=== PATIENT | female | born 1935 | race Caucasian/White ===

== ENCOUNTER 2016-08-25 09:36 | Emergency (ER) | payer OTHER ==
[2016-08-25 09:43] VITALS: TEMP 97.4; BMI 43.1
--- NOTE | 2016-08-25 10:01 | PDOC ---
History of Present Illness - General History Source: Patient Exam Limitations: No Limitations - History of Present Illness Initial Comments: 08/25/16 11:51 The patient is a 80 year old turkish speaking female, accompanied by daughter with a significant past medical history of HTN, CVA (on plavix), seizure, panic attacks, anxiety, depression who presents to the emergency department with suprapubic pain, vomiting and nausea. The patient states she visited DR last month and was seen by her doctor there for lower abdominal pain. She was found to have a UTI and was prescribed Ciprofloxacin. The patient has not been compliant due to persistent nausea. She also reports minor dysuria however denies frequency, urgency or hematuria. She denies chest pain, headache or dizziness. She denies fever, chills, diarrhea or constipation. She denies dysuria, Allergies: Penicillins Past surgical history:Cholecystectomy, L knee replacement Social history: Denies PCP: None <Ayleen Loo - Last Filed: 08/25/16 11:50> <Elizabeth Snyder - Last Filed: 08/25/16 14:19> - General Chief Complaint: Pain Stated Complaint: ABDOMINAL PAIN/vomiting Time Seen by Provider: 08/25/16 10:01 Past History <Ayleen Loo - Last Filed: 08/25/16 11:50> - Past Medical History CVA: Yes ("MINI-STROKE" 1 YR AGO) HTN: Yes Psychiatric Problems: Yes Seizures: Yes (due to panic attack) Other medical history: anxiety - Surgical History Abdominal Surgery: Yes ("reconstruction") Cholecystectomy: Yes Orthopedic Surgery: Yes (LT KNEE REPLACEMENT) - Psycho/Social/Smoking Cessation Hx Anxiety: No Suicidal Ideation: No Smoking Status: No Smoking History: Never smoked Have you smoked in the past 12 months: No Number of Cigarettes Smoked Daily: 0 Information on smoking cessation initiated: No Hx Alcohol Use: No Drug/Substance Use Hx: No Substance Use Type: None Hx Substance Use Treatment: No <Elizabeth Snyder - Last Filed: 08/25/16 14:19> - Past Medical History Allergies/Adverse Reactions: Allergies Allergy/AdvReac Type Severity Reaction Status Date / Time Penicillins AdvReac Severe Vomiting Verified 08/25/16 09:43 Home Medications: Ambulatory Orders Nebivolol [Bystolic -] 5 mg PO DAILY 05/11/16 Pregabalin [Lyrica] 100 mg PO BID 05/11/16 Omeprazole 40 mg PO DAILY 05/13/16 Levetiracetam [Keppra -] 500 mg PO BID #60 tablet 05/14/16 Ciprofloxacin HCl [Cipro] 250 mg PO BID 08/25/16 Review of Systems - Review of Systems Able to Perform ROS?: Yes Comments:: 08/25/16 11:51 Constitutional - Pt denies Fever, Chills, weakness, HEENT: Denies vision changes, sore throat RESPIRATORY: Denies cough, sob, hemoptysis CARDIAC: Denies chest pain, palpitations, light headedness, leg swelling ABD/GI: + suprapubic abdominal pain. + nausea, vomiting. No blood per rectum, melena, diarrhea : Denies dysuria, frequency, discharge MUSCULOSKELETAL - Denies back pain, joint swelling SKIN - Denies bruising, erythema, rash NEUROLOGICAL: Denies headache, numbness, focal weakness, tingling, ataxia, weakness HEMATOLOGIC: Denies anemia, easy bruising, easy bleeding <Ayleen Loo - Last Filed: 08/25/16 11:50> *Physical Exam - Vital Signs Last Vital Signs Temp Pulse Resp BP Pulse Ox 97.4 F L 71 19 199/102 96 08/25/16 09:41 08/25/16 09:41 08/25/16 09:41 08/25/16 09:41 08/25/16 09:41 - Physical Exam Comments: 08/25/16 11:51 GENERAL: + obese. The patient is awake, alert, and fully oriented, Nontoxic - in no acute distress. HEAD: Normocephalic, atraumatic. EYES: Extraocular movements intact, sclera anicteric, conjunctiva clear. ENT: Normal voice, moist mucous membranes. NECK: Normal range of motion, supple without lymphadenopathy, JVD, or masses. LUNGS: Breath sounds equal, clear to auscultation bilaterally. No wheezes, no crackles, no rales. HEART: Regular rate and rhythm, normal S1 and S2 without murmur, rub or gallop. ABDOMEN: + suprapubic tenderness to palpation. Soft, normoactive bowel sounds. No guarding, no rebound. No masses. EXTREMITIES: Normal range of motion, no edema. No clubbing or cyanosis. No cords , erythema, or tenderness. NEUROLOGICAL: Fully Oriented, Alert, Normal Mood/Affect, Motor Strength 5/5. No facial asymmetry, Normal speech. SKIN: Warm, Dry, normal turgor, no rashes or lesions noted. <Ayleen Loo - Last Filed: 08/25/16 11:50> - Vital Signs Last Vital Signs Temp Pulse Resp BP Pulse Ox 97.4 F L 71 19 199/102 96 08/25/16 09:41 08/25/16 09:41 08/25/16 09:41 08/25/16 09:41 08/25/16 09:41 <Elizabeth Snyder - Last Filed: 08/25/16 14:19> ED Treatment Course - LABORATORY CBC & Chemistry Diagram: 08/25/16 12:01 08/25/16 12:01 <Elizabeth Snyder - Last Filed: 08/25/16 14:19> Medical Decision Making - Medical Decision Making 08/25/16 12:27 I, Dr. Elizabeth Snyder, attest that the scribes documentation that appears above has been prepared under my direction and personally reviewed by me. I confirmed that the note above accurately reflects all work, treatment, procedures, and medical decision-making performed by me. 08/25/16 14:15 Pt 's b/p decreased after labetalol in ed, pt had not taken her b/p meds today. PT's abdomominal pain improved, pt has cipro prescribed yesterday by her pcp for this pain, pt has RX from pcp to have abdominal sonogram done to evaluate this pain. Pt's headache resolved after tylenol, Pt stable for dc home with out pt f/u with pcp, pt to take cipro ordered by pcp yesterday <Elizabeth Snyder - Last Filed: 08/25/16 14:19> *DC/Admit/Observation/Transfer - Attestations Scribe Attestion: 08/25/16 11:51 Documentation prepared by Ayleen Loo, acting as medical appliance maker for Elizabeth Snyder MD <Ayleen Loo - Last Filed: 08/25/16 11:50> - Discharge Dispostion Admit: No <Elizabeth Snyder - Last Filed: 08/25/16 14:19> Diagnosis at time of Disposition: UTI (urinary tract infection), Abdominal pain - Discharge Dispostion Disposition: HOME Condition at time of disposition: Stable - Referrals Referrals: STAFF,NOT ON [Primary Care Provider] - - Patient Instructions Additional Instructions: return to ed for fever, increased pain in abdomen, nausea and vomiting or as needed. Pt agrees with this dc plan
[2016-08-25] MEDS ORDERED: LABETALOL HCL 5 MG/1 ML (100MG/20 ML VIAL) IVPUSH ONE (11:40)
[2016-08-25] MEDS ORDERED: LABETALOL HCL 5 MG/1 ML (200MG/40ML VIAL) IVPB ONE (12:14)
[2016-08-25 12:23] LABS: BASOPHIL 0.9 % (0-2.0); EOSINOPHIL 0.4 % (0-4.5); MCH 25.5 pg (25.7-33.7); MEAN CELL VOLUME 77.5 fl (80-96); MEAN PLT VOLUME 7.6 fl (7.5-11.1); NEUTROPHILS 66.3 % (42.8-82.8); PLATELET COUNT 256 K/MM3 (134-434); RDW 17.9 % (11.6-15.6); WHITE BLOOD COUNT 9.9 K/mm3 (4.0-10.0)
[2016-08-25 12:27] LABS: URINE APPEARANCE CLEAR; URINE BILIRUBIN NEGATIVE (NEGATIVE); URINE BLOOD NEGATIVE (NEGATIVE); URINE COLOR STRAW; URINE GLUCOSE (UA) NEGATIVE (NEGATIVE); URINE KETONE TRACE (NEGATIVE); URINE NITRITE NEGATIVE (NEGATIVE); URINE PROTEIN NEGATIVE (NEGATIVE); URINE UROBILINOGEN NEGATIVE E.U./dl (0.2-1.0)
[2016-08-25 12:34] LABS: URINE LEUK ESTERASE TRACE (NEGATIVE)
[2016-08-25 12:42] LABS: URINE BACTERIA MODERATE /hpf (NONE SEEN); URINE MUCUS RARE; URINE RBC <1 /hpf (0-3); URINE WBC 12 /hpf (3-5)
[2016-08-25 12:48] LABS: ALBUMIN 3.5 g/dl (3.4-5.0); ANION GAP 10 (8-16); BILIRUBIN,TOTAL 0.7 mg/dL (0.2-1.0); CALCIUM 9.3 mg/dL (8.5-10.1); CO2 26 mmol/L (21-32); CREATININE 0.9 mg/dL (0.55-1.02); GLUCOSE,RANDOM 94 mg/dL (74-106); SGOT/AST 28 U/L (15-37); SGPT/ALT 28 U/L (12-78); TOT PROT 7.6 g/dl (6.4-8.2)
[2016-08-25 12:49] LABS: ALK PHOS 106 U/L (45-117)
[2016-08-25] MEDS ORDERED: ACETAMINOPHEN 500 MG TABLET (FP) PO ONE (13:32)
[2016-08-25] MEDS ORDERED: ACETAMINOPHEN 325 MG TABLET (FP) ONE (13:40)
[2016-08-25 14:27] VITALS: BP 147/85; PULSE 90
== END 2016-08-25 14:30 | disposition home or self-care (01) ==
LOC: JER 09:36
DX: N39.0 Urinary tract infection, site not specified (principal); F41.9 Anxiety disorder, unspecified; G40.909 Epilepsy, unspecified, not intractable, without status epilepticus; I10 Essential (primary) hypertension; Z86.73 Personal history of transient ischemic attack (TIA), and cerebral infarction without residual deficits; Z79.01 Long term (current) use of anticoagulants; B96.89 Other specified bacterial agents as the cause of diseases classified elsewhere
CPT/HCPCS: 36415; 80053; 81003; 81015; 85025; 87086; 87186; 99283-25

== ENCOUNTER 2018-03-19 17:07 | Emergency (ER) | payer OTHER ==
[2018-03-19 17:43] VITALS: BP 166/53; PULSE 69; TEMP 97.4; BMI 45.7
--- NOTE | 2018-03-19 19:49 | PDOC ---
History of Present Illness - General Chief Complaint: Wound Stated Complaint: EDEMA Time Seen by Provider: 03/19/18 19:24 History Source: Patient, Care Provider - History of Present Illness Initial Comments: 03/19/18 19:45 82 year old female with b/l lower extremity swelling right > left for 1 month with worsening redness and pain to right calf and ankle. denies trauma or injury , fever/ chills. patient recent return to > [facility]. 03/19/18 23:11 Past History - Past Medical History Allergies/Adverse Reactions: Allergies Allergy/AdvReac Type Severity Reaction Status Date / Time Penicillins AdvReac Severe Vomiting Verified 08/25/16 09:43 Home Medications: Ambulatory Orders Nebivolol [Bystolic -] 5 mg PO DAILY 05/11/16 Pregabalin [Lyrica] 100 mg PO BID 05/11/16 Omeprazole 40 mg PO DAILY 05/13/16 Buspirone HCl [Buspar -] 30 mg PO BID 03/19/18 Clopidogrel Bisulfate [Plavix] 75 mg PO DAILY 03/19/18 Gabapentin 300 mg PO BID 03/19/18 Sulfamethoxazole/Trimethoprim [Bactrim Ds -] 1 tab PO BID #14 tablet 03/19/18 CVA: Yes ("MINI-STROKE" 1 YR AGO) COPD: No HTN: Yes Psychiatric Problems: Yes Seizures: Yes (due to panic attack) - Surgical History Abdominal Surgery: Yes ("reconstruction") Cholecystectomy: Yes Orthopedic Surgery: Yes (LT KNEE REPLACEMENT) - Immunization History Immunization Up to Date: Yes - Suicide/Smoking/Psychosocial Hx Smoking Status: No Smoking History: Never smoked Have you smoked in the past 12 months: No Number of Cigarettes Smoked Daily: 0 Information on smoking cessation initiated: No Hx Alcohol Use: No Drug/Substance Use Hx: No Substance Use Type: None Hx Substance Use Treatment: No Review of Systems - Review of Systems Able to Perform ROS?: Yes Is the patient limited Burkinan proficient: No Integumentary: Yes: Erythema (right leg redness) *Physical Exam - Vital Signs Last Vital Signs Temp Pulse Resp BP Pulse Ox 97.4 F L 69 18 166/53 98 03/19/18 17:32 03/19/18 17:32 03/19/18 17:32 03/19/18 17:32 03/19/18 17:32 - Physical Exam General Appearance: Yes: Appropriately Dressed, Obese Respiratory/Chest: positive: Lungs Clear, Normal Breath Sounds Cardiovascular: positive: Regular Rhythm, Regular Rate Gastrointestinal/Abdominal: positive: Normal Bowel Sounds, Soft Musculoskeletal: positive: Normal Inspection Extremity: positive: Pedal Edema, Calf Tenderness (r> L), Other (gross lower ecxtremity edema. right leg warm to touch woth erythem) Integumentary: positive: Normal Color, Dry, Warm Neurologic: positive: Fully Oriented, Alert ED Treatment Course - LABORATORY CBC & Chemistry Diagram: 03/19/18 20:11 03/19/18 20:11 Medical Decision Making - Medical Decision Making 03/19/18 20:06 A: Lower extremty edema P; labs Chest xray US 03/19/18 23:[address] hinds: Negative for DVT. 03/19/18 23:01 *DC/Admit/Observation/Transfer Diagnosis at time of Disposition: Lower extremity edema Cellulitis Qualifiers: Site of cellulitis: extremity Site of cellulitis of extremity: lower extremity Laterality: right Qualified Code(s): L03.115 - Cellulitis of right lower limb - Discharge Dispostion Disposition: HOME - Prescriptions Prescriptions: Sulfamethoxazole/Trimethoprim [Bactrim Ds -] 1 tab PO BID #14 tablet - Referrals - Patient Instructions Printed Discharge Instructions: DI for Peripheral Edema -- Bilateral Additional Instructions: elevate your extremity as much as possible. please follow up with your doctor in 1 -2 days for a wound check return immediately for any worsening symptoms, respiratory distress - Post Discharge Activity
[2018-03-19 20:20] LABS: BASO % 0.5 % (0-2.0); EOS % 2.6 % (0-4.5); HEMATOCRIT 35.6 % (32.4-45.2); HEMOGLOBIN 11.7 GM/dL (10.7-15.3); LYMPH % 25.7 % (8-40); MCH 25.8 pg (25.7-33.7); MEAN CELL VOLUME 78.2 fl (80-96); MEAN PLT VOLUME 7.8 fl (7.5-11.1); MONO % 10.8 % (3.8-10.2); NEUT % 60.4 % (42.8-82.8); PLATELET COUNT 246 K/MM3 (134-434); RBC 4.55 M/mm3 (3.60-5.2); RDW 17.1 % (11.6-15.6); WHITE BLOOD COUNT 7.5 K/mm3 (4.0-10.0)
[2018-03-19 20:39] LABS: INR 1.06 (0.83-1.09)
[2018-03-19 20:57] LABS: ALBUMIN 3.3 g/dl (3.4-5.0); ANION GAP 7 MMOL/L (8-16); BILIRUBIN,TOTAL 0.5 mg/dL (0.2-1); BLOOD UREA NITROGEN 19 mg/dL (7-18); CALCIUM 9.7 mg/dL (8.5-10.1); CHLORIDE 112 mmol/L (98-107); CO2 26 mmol/L (21-32); CREATININE 0.8 mg/dL (0.55-1.3); GLUCOSE,RANDOM 127 mg/dL (74-106); MAGNESIUM 2.3 mg/dL (1.8-2.4); POTASSIUM 4.1 mmol/L (3.5-5.1); SGOT/AST 33 U/L (15-37); SGPT/ALT 25 U/L (13-61); SODIUM 145 mmol/L (136-145); TOT PROT 7.9 g/dl (6.4-8.2)
[2018-03-19 21:00] LABS: ALK PHOS 138 U/L (45-117); N-TERMINAL BNP 209.49 pg/ml (5-450)
[2018-03-19] MEDS ORDERED: FUROSEMIDE 40 MG/4 ML INJECTABLE VIAL IVPUSH ONE ×2 (23:02→23:03)
[2018-03-19] MEDS ORDERED: SULFAMETHOXAZOLE/TRIMETHOPRIM 800MG/160MG D.S. TABLET PO ONE (23:08)
[2018-03-19] MEDS ORDERED: SULFAMETHOXAZOLE/TRIMETHOPRIM 800MG/160MG D.S. TABLET ONE (23:14)
[2018-03-19] MEDS ORDERED: FUROSEMIDE 40 MG/4 ML INJECTABLE VIAL ONE (23:15)
--- NOTE | 2018-03-20 09:57 | EKG ---
Test Reason : Blood Pressure : / mmHG Vent. Rate : 066 BPM Atrial Rate : 066 BPM P-R Int : 160 ms QRS Dur : 078 ms QT Int : 404 ms P-R-T Axes : 022 -04 030 degrees QTc Int : 423 ms NORMAL SINUS RHYTHM NORMAL ECG WHEN COMPARED WITH ECG OF 11-MAY-2016 12:40, NO SIGNIFICANT CHANGE WAS FOUND Confirmed by FRANCOIS SAGE MD ([id number]) on 03/20/2018 9:56:57 AM Referred By: Confirmed By:FRANCOIS SAGE MD
== END 2018-03-20 01:25 | disposition home or self-care (01) ==
LOC: JER 17:07
DX: H92.02 Otalgia, left ear (principal); G51.0 Bell's palsy; F41.8 Other specified anxiety disorders
CPT/HCPCS: 36415; 80053; 82550; 83735; 83880; 84484; 85025; 85610; 93005; 93010; 93970-TC; 99283-25

== ENCOUNTER 2019-02-13 10:11 | Emergency (ER) | payer OTHER ==
[2019-02-13 10:28] VITALS: BP 113/68; PULSE 65; TEMP 98.3; BMI 45.1
--- NOTE | 2019-02-13 10:43 | PDOC ---
History of Present Illness - General Chief Complaint: Headache Stated Complaint: FALL/HEADACHE Time Seen by Provider: 02/13/19 10:43 - History of Present Illness Initial Comments: 02/13/19 10:58 The patient is an 83 year old female with a history of HTN, Anxiety, CVA on plavix who presents for evaluation of headache. The patient is accompanied by family who assist in providing the history. They report that the patient experienced a mechanical fall 1 week ago and since then, has been experiencing a throbbing headache with associated nausea. She states that the headache has been persistent despite taking tylenol at home prompting her presentation to the ED for further evaluation. She otherwise denies fevers, chills, SOB, chest pain, vomiting, abdominal pain, numbness, tingling, weakness, or changes with urination or bowel movements. Past History - Past Medical History Allergies/Adverse Reactions: Allergies Allergy/AdvReac Type Severity Reaction Status Date / Time Penicillins AdvReac Severe Vomiting Verified 02/13/19 10:24 Home Medications: Ambulatory Orders Nebivolol [Bystolic -] 5 mg PO DAILY 05/11/16 Omeprazole 40 mg PO DAILY 05/13/16 Clopidogrel Bisulfate [Plavix] 75 mg PO DAILY 03/19/18 Gabapentin 300 mg PO TID 03/19/18 Sertraline HCl 100 mg PO DAILY 02/13/19 CVA: Yes ("MINI-STROKE" 1 YR AGO) COPD: No HTN: Yes Psychiatric Problems: Yes Seizures: Yes (due to panic attack) - Surgical History Abdominal Surgery: Yes ("reconstruction") Cholecystectomy: Yes Orthopedic Surgery: Yes (LT KNEE REPLACEMENT) - Immunization History Immunization Up to Date: Yes - Suicide/Smoking/Psychosocial Hx Smoking Status: No Smoking History: Never smoked Have you smoked in the past 12 months: No Number of Cigarettes Smoked Daily: 0 Information on smoking cessation initiated: No Hx Alcohol Use: No Drug/Substance Use Hx: No Substance Use Type: None Hx Substance Use Treatment: No Review of Systems - Review of Systems Comments:: 02/13/19 11:00 Constitutional: No fevers, chills, fatigue, malaise HEENT: No Rhinorrhea, nasal congestion, visual changes Cardiovascular: No chest pain, syncope, palpitations, lightheadedness Respiratory: No Cough, SOB, Hemoptysis, Gastrointestinal: No Abdominal pain, Nausea, Vomiting, Constipation, Diarrhea, Melena Genitourinary: No Dysuria, Frequency, Urgency, Hesitancy, Hematuria, Flank pain Musculoskeletal: No Myalgia, arthralgia Skin: No rashes, itching, bruising, pallor Neurologic: Headache. No Dizziness, Numbness, Weakness, or Tingling Psychiatric: No Hallucinations. No SI or HI *Physical Exam - Vital Signs Last Vital Signs Temp Pulse Resp BP Pulse Ox 98.3 F 65 16 113/68 96 02/13/19 10:24 02/13/19 10:24 02/13/19 10:24 02/13/19 10:24 02/13/19 10:24 - Physical Exam Comments: 02/13/19 11:00 General Appearance: Nourished. No Apparent Distress HEENT: EOMI, ANUP. No Pharyngeal Erythema, Tonsillar Exudate, Tonsillar Erythema Neck: No Cervical Lymphadenopathy Respiratory/Chest: Lungs Clear, Normal Breath Sounds. No Crackles, Rales, Rhonchi, Wheezing Cardiovascular: Regular Rhythm, Regular Rate. No Murmur, Gallops, Rubs Gastrointestinal/Abdominal: Normal Bowel Sounds, Soft. No Guarding, Rebound, Tenderness Musculoskeletal: No CVA Tenderness Extremity: Normal Capillary Refill Integumentary: Normal Color, Dry, Warm Neurologic: video system repairer II-XII NML intact, Fully Oriented, Alert, Normal Mood/Affect, Normal Response, Motor Strength 5/5. ED Treatment Course - LABORATORY CBC & Chemistry Diagram: 02/13/19 10:55 02/13/19 10:55 Medical Decision Making - Medical Decision Making 02/13/19 11:01 The patient is an 83 year old female with a history of HTN, Anxiety, CVA on plavix who presents for evaluation of headache. Differential includes but is not limited to: Intracranial process, headache, Infections, Metabolic derangement. Given the patient's history and physical exam, we will obtain a cbc, cmp, coags, head CT to evaluate further. We will treat with iv tylenol, benadryl, reglan and continue to monitor and reassess while here in the ED. 02/13/19 12:30 CBC, cmp, coags were unremarkable. Head CT demonstrated no acute pathology as read by our radiologist. The patient was reassessed and reports improvement in their symptoms. We are comfortable discharging the patient home in stable condition. Patient and family made aware of impression and plan, return precautions discussed including but not limited to worsening pain or symptoms, fevers, or signs of infection, chest pain, respiratory distress, inability to tolerate oral intake, dehydration, syncope, or neurologic changes. The patient is to follow up with PMD as recommended within 1 week, follow up information provided and the patient will call for an appointment. The patient is to take medications as instructed for duration of time and continue with supportive care , avoid triggers and precipitants. Patient is safe for outpatient follow-up. *DC/Admit/Observation/Transfer Diagnosis at time of Disposition: Headache Qualifiers: Headache type: unspecified Headache chronicity pattern: unspecified pattern Intractability: not intractable Qualified Code(s): R51 - Headache - Discharge Dispostion Disposition: HOME Condition at time of disposition: Stable Decision to Admit order: No - Referrals Referrals: Eze Hwang MD [Primary Care Provider] - - Patient Instructions Printed Discharge Instructions: DI for Headache Additional Instructions: 1) Please follow-up with your primary care doctor in the next 2-3 days. Please call tomorrow to schedule a follow up appointment. If you cannot follow up with your doctor within 1 week please return to the Emergency Department for any urgent issues. 2) Your laboratory and imaging results were normal here in the ER. 3) If you have any worsening of symptoms or any other concerns please return to the ER immediately. Return if worsening symptoms including fevers, headache, vomiting, visual or hearing disturbances, abdominal pain, chest pain, shortness of breath, syncope, dehydration, inability to take things by mouth/vomiting, altered mental status, or worsening concerning symptoms. 4) Please continue taking your home medications as directed. Side effects may include upset stomach, abdominal pain, vomiting, or diarrhea. Do not drink alcohol with your medications. 1) Por favor, roxann un seguimiento con tom mdico de atencin primaria en los prximos 2-3 zambrano. Por favor llame maana para programar radha nano de seguimiento. Si no puede hacer un seguimiento con tom mdico dentro de 1 semana, por favor regrese al Departamento de Emergencias para cualquier problema urgente. 2) Los resultados de tom laboratorio y de imgenes fueron normales aqu en Urgencias. 3) Si tiene algn empeoramiento de los sntomas o cualquier otra preocupacin, por favor regrese a la urgencia inmediatamente. Regrese si empeora los sntomas mali fiebre, dolor de phill, vmitos, trastornos visuales o auditivos, dolor abdominal, dolor en el pecho, dificultad para respirar, sncope, deshidratacin , incapacidad para chris cosas por va oral/vmitos, alteracin del estado mental o empeoramiento sntomas. 4) Por favor, contine tomando marshall medicamentos caseros segn las instrucciones. Los efectos secundarios pueden incluir malestar estomacal, dolor abdominal, vmitos o diarrea. No mariam alcohol con marshall medicamentos. - Post Discharge Activity
[2019-02-13] MEDS ORDERED: METOCLOPRAMIDE HCL INJECTION 10 MG/2 ML VIAL IVPUSH ONE (10:53)
[2019-02-13] MEDS ORDERED: ACETAMINOPHEN 1000 MG/100 ML VIAL (NON FORMULARY) IVPB ONE (10:53)
[2019-02-13] MEDS ORDERED: METOCLOPRAMIDE HCL INJECTION 10 MG/2 ML VIAL ONE (11:05)
[2019-02-13] MEDS ORDERED: ACETAMINOPHEN INJECTION 100 ML IVPB ONE (11:05)
--- NOTE | 2019-02-13 11:21 | PDOC ---
Attending Attestation - Resident Resident Name: Shaheen Gardunoel - ED Attending Attestation I have performed the following: I have examined & evaluated the patient, The case was reviewed & discussed with the resident, I agree w/resident's findings & plan, Exceptions are as noted - HPI HPI: 02/13/19 11:16 Ms. Maldonado is an 83 year old female h/o HTN, Anxiety, CVA on plavix who presents for evaluation of headache. Pt s/p mechanical fall 1 week ago, with head trauma No LOC at the time Since then, she has had a throbbing headache with associated nausea. H/A has persisted despite taking tylenol at She otherwise denies fevers, chills, SOB, chest pain, vomiting, abdominal pain, numbness, tingling, weakness, or changes with urination or bowel movements. - Physicial Exam PE: 02/13/19 11:18 GENERAL: The patient is in no acute distress. ENT: Ears normal, nares patent, oropharynx clear without exudates. Moist mucous membranes. NECK: Normal range of motion, supple LUNGS: Breath sounds equal, clear to auscultation bilaterally. No wheezes, and no crackles. HEART:Regular rate and rhythm, normal S1 and S2 without murmur, rub or gallop. ABDOMEN: Soft, nontender, normoactive bowel sounds. EXTREMITIES: Normal range of motion, no edema. NEUROLOGICAL: Cranial nerves II through XII grossly intact. Normal speech. No focal neurological deficits. SKIN: Warm, Dry, normal turgor, no rashes or lesions noted. - Medical Decision Making 02/13/19 11:18 83 yo F presenting with a complaint of headache s/p mechanical fall with head trauma DD: ICH, concussion, tension headache Will do: CT, basic labs, Re assess 02/13/19 12:36 Laboratory Tests 02/13/19 02/13/19 02/13/19 10:55 10:55 10:55 WBC 6.7 Hgb 11.5 Hct 34.3 Plt Count 185 D INR 1.01 BUN [address] head: No acute intracranial hemorrhage, mass, mass effect Pt states she feels better, H/A completely resolved Will plan to discharge to home Return to the ER with any other concerns or complaints 02/13/19 12:38
[2019-02-13 11:36] LABS: BASO % 0.7 % (0-2.0); EOS % 1.6 % (0-4.5); HEMATOCRIT 34.3 % (32.4-45.2); HEMOGLOBIN 11.5 GM/dL (10.7-15.3); LYMPH % 24.7 % (8-40); MCH 24.9 pg (25.7-33.7); MCHC 33.6 g/dl (32.0-36.0); MEAN PLT VOLUME 8.2 fl (7.5-11.1); MONO % 10.4 % (3.8-10.2); NEUT % 62.6 % (42.8-82.8); PLATELET COUNT 185 K/MM3 (134-434); RBC 4.64 M/mm3 (3.60-5.2); RDW 18.9 % (11.6-15.6); WHITE BLOOD COUNT 6.7 K/mm3 (4.0-10.0)
[2019-02-13 11:51] LABS: INR 1.01 (0.83-1.09); PROTHROMBIN TIME (PATIENT) 11.9 SEC (9.7-13.0)
[2019-02-13 11:54] LABS: ACTIVATED PTT 27.4 SECONDS (25.2-36.5)
[2019-02-13 12:02] LABS: ALBUMIN 3.3 g/dl (3.4-5.0); BILIRUBIN,TOTAL 0.6 mg/dL (0.2-1); BLOOD UREA NITROGEN 13.7 mg/dL (7-18); CALCIUM 8.9 mg/dL (8.5-10.1); CREATININE 0.8 mg/dL (0.55-1.3); POTASSIUM 4.4 mmol/L (3.5-5.1); TOT PROT 7.2 g/dl (6.4-8.2)
== END 2019-02-13 12:39 | disposition home or self-care (01) ==
LOC: JER 10:11
PROC: 3E033NZ Introduction of Analgesics, Hypnotics, Sedatives into Peripheral Vein, Percutaneous Approach (ICD-10-PCS; principal; 2019-02-13)
PROC: 3E033GC Introduction of Other Therapeutic Substance into Peripheral Vein, Percutaneous Approach (ICD-10-PCS; 2019-02-13)
DX: R51 Headache (principal); W18.39XA Other fall on same level, initial encounter; Y93.89 Activity, other specified; Y92.89 Other specified places as the place of occurrence of the external cause; I10 Essential (primary) hypertension; F41.9 Anxiety disorder, unspecified; Z86.73 Personal history of transient ischemic attack (TIA), and cerebral infarction without residual deficits; Z79.01 Long term (current) use of anticoagulants
CPT/HCPCS: 36415; 70450-TC; 80053; 85025; 85610; 85730; 96374; 96375; 99282-25; J0131

== ENCOUNTER 2019-06-01 15:02 | Inpatient (IN) | payer OTHER ==
--- NOTE | 2019-06-01 16:10 | PDOC ---
History of Present Illness - General Chief Complaint: Pain Stated Complaint: ABD PAIN Time Seen by Provider: 06/01/19 15:57 History Source: Patient Exam Limitations: No Limitations - History of Present Illness Initial Comments: 06/01/19 21:03 83 yo F with a hx of CVA, HTN, cholecystectomy, obesity, and gastric sleeve surgery (20 years ago per the patient) presents to the emergency department with epigastric pain that has been ongoing for 5 days. Per the patient, the pain has been constant, 8/10, cramping like sensation, without radiation, worsens with food and drink intake, with the following concurrent symptoms: vomiting (5x+ without hematemesis and bile) and diarrhea (without hematochezia) . The patient also has had suprapubic pain for the past 3 days. Denies flank pain. Denies the following: fevers, chills, chest pain, SOB, leg pain/swelling. Endorses dysuria. Denies recent travels. Allergies: PCN Social: Denies tobacco, alcohol, and substance abuse. Past History - Past Medical History Allergies/Adverse Reactions: Allergies Allergy/AdvReac Type Severity Reaction Status Date / Time Penicillins AdvReac Severe Vomiting Verified 06/01/19 21:19 Home Medications: Ambulatory Orders Nebivolol [Bystolic -] 5 mg PO DAILY 05/11/16 Omeprazole 40 mg PO DAILY 05/13/16 Clopidogrel Bisulfate [Plavix] 75 mg PO DAILY 03/19/18 Gabapentin 300 mg PO TID 03/19/18 Sertraline HCl 100 mg PO DAILY 02/13/19 Acetaminophen [Mapap] 1,000 mg PO QID PRN 06/01/19 Buspirone HCl [Buspar -] 30 mg PO BID 06/01/19 Cyclosporine [Restasis] 1 each OP BID 06/01/19 Meclizine HCl [Antivert -] 25 mg PO BID PRN 06/01/19 Pregabalin [Lyrica] 100 mg PO TID 06/01/19 Cefuroxime Axetil [Ceftin -] 500 mg PO Q12H #14 tablet 06/03/19 CVA: Yes ("MINI-STROKE" 1 YR AGO) COPD: No HTN: Yes Psychiatric Problems: Yes Seizures: Yes (due to panic attack) - Surgical History Abdominal Surgery: Yes ("reconstruction") Cholecystectomy: Yes Orthopedic Surgery: Yes (LT KNEE REPLACEMENT) - Immunization History Immunization Up to Date: Yes - Psycho Social/Smoking Cessation Hx Smoking Status: No Smoking History: Never smoked Have you smoked in the past 12 months: No Number of Cigarettes Smoked Daily: 0 Information on smoking cessation initiated: No Hx Alcohol Use: No Drug/Substance Use Hx: No Substance Use Type: None Hx Substance Use Treatment: No Review of Systems - Review of Systems Able to Perform ROS?: Yes Is the patient limited Sammarinese proficient: No Constitutional: No: Chills, Diaphoresis, Fever HEENTM: No: Eye Pain, Ear Pain, Nose Pain, Throat Pain, Mouth Pain Respiratory: No: Cough, Shortness of Breath, Hemoptysis Cardiac (ROS): No: Chest Pain, Lightheadedness, Palpitations ABD/GI: Yes: Diarrhea, Nausea, Vomiting, Abdominal cramping. No: Constipated, Rectal Bleeding, Tarry Stools : Yes: Dysuria. No: Hematuria, Incontinence Musculoskeletal: No: Back Pain, Joint Pain, Neck Pain Integumentary: No: Bruising, Erythema, Rash Neurological: No: Headache, Numbness, Tingling, Tremors Psychiatric: No: Change in Appetite Endocrine: No: Unexplained Weight Gain Hematologic/Lymphatic: No: Anemia *Physical Exam - Vital Signs Last Vital Signs Temp Pulse Resp BP Pulse Ox 97.7 F 76 17 173/67 H 98 06/01/19 15:34 06/01/19 15:34 06/01/19 15:34 06/01/19 15:34 06/01/19 15:34 - Physical Exam General Appearance: Yes: Nourished, Appropriately Dressed, Obese. No: Apparent Distress, Intoxicated HEENT: positive: EOMI, ANUP, Normal ENT Inspection, Normal Voice, Symmetrical, TMs Normal, Pharynx Normal, Hearing Grossly Normal. negative: Pale Conjunctivae , Scleral Icterus (R), Scleral Icterus (L), Muffled/Hoarse voice, Pharyngeal Erythema, Tonsillar Exudate, Tonsillar Erythema, Nasal Congestion, Rhinorrhea, Excessive drooling Neck: positive: Trachea midline, Supple. negative: Tender, Lymphadenopathy (R) , Lymphadenopathy (L), Tender lateral, Tender midline Respiratory/Chest: positive: Lungs Clear, Normal Breath Sounds. negative: Chest Tender, Respiratory Distress, Accessory Muscle Use, Crackles, Rales, Rhonchi, Stridor, Wheezing Cardiovascular: positive: Regular Rhythm, Regular Rate, S1, S2. negative: Systolic Murmur Gastrointestinal/Abdominal: positive: Normal Bowel Sounds, Tender (epigastric region. No RUQ tenderness. no rebound tenderness. ). negative: Distended, Guarding Lymphatic: negative: Adenopathy Musculoskeletal: positive: Normal Inspection. negative: CVA Tenderness, Vertebral Tenderness Extremity: positive: Normal Capillary Refill, Normal Range of Motion, Swelling ( 1+ edema bilateral LE). negative: Normal Inspection, Tender Integumentary: positive: Normal Color, Dry, Warm. negative: Ecchymosis Neurologic: positive: emts II-XII NML intact, Fully Oriented, Alert, Normal Mood/ Affect, Normal Response ED Treatment Course - LABORATORY CBC & Chemistry Diagram: 06/02/19 05:50 06/02/19 05:50 Medical Decision Making - Medical Decision Making 83 yo F with a hx of CVA, HTN, cholecystectomy, obesity, and gastric sleeve surgery (20 years ago per the patient) presents to the emergency department with epigastric pain that has been ongoing for 5 days. Initial vitals: Initial Vital Signs Temp Pulse Resp BP Pulse Ox 97.7 F 76 17 173/67 H 98 06/01/19 15:34 06/01/19 15:34 06/01/19 15:34 06/01/19 15:34 06/01/19 15:34 Work up: Patient presents to the emergency department with epigastric and suprapubic pain that was evident on exam. Currently afebrile. Concerns for pancreatitis induced by cholelithiasis vs gastritis vs obstruction secondary to sleeve malfunction. In addition, she has suprapubic tenderness. concerns for UTI. Will obtain cbc, cmp, UA, urine culture, lipase, ekg, trop, and abdomen and pelvis CT with oral and IV contrast . Laboratory Tests 06/01/19 06/01/19 06/01/19 16:57 16:57 16:57 WBC 9.1 RBC 5.29 H Hgb 12.5 Hct 37.8 MCV 71.5 L MCH 23.7 L MCHC 33.2 RDW 18.3 H Plt Count 365 D MPV 7.6 Absolute Neuts (auto) 6.0 Neutrophils % 65.2 Lymphocytes % 24.5 Monocytes % 8.3 Eosinophils % 0.8 Basophils % 1.2 Nucleated RBC % 0 Sodium 140 Potassium 4.4 Chloride 107 Carbon Dioxide 22 Anion Gap 10 BUN 10.8 Creatinine 0.9 Est GFR (CKD-EPI)AfAm 69.01 Est GFR (CKD-EPI)NonAf 59.55 Random Glucose 79 Calcium 9.8 Total Bilirubin 0.4 AST 47 H ALT 37 Alkaline Phosphatase 120 H Creatine Kinase 152 Creatine Kinase Index No Result Required. CK-MB (CK-2) < 1.0 Troponin I < 0.02 Total Protein 8.1 Albumin 3.2 L Lipase 54 L Urine Color Urine Appearance Urine pH Ur Specific [place] Urine Protein Urine Glucose (UA) Urine Ketones Urine Blood Urine Nitrite Urine Bilirubin Urine Urobilinogen Ur Leukocyte Esterase Urine WBC (Auto) Urine RBC (Auto) Urine Casts (Auto) U Epithel Cells (Auto) Urine Bacteria (Auto) 06/01/19 20:10 WBC RBC Hgb Hct MCV MCH MCHC RDW Plt Count MPV Absolute Neuts (auto) Neutrophils % Lymphocytes % Monocytes % Eosinophils % Basophils % Nucleated RBC % Sodium Potassium Chloride Carbon Dioxide Anion Gap BUN Creatinine Est GFR (CKD-EPI)AfAm Est GFR (CKD-EPI)NonAf Random Glucose Calcium Total Bilirubin AST ALT Alkaline Phosphatase Creatine Kinase Creatine Kinase Index CK-MB (CK-2) Troponin I Total Protein Albumin Lipase Urine Color Yellow Urine Appearance Cloudy Urine pH 8.0 Ur Specific [place] 1.014 Urine Protein Negative Urine Glucose (UA) Negative Urine Ketones Negative Urine Blood Negative Urine Nitrite Positive H Urine Bilirubin Negative Urine Urobilinogen 0.2 Ur Leukocyte Esterase 1+ H Urine WBC (Auto) 60 Urine RBC (Auto) 5 Urine Casts (Auto) 16 U Epithel Cells (Auto) 3.0 Urine Bacteria (Auto) >9000 labs within normal limits except for urine which shows UTI. Patient's abdomen and pelvis CT is pending final read. EKG: NSR without ST elevations or depressions. Q wave noted in lead II and aVF. No active chest pain. trop negative. Patient was signed out to Dr. Pizarro Discharge - Discharge Information Problems reviewed: Yes Clinical Impression/Diagnosis: Nausea & vomiting, Abdominal pain - Follow up/Referral - Patient Discharge Instructions - Post Discharge Activity
[2019-06-01] MEDS ORDERED: FAMOTIDINE 20 MG/50 ML IVPB 20 MG/50 ML MG IVPB ONE ×2 (16:12→16:42)
[2019-06-01] MEDS ORDERED: SODIUM CHLORIDE 500 ML IV STA (16:12)
[2019-06-01] MEDS ORDERED: ACETAMINOPHEN 1000 MG/100 ML VIAL (NON FORMULARY) IVPB ONE (16:12)
[2019-06-01] MEDS ORDERED: ONDANSETRON 4 MG/2 ML VIAL IVPUSH ONE (16:12)
--- NOTE | 2019-06-01 16:31 | PDOC ---
Attending Attestation - Resident Resident Name: AbidaKelvin - ED Attending Attestation I have performed the following: I have examined & evaluated the patient, The case was reviewed & discussed with the resident, I agree w/resident's findings & plan, Exceptions are as noted - HPI HPI: 06/01/19 16:17 83y hx of htn, cva, obesity sp gastric sleeve presents with burning nonradiating epigastric pain and vomiting for the past 5 days that wosrens with PO intake. Also endorses loose watery, non bloody stool. Pt also endorses dysuria for the past few days assoicated with mild superpubic pain. No alleviating factors. Denies any cp, sob, f/c, back pain, melena, bpr. No known sick contacts exam: no acute distress card: rrr, no mrg pulm: cta bl abd soft, mild epigastric and suparpubic tenderness ddx - gastirits, uti, pancreatitis consider acs, will obtain trop and ekg will give pepcid/maalox, fluids, - Physicial Exam PE: 06/01/19 16:32 Heart Score/ECG Review - ECG Impressions Comment:: 06/01/19 17:33 Twelve-lead EKG was performed and reviewed by me. There is normal sinus rhythm with a normal rate. Rate of 60 The intervals are normal. There is normal R wave progression There are no ST or T wave abnormalities.
[2019-06-01] MEDS ORDERED: ONDANSETRON 4 MG/2 ML VIAL ONE (16:42)
[2019-06-01] MEDS ORDERED: ACETAMINOPHEN INJECTION 100 ML IVPB ONE (16:42)
[2019-06-01 17:04] LABS: BASO % 1.2 % (0-2.0); EOS % 0.8 % (0-4.5); HEMATOCRIT 37.8 % (32.4-45.2); HEMOGLOBIN 12.5 GM/dL (10.7-15.3); LYMPH % 24.5 % (8-40); MCH 23.7 pg (25.7-33.7); MCHC 33.2 g/dl (32.0-36.0); MEAN CELL VOLUME 71.5 fl (80-96); MEAN PLT VOLUME 7.6 fl (7.5-11.1); MONO % 8.3 % (3.8-10.2); NEUT % 65.2 % (42.8-82.8); PLATELET COUNT 365 K/MM3 (134-434); RBC 5.29 M/mm3 (3.60-5.2); RDW 18.3 % (11.6-15.6); WHITE BLOOD COUNT 9.1 K/mm3 (4.0-10.0)
[2019-06-01 17:40] LABS: ALBUMIN 3.2 g/dl (3.4-5.0); BILIRUBIN,TOTAL 0.4 mg/dL (0.2-1); BLOOD UREA NITROGEN 10.8 mg/dL (7-18); CALCIUM 9.8 mg/dL (8.5-10.1); CREATININE 0.9 mg/dL (0.55-1.3); POTASSIUM 4.4 mmol/L (3.5-5.1); TOT PROT 8.1 g/dl (6.4-8.2)
--- NOTE | 2019-06-01 19:17 | PDOC ---
ED Treatment Course - LABORATORY CBC & Chemistry Diagram: 06/02/19 05:50 06/02/19 05:50 Medical Decision Making - Medical Decision Making Pt signed out to me by Dr. Tai, see prior note. 83 year old female with PMH HTN, CVA, obesity s/p gastric sleeve surgery presented to ED for epigastric burning pain associated with vomiting/diarrhea x5 days. She also admitted to dysuria and suprapubic pressure. Initial Vital Signs Temp Pulse Resp BP Pulse Ox 97.7 F 76 17 173/67 H 98 06/01/19 15:34 06/01/19 15:34 06/01/19 15:34 06/01/19 15:34 06/01/19 15:34 Afebrile. No tachycardia. No tachypnea. Hypertensive. No hypoxia on room air. EKG performed at 1723: rate 60, regular rhythm, normal axis, normal intervals, no acute ST changes. ED Medications Discontinued Medications Generic Name Dose Route Start Last Admin Trade Name Freq PRN Reason Stop Dose Admin Acetaminophen 1,000 mg 06/01/19 16:12 06/01/19 17:05 Ofirmev Injection - IVPB 06/01/19 16:13 1,000 mg ONCE ONE Administration Famotidine/Sodium Chloride 20 mg in 50 mls @ 100 mls/hr 06/01/19 16:12 17:05 Pepcid 20 Mg Premixed Ivpb - IVPB 06/01/19 16:41 100 mls/hr ONCE ONE Administration Sodium Chloride 500 mls @ 500 mls/hr 06/01/19 16:12 06/01/19 17:05 Normal Saline - IV 06/01/19 17:11 500 mls/hr ASDIR STA Administration Ondansetron HCl 4 mg 06/01/19 16:12 06/01/19 17:05 Zofran Injection IVPUSH 06/01/19 16:13 4 mg ONCE ONE Administration Laboratory Last Values WBC 9.1 K/mm3 (4.0-10.0) 06/01/19 16:57 RBC 5.29 M/mm3 (3.60-5.2) H 06/01/19 16:57 Hgb 12.5 GM/dL (10.7-15.3) 06/01/19 16:57 Hct 37.8 % (32.4-45.2) 06/01/19 16:57 MCV 71.5 fl (80-96) L 06/01/19 16:57 MCH 23.7 pg (25.7-33.7) L 06/01/19 16:57 MCHC 33.2 g/dl (32.0-36.0) 06/01/19 16:57 RDW 18.3 % (11.6-15.6) H 06/01/19 16:57 Plt Count 365 K/MM3 (134-434) D 06/01/19 16:57 MPV 7.6 fl (7.5-11.1) 06/01/19 16:57 Absolute Neuts (auto) 6.0 K/mm3 (1.5-8.0) 06/01/19 16:57 Neutrophils % 65.2 % (42.8-82.8) 06/01/19 16:57 Lymphocytes % 24.5 % (8-40) 06/01/19 16:57 Monocytes % 8.3 % (3.8-10.2) 06/01/19 16:57 Eosinophils % 0.8 % (0-4.5) 06/01/19 16:57 Basophils % 1.2 % (0-2.0) 06/01/19 16:57 Nucleated RBC % 0 % (0-0) 06/01/19 16:57 Sodium 140 mmol/L (136-145) 06/01/19 16:57 Potassium 4.4 mmol/L (3.5-5.1) 06/01/19 16:57 Chloride 107 mmol/L (98-107) 06/01/19 16:57 Carbon Dioxide 22 mmol/L (21-32) 06/01/19 16:57 Anion Gap 10 MMOL/L (8-16) 06/01/19 16:57 BUN 10.8 mg/dL (7-18) 06/01/19 16:57 Creatinine 0.9 mg/dL (0.55-1.3) 06/01/19 16:57 Est GFR (CKD-EPI)AfAm 69.01 06/01/19 16:57 Est GFR (CKD-EPI)NonAf 59.55 06/01/19 16:57 Random Glucose 79 mg/dL (74-106) 06/01/19 16:57 Calcium 9.8 mg/dL (8.5-10.1) 06/01/19 16:57 Total Bilirubin 0.4 mg/dL (0.2-1) 06/01/19 16:57 AST 47 U/L (15-37) H 06/01/19 16:57 ALT 37 U/L (13-61) 06/01/19 16:57 Alkaline Phosphatase 120 U/L (45-117) H 06/01/19 16:57 Creatine Kinase 152 U/L (26-192) 06/01/19 16:57 Creatine Kinase Index No Result Required. 06/01/19 16:57 CK-MB (CK-2) < 1.0 ng/mL (0.5-3.6) 06/01/19 16:57 Troponin I < 0.02 ng/ml (0.00-0.05) 06/01/19 16:57 Total Protein 8.1 g/dl (6.4-8.2) 06/01/19 16:57 Albumin 3.2 g/dl (3.4-5.0) L 06/01/19 16:57 Lipase 54 U/L (73-393) L 06/01/19 16:57 No leukocytosis. No anemia. No electrolyte abnormalities. No MICHAEL. Mild elevated AST. Troponin undetectable. Lipase wnl. Pt is pending CT abdomen/pelvis with PO and IV contrast and UA. 06/01/19 20:55 Urine Test Results Urine Color Yellow 06/01/19 20:10 Urine Appearance Cloudy 06/01/19 20:10 Urine pH 8.0 (5.0-8.0) 06/01/19 20:10 Ur Specific [place] 1.014 (1.010-1.035) 06/01/19 20:10 Urine Protein Negative (NEGATIVE) 06/01/19 20:10 Urine Glucose (UA) Negative (NEGATIVE) 06/01/19 20:10 Urine Ketones Negative (NEGATIVE) 06/01/19 20:10 Urine Blood Negative (NEGATIVE) 06/01/19 20:10 Urine Nitrite Positive (NEGATIVE) H 06/01/19 20:10 Urine Bilirubin Negative (NEGATIVE) 06/01/19 20:10 Ur Leukocyte Esterase 1+ (NEGATIVE) H 06/01/19 20:10 Positive for UTI. 06/01/19 22:04 CT report: TYPE/EXAM: RESULT: [id number] CT/ABDOMEN PELVIS CT WITH CONTR Abdomen and pelvis CT with contrast : Clinical information epigastric pain, nausea, diarrhea; history of gastric sleeve Multiplanar imaging was performed following the intravenous administration of nonionic contrast. Enteric contrast was also administered. There is dilatation of the partially imaged left atrium. No evidence of pneumoperitoneum, abscess, free intraperitoneal fluid or bowel obstruction. Large hiatal hernia. Perigastric surgical sutures are noted at the level of the herniated portion of the stomach as well as the upper gastric body. As on prior studies. The gallbladder is not visualized probably on the basis of cholecystectomy. Note is again made of mild extrahepatic and intrahepatic biliary tract dilatation without obvious interval change. No gross intraductal calculus is identified within the limitations of CT. Stable 1.3 cm left adrenal nodule very likely representing an adenoma on a statistical basis. 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 The liver, spleen, pancreas, right adrenal gland and kidneys demonstrate no discrete pathology. There is no aortic aneurysm. No definite lymphadenopathy is identified. A 2 mm nonobstructing left renal lower pole calculus noted on a renal stone CT study of 01/08/2018 cannot be appreciated on the current exam. As on prior studies the appendix is not definitely visualized however no indirect CT signs of acute appendicitis are seen. Colonic diverticulosis is noted without evidence of acute diverticulitis. There is no obvious acute colitis. Mild to moderate colitis may not be demonstrable on CT. No gross small bowel abnormality is identified. Multilevel lumbar degenerative disc and facet joint changes. Impression: No definite CT findings of acute pathology are noted. In comparison to a prior CT exam of 01/08/2018 there is no longer definite visualization of a 2 mm nonobstructing left renal calculus which may be due to obscuring contrast on the current exam versus interval passage. Correlate clinically. There is no CT evidence of current obstructive uropathy. The remainder of the exam appears unchanged. Cardiomegaly. Large hiatal hernia. Status post gastric surgery. Mild biliary tract dilatation is again noted. Clinical/laboratory correlation is suggested. Follow- up imaging as clinically indicated. The gallbladder is not visualized probably on a postsurgical basis. Correlate with medical/surgical history. Stable 1.3 cm left adrenal nodule very likely representing an adenoma. Reported By: Abimael Booker MD 06/01/19 2139 06/01/19 22:12 Pt informed of results and need for antibiotic treatment. She reported allergy to Penicillin, nausea. She was given the option to go home with Keflex and Zofran, she ultimately reported she does not feel comfortable taking Penicillin like medication at home, and would prefer to stay in the hospital. Pt has grown E. Coli and Klebsiella resistant to Bactrim. Medications ordered: Ceftriaxone 1g IV once PCP: Alcides Morris 06/01/19 22:42 Signout given to ZANA Wiseman, pt to be admitted under Dr. Polanco care. Discharge - Discharge Information Problems reviewed: Yes Clinical Impression/Diagnosis: Nausea & vomiting, Abdominal pain Condition: Stable Disposition: HOME - Admission Yes - Follow up/Referral - Patient Discharge Instructions - Post Discharge Activity
[2019-06-01 20:23] LABS: HYALINE CASTS 16 /lpf (0-8); URINE APPEARANCE CLOUDY; URINE BACTERIA >9000 /hpf (NEGATIVE); URINE BILIRUBIN NEGATIVE (NEGATIVE); URINE COLOR YELLOW; URINE GLUCOSE (UA) NEGATIVE (NEGATIVE); URINE KETONE NEGATIVE (NEGATIVE); URINE LEUK ESTERASE 1+ (NEGATIVE); URINE NITRITE POSITIVE (NEGATIVE); URINE PROTEIN NEGATIVE (NEGATIVE); URINE RBC 5 /hpf (0-4); URINE UROBILINOGEN 0.2 mg/dL (0.2-1.0); URINE WBC 60 /hpf (0-5)
[2019-06-01] MEDS ORDERED: CEFTRIAXONE 1 GM in DEXTROSE 5%-WATER - 100 ML IVPB ONE (22:11)
[2019-06-01] MEDS ORDERED: CEFTRIAXONE 1 GM/50 ML BAG ONE (22:24)
--- NOTE | 2019-06-01 22:59 | HP ---
Admitting History and Physical - Primary Care Physician PCP: Dr. Polanco - Admission Chief Complaint: Abd pain, vomiting and diarrhea History of Present Illness: 83 old female with PMhx of CVA, HTN, obesity, and gastric sleeve surgery (20 years ago) arrived to ED for epigastric pain that started 5 days ago. As per patient,pain is constant, 8/10, cramping like sensation, without radiation, worsens with food and drink intake, with the following concurrent symptoms: vomiting x5 and diarrhea. The patient also has suprapubic pain for the past 3 days. Patient denies fevers, chills, chest pain, SOB, leg pain/swelling. Endorses dysuria. History Source: Patient, Family Member Limitations to Obtaining History: No Limitations - Past Medical History [employer]: Yes: CVA, TIA Cardiovascular: Yes: HTN Gastrointestinal: Yes: GERD Psych: Yes: Depression Endocrine: Yes: Other (obesity) - Past Surgical History Past Surgical History: Yes: Appendectomy (, ventral hernia repair), Bariatric Surgery (gastric sleeve surgery (20 years ago per the patient)), Cholecystectomy , Hernia Repair (ventral) - Smoking History Smoking history: Never smoked Have you smoked in the past 12 months: No Aproximately how many cigarettes per day: 0 - Alcohol/Substance Use Hx Alcohol Use: No History of Substance Use: reports: None - Social History Usual Living Arrangement: Yes: With Child ADL: Family Assistance History of Recent Travel: No Home Medications - Allergies Allergies/Adverse Reactions: Allergies Allergy/AdvReac Type Severity Reaction Status Date / Time Penicillins AdvReac Severe Vomiting Verified 06/01/19 21:19 - Home Medications Home Medications: Ambulatory Orders Nebivolol [Bystolic -] 5 mg PO DAILY 05/11/16 Omeprazole 40 mg PO DAILY 05/13/16 Clopidogrel Bisulfate [Plavix] 75 mg PO DAILY 03/19/18 Gabapentin 300 mg PO TID 03/19/18 Sertraline HCl 100 mg PO DAILY 02/13/19 Acetaminophen [Mapap] 1,000 mg PO QID PRN 06/01/19 Buspirone HCl [Buspar -] 30 mg PO BID 06/01/19 Cyclosporine [Restasis] 1 each OP BID 06/01/19 Meclizine HCl [Antivert -] 25 mg PO BID PRN 06/01/19 Pregabalin [Lyrica] 100 mg PO TID 06/01/19 Family Medical History Family History: Denies Review of Systems - Review of Systems Constitutional: reports: Loss of Appetite Eyes: reports: No Symptoms HENT: reports: No Symptoms Neck: reports: No Symptoms Cardiovascular: reports: No Symptoms Respiratory: reports: No Symptoms Gastrointestinal: reports: Abdominal Pain, Nausea, Vomiting Genitourinary: reports: Burning, Dysuria Musculoskeletal: reports: Back Pain Integumentary: reports: No Symptoms Neurological: reports: No Symptoms Endocrine: reports: No Symptoms Hematology/Lymphatic: reports: No Symptoms Psychiatric: reports: No Symptoms Physical Examination Vital Signs: Vital Signs Temperature 98.3 F 06/01/19 21:20 Pulse Rate 70 06/01/19 21:20 Respiratory Rate 18 06/01/19 21:20 Blood Pressure 177/93 H 06/01/19 21:20 O2 Sat by Pulse Oximetry (%) 96 06/01/19 21:20 Constitutional: Yes: No Distress, Calm, Obese Eyes: Yes: Conjunctiva Clear, EOM Intact HENT: Yes: Atraumatic, Normocephalic Neck: Yes: Supple, Trachea Midline Cardiovascular: Yes: Regular Rate and Rhythm Respiratory: Yes: Regular, CTA Bilaterally Gastrointestinal: Yes: Normal Bowel Sounds, Soft Renal/: Yes: CVA Tenderness - Left, CVA Tenderness - Right Musculoskeletal: Yes: WNL Extremities: Yes: WNL Edema: No Peripheral Pulses WNL: Yes Neurological: Yes: Alert, Oriented Labs: CBC, BMP 06/01/19 16:57 06/01/19 16:57 Imaging - Results Chest X-ray: Report Reviewed (no acute infiltrate) Cat Scan: Report Reviewed (CT ABD Impression: No definite CT findings of acute pathology are noted. In comparison to a prior CT exam of 01/08/2018 there is no longer definite visualization of a 2 mm nonobstructing left renal calculus which may be due to obscuring contrast on the current exam versus interval passage. Correlate clinically. There is no CT evidence of current obstructive uropathy. The remainder of the exam appears unchanged. Cardiomegaly. Large hiatal hernia. Status post gastric surgery. Mild biliary tract dilatation is again noted. Clinical/laboratory correlation is suggested. Follow- up imaging as clinically indicated. The gallbladder is not visualized probably on a postsurgical basis. Correlate with medical/surgical history. Stable 1.3 cm left adrenal nodule very likely representing an adenoma.) EKG: Report Reviewed (NSR, no s/t changes) Problem List - Problems (1) UTI (urinary tract infection) Code(s): N39.0 - URINARY TRACT INFECTION, SITE NOT SPECIFIED (2) Nausea & vomiting Code(s): R11.2 - NAUSEA WITH VOMITING, UNSPECIFIED (3) GERD (gastroesophageal reflux disease) Code(s): K21.9 - GASTRO-ESOPHAGEAL REFLUX DISEASE WITHOUT ESOPHAGITIS (4) History of CVA (cerebrovascular accident) Code(s): Z86.73 - PRSNL HX OF TIA (TIA), AND CEREB INFRC W/O RESID DEFICITS (5) Depression Code(s): F32.9 - MAJOR DEPRESSIVE DISORDER, SINGLE EPISODE, UNSPECIFIED (6) CAD (coronary artery disease) Code(s): I25.10 - ATHSCL HEART DISEASE OF [place] CORONARY ARTERY W/O ANG PCTRS (7) Hypertension Code(s): I10 - ESSENTIAL (PRIMARY) HYPERTENSION (8) Abdominal pain Code(s): R10.9 - UNSPECIFIED ABDOMINAL PAIN (9) Neuropathic pain Code(s): M79.2 - NEURALGIA AND NEURITIS, UNSPECIFIED (10) Obesity Code(s): E66.9 - OBESITY, UNSPECIFIED (11) DVT prophylaxis Code(s): [id number] - Assessment/Plan 83 year old female with PMH HTN, CVA, obesity s/p gastric sleeve surgery presented to ED for epigastric burning pain associated with vomiting/diarrhea x5 days, also complains of dysuria and suprapubic discomfort. # UTI - UA + -No leukocytosis. -No electrolyte abnormalities. -Troponin undetectable. -CT ABD: no CT evidence of current obstructive uropathy. - given IV tylenol and Ceftriaxone 1g x1 - continue with IV ceftriaxone 1 g daily - follow up ID in AM - follow up urine culture, adjust abx based on sensitivity - follow up cbc, bmp # Nausea/ Voimting # GERD - given ondansetron 4mg + Famotidine 20 mg IV with relief - S/P 1 L NS - continue with Pepcid 20 mg daily - zofran 8 mg q 8 hours PRN #HTN/CAD #H/o of CVA -Nebivolol 5 mg PO DAILY -Clopidogrel Bisulfate 75 mg PO DAILY # Neuropathy pain - continue with lyrica - continue with gabapentin # Depression - Sertraline HCl 100 mg PO DAILY - continue with Buspar # Obesity s/p gastric sleeve - healthy eating habits - exercise VTE: Heparin SQ Cardiac diet, regular consistency Inpatient Med-surg Visit type - Emergency Visit Emergency Visit: Yes ED Registration Date: 06/01/19 Care time: The patient presented to the Emergency Department on the above date and was hospitalized for further evaluation of their emergent condition. - New Patient This patient is new to me today: Yes Date on this admission: 06/02/19 - Critical Care Critical Care patient: No
[2019-06-01] MEDS ORDERED: ACETAMINOPHEN 500 MG TABLET (FP) PO PRN (23:24)
[2019-06-01] MEDS ORDERED: ONDANSETRON 8 MG TABLET (FP) PO PRN (23:27)
[2019-06-02] MEDS ORDERED: PREGABALIN 100 MG CAPSULE ONE (06:03)
[2019-06-02] MEDS ORDERED: GABAPENTIN 100 MG CAPSULE (FP) ONE (06:04)
[2019-06-02] MEDS: PREGABALIN 100 MG CAPSULE PO SCH ×2 (06:06→14:34)
[2019-06-02] MEDS: GABAPENTIN 300 MG CAPSULE (FP) PO SCH ×3 (06:06→21:33)
[2019-06-02 07:07] LABS: HEMATOCRIT 35.3 % (32.4-45.2); HEMOGLOBIN 11.6 GM/dL (10.7-15.3); MCH 23.8 pg (25.7-33.7); MCHC 32.9 g/dl (32.0-36.0); MEAN CELL VOLUME 72.3 fl (80-96); MEAN PLT VOLUME 7.6 fl (7.5-11.1); PLATELET COUNT 306 K/MM3 (134-434); RBC 4.89 M/mm3 (3.60-5.2); WHITE BLOOD COUNT 9.6 K/mm3 (4.0-10.0)
[2019-06-02 07:31] LABS: BLOOD UREA NITROGEN 11.7 mg/dL (7-18); CALCIUM 9.1 mg/dL (8.5-10.1); POTASSIUM 4.1 mmol/L (3.5-5.1)
--- NOTE | 2019-06-02 09:25 | EKG ---
Test Reason : Blood Pressure : / mmHG Vent. Rate : 060 BPM Atrial Rate : 060 BPM P-R Int : 146 ms QRS Dur : 072 ms QT Int : 454 ms P-R-T Axes : -05 -07 007 degrees QTc Int : 454 ms NORMAL SINUS RHYTHM NORMAL ECG WHEN COMPARED WITH ECG OF 19-MAR-2018 20:48, NO SIGNIFICANT CHANGE WAS FOUND Confirmed by MD Diaz Edward ([id number]) on 06/02/2019 9:25:33 AM Referred By: Confirmed By:Pedro Diaz MD
[2019-06-02] MEDS ORDERED: FAMOTIDINE 20 MG TABLET PO SCH (10:00)
[2019-06-02] MEDS ORDERED: CEFTRIAXONE 1 GM/50 ML BAG ONE (10:26)
[2019-06-02] MEDS: CLOPIDOGREL BISULFATE 75 MG TABLET (FP) PO SCH (10:30)
[2019-06-02] MEDS: busPIRone HCL 10 MG TABLET (FP) PO SCH ×2 (10:30→22:46)
[2019-06-02] MEDS: CEFTRIAXONE 1 GM in DEXTROSE 5%-WATER - 50 ML IVPB SCH (10:30)
[2019-06-02] MEDS: SERTRALINE HCL 50 MG TABLET (FP) PO SCH (10:30)
[2019-06-02] MEDS: HEPARIN NA (PORCINE) 5,000 UNITS/ML 1ML VIAL SQ SCH ×2 (10:30→21:33)
[2019-06-02] MEDS: NEBIVOLOL 5 MG TABLET (FP) PO SCH (10:30)
[2019-06-02 13:32] VITALS: BMI 41.1
--- NOTE | 2019-06-02 13:48 | PN ---
Progress Note, Physician Chief Complaint: Abdominal Pain UTI History of Present Illness: Previous notes and events reviewed awake and alert NAD complain of dysuria, denies hematuria complain of epigastric pain - Current Medication List Current Medications: Active Medications Acetaminophen (Tylenol -) 1,000 mg PO Q6H PRN PRN Reason: PAIN LEVEL 1-5 Buspirone HCl (Buspar -) 30 mg PO BID [facility] Last Admin: 06/02/19 10:30 Dose: 30 mg Clopidogrel Bisulfate (Plavix -) 75 mg PO DAILY [facility] Last Admin: 06/02/19 10:30 Dose: 75 mg Famotidine (Pepcid -) 20 mg PO DAILY [facility] Last Admin: 06/02/19 10:30 Dose: 20 mg Gabapentin (Neurontin -) 300 mg PO TID [facility] Last Admin: 06/02/19 06:06 Dose: 300 mg Heparin Sodium (Porcine) (Heparin -) 5,000 unit SQ BID [facility] Last Admin: 06/02/19 10:30 Dose: 5,000 unit Ceftriaxone Sodium 1 gm/ (Dextrose) 50 mls @ 100 mls/hr IVPB DAILY [facility]; Protocol Last Admin: 06/02/19 10:30 Dose: 100 mls/hr Nebivolol (Bystolic -) 5 mg PO DAILY [facility] Last Admin: 06/02/19 10:30 Dose: 5 mg Ondansetron HCl (Zofran -) 8 mg PO Q8H PRN PRN Reason: NAUSEA AND/OR VOMITING Pregabalin (Lyrica -) 100 mg PO TID [facility] Last Admin: 06/02/19 06:06 Dose: 100 mg Sertraline HCl (Zoloft -) 100 mg PO DAILY [facility] Last Admin: 06/02/19 10:30 Dose: 100 mg - Objective Vital Signs: Vital Signs Temperature 97.7 F 06/02/19 13:15 Pulse Rate 74 06/02/19 13:15 Respiratory Rate 20 06/02/19 13:15 Blood Pressure 115/94 06/02/19 13:15 O2 Sat by Pulse Oximetry (%) 94 L 06/02/19 12:41 Constitutional: Yes: No Distress, Calm, Obese Eyes: Yes: Conjunctiva Clear HENT: Yes: Atraumatic Cardiovascular: Yes: Regular Rate and Rhythm Respiratory: Yes: Regular, CTA Bilaterally Gastrointestinal: Yes: Normal Bowel Sounds, Soft, Abdomen, Obese, Hernia, Tenderness, Epigastrium Musculoskeletal: Yes: Muscle Weakness Extremities: Yes: WNL Edema: No Neurological: Yes: Alert, Oriented Psychiatric: Yes: Alert, Oriented Labs: CBC, BMP 06/02/19 05:50 06/02/19 05:50 - ....Imaging Cat Scan: Report Reviewed Problem List - Problems (1) Abdominal pain Assessment/Plan: -GI consult -Pantoprazole -Zofran prn for vomiting/nausea -CTAP shows no definite CT findings of acute pathology identified, large hiatal hernia, mild biliary tract dilatation, stable 1.3cm left adrenal nodule Code(s): R10.9 - UNSPECIFIED ABDOMINAL PAIN (2) CAD (coronary artery disease) Assessment/Plan: -Plavix Code(s): I25.10 - ATHSCL HEART DISEASE OF [place] CORONARY ARTERY W/O ANG PCTRS (3) GERD (gastroesophageal reflux disease) Assessment/Plan: -Pantoprazole Code(s): K21.9 - GASTRO-ESOPHAGEAL REFLUX DISEASE WITHOUT ESOPHAGITIS (4) History of CVA (cerebrovascular accident) Assessment/Plan: -Plavix -PT -Fall Risk Precaution Code(s): Z86.73 - PRSNL HX OF TIA (TIA), AND CEREB INFRC W/O RESID DEFICITS (5) UTI (urinary tract infection) Assessment/Plan: -ID on board -no leukocytosis -afebrile -Ceftriaxone -UA shows positive nitrite, 1+ Leuks Code(s): N39.0 - URINARY TRACT INFECTION, SITE NOT SPECIFIED (6) Hypertension Assessment/Plan: -low Na diet -Bystolic Code(s): I10 - ESSENTIAL (PRIMARY) HYPERTENSION (7) Depression Assessment/Plan: -Buspar, Zoloft Code(s): F32.9 - MAJOR DEPRESSIVE DISORDER, SINGLE EPISODE, UNSPECIFIED (8) Neuropathic pain Assessment/Plan: -Gabapentin Code(s): M79.2 - NEURALGIA AND NEURITIS, UNSPECIFIED Assessment/Plan see problem list dvt ppx
[2019-06-02] MEDS: PREGABALIN 50 MG CAPSULE PO SCH ×2 (14:31→21:32)
--- NOTE | 2019-06-02 16:36 | CON.ID ---
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 Cardio/Vascular: Yes: HTN Gastrointestinal: Yes: GERD Psych: Yes: Depression Endocrine: Yes: Other (obesity) - Past Surgical History Past Surgical History: Yes: Appendectomy (, ventral hernia repair), Bariatric Surgery (gastric sleeve surgery (20 years ago per the patient)), Cholecystectomy , Hernia Repair (ventral) - Alcohol/Substance Use Hx Alcohol Use: No History of Substance Use: reports: None - Smoking History Smoking history: Never smoked Have you smoked in the past 12 months: No Aproximately how many cigarettes per day: 0 - Social History ADL: Family Assistance History of Recent Travel: No Home Medications - Allergies Allergies/Adverse Reactions: Allergies Allergy/AdvReac Type Severity Reaction Status Date / Time Penicillins AdvReac Severe Vomiting Verified 06/01/19 21:19 - Home Medications Home Medications: Ambulatory Orders Nebivolol [Bystolic -] 5 mg PO DAILY 05/11/16 Omeprazole 40 mg PO DAILY 05/13/16 Clopidogrel Bisulfate [Plavix] 75 mg PO DAILY 03/19/18 Gabapentin 300 mg PO TID 03/19/18 Sertraline HCl 100 mg PO DAILY 02/13/19 Acetaminophen [Mapap] 1,000 mg PO QID PRN 06/01/19 Buspirone HCl [Buspar -] 30 mg PO BID 06/01/19 Cyclosporine [Restasis] 1 each OP BID 06/01/19 Meclizine HCl [Antivert -] 25 mg PO BID PRN 06/01/19 Pregabalin [Lyrica] 100 mg PO TID 06/01/19 Physical Exam Vital Signs: Vital Signs Temperature 97.7 F 06/02/19 13:15 Pulse Rate 74 06/02/19 13:15 Respiratory Rate 20 06/02/19 13:15 Blood Pressure 115/94 06/02/19 13:15 O2 Sat by Pulse Oximetry (%) 94 L 06/02/19 12:41 Labs: CBC, BMP 06/02/19 05:50 06/02/19 05:50
--- NOTE | 2019-06-02 16:40 | PN ---
Progress Note (short form) - Note Progress Note: Called to evaluate patient. 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 I spoke with Dr. Gutierrez. he will be seeing the patient.
[2019-06-03 05:42] VITALS: PULSE 58; TEMP 97.8
[2019-06-03] MEDS: PREGABALIN 50 MG CAPSULE PO SCH ×2 (05:57→13:14)
[2019-06-03] MEDS: GABAPENTIN 300 MG CAPSULE (FP) PO SCH ×2 (05:57→13:14)
--- NOTE | 2019-06-03 08:48 | CON.GI ---
Consult Consult Specialty:: GI Referred by:: Socorro Giraldo NP Reason for Consultation:: Epigastric Pain - History of Present Illness History of Present Illness: Patient is an 83 y/o female with past medical history of CVA, HTN, and gastric sleeve surgery 20 yrs ago. Consult was placed for epiagstric pain. Patient states having epigastric pain that radiates to RLQ which developed 8 days ago. Epigastric pain was not accompanied with nausea, vomiting, diarrhea, or constipation. She states having abnormal weight loss of 4lb in 15days. Abdominal CT scan shows no definite CT findings of acute pathology identified, large hiatal hernia, mild biliary tract dilatation, stable 1.3cm left adrenal nodule. Currently on exam patient denies having abdominal pain. 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 Cardio/Vascular: Yes: HTN Gastrointestinal: Yes: GERD Psych: Yes: Depression Endocrine: Yes: Other (obesity) - Past Surgical History Past Surgical History: Yes: Appendectomy (, ventral hernia repair), Bariatric Surgery (gastric sleeve surgery (20 years ago per the patient)), Cholecystectomy , Hernia Repair (ventral) - Alcohol/Substance Use Hx Alcohol Use: No History of Substance Use: reports: None - Smoking History Smoking history: Never smoked Have you smoked in the past 12 months: No Aproximately how many cigarettes per day: 0 - Social History ADL: Family Assistance History of Recent Travel: No Home Medications - Allergies Allergies/Adverse Reactions: Allergies Allergy/AdvReac Type Severity Reaction Status Date / Time Penicillins AdvReac Severe Vomiting Verified 06/01/19 21:19 - Home Medications Home Medications: Ambulatory Orders Nebivolol [Bystolic -] 5 mg PO DAILY 05/11/16 Omeprazole 40 mg PO DAILY 05/13/16 Clopidogrel Bisulfate [Plavix] 75 mg PO DAILY 03/19/18 Gabapentin 300 mg PO TID 03/19/18 Sertraline HCl 100 mg PO DAILY 02/13/19 Acetaminophen [Mapap] 1,000 mg PO QID PRN 06/01/19 Buspirone HCl [Buspar -] 30 mg PO BID 06/01/19 Cyclosporine [Restasis] 1 each OP BID 06/01/19 Meclizine HCl [Antivert -] 25 mg PO BID PRN 06/01/19 Pregabalin [Lyrica] 100 mg PO TID 06/01/19 Review of Systems - Review of Systems Constitutional: reports: No Symptoms Eyes: reports: No Symptoms HENT: reports: No Symptoms Neck: reports: No Symptoms Cardiovascular: reports: No Symptoms Respiratory: reports: No Symptoms Gastrointestinal: reports: Abdominal Pain Genitourinary: reports: No Symptoms Breasts: reports: No Symptoms Reported Musculoskeletal: reports: No Symptoms Integumentary: reports: No Symptoms Neurological: reports: No Symptoms Endocrine: reports: No Symptoms Hematology/Lymphatic: reports: No Symptoms Psychiatric: reports: No Symptoms Physical Exam-GI Vital Signs: Vital Signs Temperature 97.8 F 06/03/19 05:40 Pulse Rate 58 L 06/03/19 05:40 Respiratory Rate 20 06/03/19 05:40 Blood Pressure 151/75 06/03/19 05:40 O2 Sat by Pulse Oximetry (%) 95 06/02/19 21:00 Constitutional: Yes: No Distress Eyes: Yes: Conjunctiva Clear HENT: Yes: Atraumatic Cardiovascular: Yes: Regular Rate and Rhythm Respiratory: Yes: Regular, CTA Bilaterally Gastrointestinal Inspection: Yes: Scars. No: WNL, Ascites, Distention, Hernia, Other ...Auscultate: Yes: Normoactive Bowel Sounds. No: Hyperactive Bowel Sounds, Hypoactive Bowel Sounds, No Bowel Sounds, Other ...Palpate: Yes: Soft. No: Firm/Rigid, Guarding, Hepatomegaly, Mass, Pulsatile Mass, Splenomegaly, Tenderness, Tenderness, Epigastium, Tenderness, Rebound, Other ...Percussion: Yes: Tympanitic. No: Dullness, Fluid Wave, Other Neurological: Yes: Alert Psychiatric: Yes: Alert Labs: CBC, BMP 06/02/19 05:50 06/02/19 05:50 Active Medications Acetaminophen (Tylenol -) 1,000 mg PO Q6H PRN PRN Reason: PAIN LEVEL 1-5 Buspirone HCl (Buspar -) 30 mg PO BID [facility] Last Admin: 06/02/19 22:46 Dose: 30 mg Clopidogrel Bisulfate (Plavix -) 75 mg PO DAILY [facility] Last Admin: 06/02/19 10:30 Dose: 75 mg Gabapentin (Neurontin -) 300 mg PO TID [facility] Last Admin: 06/03/19 05:57 Dose: 300 mg Heparin Sodium (Porcine) (Heparin -) 5,000 unit SQ BID [facility] Last Admin: 06/02/19 21:33 Dose: 5,000 unit Ceftriaxone Sodium 1 gm/ (Dextrose) 50 mls @ 100 mls/hr IVPB DAILY [facility]; Protocol Last Admin: 06/02/19 10:30 Dose: 100 mls/hr Nebivolol (Bystolic -) 5 mg PO DAILY [facility] Last Admin: 06/02/19 10:30 Dose: 5 mg Ondansetron HCl (Zofran -) 8 mg PO Q8H PRN PRN Reason: NAUSEA AND/OR VOMITING Pantoprazole Sodium (Protonix -) 40 mg PO DAILY [facility] Pregabalin (Lyrica -) 100 mg PO TID [facility] Last Admin: 06/03/19 05:57 Dose: 100 mg Sertraline HCl (Zoloft -) 100 mg PO DAILY [facility] Last Admin: 06/02/19 10:30 Dose: 100 mg Problem List - Problems (1) Abdominal pain Assessment/Plan: >Pantoprazole daily >Upper GI series >CEA, CA 19-9, CA 125 Code(s): R10.9 - UNSPECIFIED ABDOMINAL PAIN
[2019-06-03] MEDS ORDERED: PANTOPRAZOLE 40 MG TABLET (FP) PO SCH (10:00)
[2019-06-03] MEDS ORDERED: DEXTROSE 5%-WATER - 50 ML IVPB ONE (10:05)
[2019-06-03] MEDS ORDERED: cefTRIAXone SODIUM 1 GM VIAL ONE (10:05)
[2019-06-03] MEDS ORDERED: PT OWN MED DRAWER 7, Y5N ONE (10:05)
[2019-06-03] MEDS: CEFTRIAXONE 1 GM in DEXTROSE 5%-WATER - 50 ML IVPB SCH (10:10)
[2019-06-03] MEDS: CLOPIDOGREL BISULFATE 75 MG TABLET (FP) PO SCH (10:17)
[2019-06-03] MEDS: HEPARIN NA (PORCINE) 5,000 UNITS/ML 1ML VIAL SQ SCH (10:17)
[2019-06-03] MEDS: NEBIVOLOL 5 MG TABLET (FP) PO SCH (10:17)
[2019-06-03] MEDS: SERTRALINE HCL 50 MG TABLET (FP) PO SCH (10:17)
[2019-06-03] MEDS: busPIRone HCL 10 MG TABLET (FP) PO SCH (10:17)
[2019-06-03 11:32] VITALS: BP 139/61
--- NOTE | 2019-06-03 11:34 | PN ---
Progress Note, Physician Chief Complaint: Abdominal pain UTI History of Present Illness: MENDY SCHERER Wants to go home, has a flight to catch in AM to go see her sister who is sick. Denies any abd pain or dysuria at this time. - Current Medication List Current Medications: Active Medications Acetaminophen (Tylenol -) 1,000 mg PO Q6H PRN PRN Reason: PAIN LEVEL 1-5 Buspirone HCl (Buspar -) 30 mg PO BID [facility] Last Admin: 06/03/19 10:17 Dose: 30 mg Clopidogrel Bisulfate (Plavix -) 75 mg PO DAILY [facility] Last Admin: 06/03/19 10:17 Dose: 75 mg Gabapentin (Neurontin -) 300 mg PO TID [facility] Last Admin: 06/03/19 05:57 Dose: 300 mg Heparin Sodium (Porcine) (Heparin -) 5,000 unit SQ BID [facility] Last Admin: 06/03/19 10:17 Dose: 5,000 unit Ceftriaxone Sodium 1 gm/ (Dextrose) 50 mls @ 100 mls/hr IVPB DAILY [facility]; Protocol Last Admin: 06/03/19 10:10 Dose: 100 mls/hr Nebivolol (Bystolic -) 5 mg PO DAILY [facility] Last Admin: 06/03/19 10:17 Dose: 5 mg Ondansetron HCl (Zofran -) 8 mg PO Q8H PRN PRN Reason: NAUSEA AND/OR VOMITING Pantoprazole Sodium (Protonix -) 40 mg PO DAILY [facility] Last Admin: 06/03/19 10:17 Dose: 40 mg Pregabalin (Lyrica -) 100 mg PO TID [facility] Last Admin: 06/03/19 05:57 Dose: 100 mg Sertraline HCl (Zoloft -) 100 mg PO DAILY [facility] Last Admin: 06/03/19 10:17 Dose: 100 mg - Objective Vital Signs: Vital Signs Temperature 97.8 F 06/03/19 05:40 Pulse Rate 58 L 06/03/19 05:40 Respiratory Rate 18 06/03/19 09:00 Blood Pressure 139/61 06/03/19 09:00 O2 Sat by Pulse Oximetry (%) 96 06/03/19 09:00 Constitutional: Yes: Well Nourished, No Distress, Calm, Obese Cardiovascular: Yes: Regular Rate and Rhythm Respiratory: Yes: Regular Gastrointestinal: Yes: WNL, Normal Bowel Sounds, Soft, Abdomen, Obese Genitourinary: Yes: WNL Musculoskeletal: Yes: WNL Extremities: Yes: WNL Edema: No Peripheral Pulses WNL: Yes Neurological: Yes: Alert, Oriented Psychiatric: Yes: Alert, Oriented Labs: CBC, BMP 06/02/19 05:50 06/02/19 05:50 Assessment/Plan (1) Abdominal pain Assessment/Plan: -GI consult -Pantoprazole -Zofran prn for vomiting/nausea -CTAP shows no definite CT findings of acute pathology identified, large hiatal hernia, mild biliary tract dilatation, stable 1.3cm left adrenal nodule -MRI abdomen pending-f/u o/p with GI Code(s): R10.9 - UNSPECIFIED ABDOMINAL PAIN (2) CAD (coronary artery disease) Assessment/Plan: -Plavix Code(s): I25.10 - ATHSCL HEART DISEASE OF [place] CORONARY ARTERY W/O ANG PCTRS (3) GERD (gastroesophageal reflux disease) Assessment/Plan: -Pantoprazole Code(s): K21.9 - GASTRO-ESOPHAGEAL REFLUX DISEASE WITHOUT ESOPHAGITIS (4) History of CVA (cerebrovascular accident) Assessment/Plan: -Plavix -PT -Fall Risk Precaution Code(s): Z86.73 - PRSNL HX OF TIA (TIA), AND CEREB INFRC W/O RESID DEFICITS (5) UTI (urinary tract infection) Assessment/Plan: -ID on board -no leukocytosis -afebrile -Ceftriaxone---change to ceftin 500 mg po x 7 days -UA shows positive nitrite, 1+ Leuks Code(s): N39.0 - URINARY TRACT INFECTION, SITE NOT SPECIFIED (6) Hypertension Assessment/Plan: -low Na diet -Bystolic Code(s): I10 - ESSENTIAL (PRIMARY) HYPERTENSION (7) Depression Assessment/Plan: -Buspar, Zoloft Code(s): F32.9 - MAJOR DEPRESSIVE DISORDER, SINGLE EPISODE, UNSPECIFIED (8) Neuropathic pain Assessment/Plan: -Gabapentin Code(s): M79.2 - NEURALGIA AND NEURITIS, UNSPECIFIED
[2019-06-04 08:11] LABS: CARCINOEMBRYONIC ANTIGEN 1.3 ng/mL (0.0-4.7)
== END 2019-06-03 15:43 | disposition home or self-care (01) | DRG 690 ==
LOC: JER 15:02 → JERBED 22:43 → J6S 06-02 12:58
PROVIDERS: ADMIT Internal Medicine; ATTEND Family Medicine
DX: N39.0 Urinary tract infection, site not specified (principal); Z68.41 Body mass index [BMI] 40.0-44.9, adult; E66.9 Obesity, unspecified; D35.00 Benign neoplasm of unspecified adrenal gland; I51.7 Cardiomegaly; I10 Essential (primary) hypertension; I25.10 Atherosclerotic heart disease of native coronary artery without angina pectoris; K21.9 Gastro-esophageal reflux disease without esophagitis; F32.9 Major depressive disorder, single episode, unspecified; M79.2 Neuralgia and neuritis, unspecified
CPT/HCPCS: 36415; 71045-TC-FY; 74177-TC; 80048; 80053; 81003; 82378; 82550; 82553; 83690; 84484; 85025; 85027; 86301; 86304; 87086; 87186; 93005; 93010; 99285-25; J0131; J1644; Q9967

== ENCOUNTER 2019-08-15 10:19 | Inpatient (IN) | payer OTHER ==
--- NOTE | 2019-08-15 11:12 | PDOC ---
History of Present Illness - General Chief Complaint: Pain Stated Complaint: ABDOMINAL PAIN History Source: Patient Exam Limitations: No Limitations - History of Present Illness Initial Comments: 08/15/19 11:07 83 yo F here with htn, cva, obesity h/o mult abd surgeries ( appy, amy, gastric sleeve 20 yrs ago, abdominoplasty), c/o n/v since yesterday, dysuria, urgency and frequency. all nonbloody nonbilious. stool lasat 2 days ago.normal. pt denies fever. does have dysuria, urgency and flank pain. pain in abd is described as epigastric and suprapubic, constant, but much worse this am. no mod factors. no radiation. no cp no sob. no leg swelling. no rash. was on cefuroxime for uti 2 mo ago, no allergic reaction. no current antiobiotics. recent travel to [place]. no rash. no fever Past History - Past Medical History Allergies/Adverse Reactions: Allergies Allergy/AdvReac Type Severity Reaction Status Date / Time Penicillins AdvReac Severe Vomiting Verified 06/01/19 21:19 Home Medications: Ambulatory Orders Nebivolol [Bystolic -] 5 mg PO DAILY 05/11/16 Omeprazole 40 mg PO DAILY 05/13/16 Clopidogrel Bisulfate [Plavix] 75 mg PO DAILY 03/19/18 Gabapentin 300 mg PO TID 03/19/18 Sertraline HCl 100 mg PO DAILY 02/13/19 Acetaminophen [Mapap] 1,000 mg PO QID PRN 06/01/19 Buspirone HCl [Buspar -] 30 mg PO BID 06/01/19 Cyclosporine [Restasis] 1 each OP BID 06/01/19 Meclizine HCl [Antivert -] 25 mg PO BID PRN 06/01/19 Pregabalin [Lyrica] 100 mg PO TID 06/01/19 Cefuroxime Axetil [Ceftin -] 500 mg PO Q12H #14 tablet 06/03/19 Anemia: No Asthma: No Cancer: No Cardiac Disorders: No CVA: Yes ("MINI-STROKE" 1 YR AGO) COPD: No CHF: No Dementia: No Diabetes: No GI Disorders: No Disorders: No HTN: Yes Hypercholesterolemia: No Liver Disease: No Psychiatric Problems: Yes Seizures: Yes (due to panic attack) Thyroid Disease: No - Surgical History Abdominal Surgery: Yes ("reconstruction") Appendectomy: No Cardiac Surgery: No Cholecystectomy: Yes Lung Surgery: No Neurologic Surgery: No Orthopedic Surgery: Yes (LT KNEE REPLACEMENT) - Immunization History Immunization Up to Date: Yes - Psycho Social/Smoking Cessation Hx Smoking Status: No Smoking History: Unknown if ever smoked Have you smoked in the past 12 months: No Number of Cigarettes Smoked Daily: 0 Hx Alcohol Use: No Drug/Substance Use Hx: No Substance Use Type: None Hx Substance Use Treatment: No Review of Systems - Review of Systems Constitutional: Yes: Fever. No: Chills, Diaphoresis HEENTM: No: Eye Pain, Blurred Vision Respiratory: No: Cough, Orthopnea, Shortness of Breath ABD/GI: Yes: Nausea, Vomiting. No: Constipated, Diarrhea : Yes: Burning, Dysuria, Flank Pain. No: Discharge Musculoskeletal: No: Back Pain All Other Systems: Reviewed and Negative *Physical Exam - Vital Signs Last Vital Signs Temp Pulse Resp BP Pulse Ox 97.7 F 70 18 181/80 H 95 08/15/19 10:30 08/15/19 10:30 08/15/19 10:30 08/15/19 10:30 08/15/19 10:30 - Physical Exam 08/15/19 11:10 awake alert lungs clear bilat heart rrr no mrg . abb soft obese. epigastric ttp. suprapubic ttp. no rebound no guarding. bilat cva tenderness. skin warm and dry. no rash moves all four ext. speech. clear. ED Treatment Course - LABORATORY CBC & Chemistry Diagram: 08/15/19 11:26 08/15/19 11:23 Medical Decision Making - Medical Decision Making 08/15/19 11:11 83 yo F here wtih n/v mult abd surgeries ( appendectomy, cholecystomy, abdominoplasty) and urinary sxs. differential uti dka dehydration,bowel obstruction, pyelo, hypokalemia, plan ct a/p labs ivf, antiemetics. pain control. 08/15/19 11:12 08/15/19 14:[address] a/p with punctate lung nodules. otherwise unremarkable. possible bronchilitis clinically correlate. uti on labs notd. due to inractable vomiting , will admit pt. Discharge - Discharge Information Problems reviewed: Yes Clinical Impression/Diagnosis: UTI (urinary tract infection), Vomiting Condition: Improved - Admission Yes - Follow up/Referral Referrals: Yosvany Morris MD [Primary Care Provider] - - Patient Discharge Instructions - Post Discharge Activity
[2019-08-15 11:44] LABS: BASO % 0.8 % (0-2.0); EOS % 1.7 % (0-4.5); EPI CELLS 2.8 /HPF (0-5/HPF); HEMATOCRIT 36.8 % (32.4-45.2); HEMOGLOBIN 12.5 GM/dL (10.7-15.3); HYALINE CASTS 36 /lpf (0-8); LYMPH % 21.1 % (8-40); MCH 24.1 pg (25.7-33.7); MCHC 33.9 g/dl (32.0-36.0); MONO % 8.8 % (3.8-10.2); NEUT % 67.6 % (42.8-82.8); PH,URINE >= 9.0 (5.0-8.0); PLATELET COUNT 298 K/MM3 (134-434); RBC 5.19 M/mm3 (3.60-5.2); RDW 18.6 % (11.6-15.6); URINE APPEARANCE CLOUDY; URINE BACTERIA 8040.9 /hpf (NEGATIVE); URINE BILIRUBIN NEGATIVE (NEGATIVE); URINE COLOR YELLOW; URINE GLUCOSE (UA) NEGATIVE (NEGATIVE); URINE KETONE NEGATIVE (NEGATIVE); URINE LEUK ESTERASE 1+ (NEGATIVE); URINE NITRITE NEGATIVE (NEGATIVE); URINE PROTEIN NEGATIVE (NEGATIVE); URINE RBC 2 /hpf (0-4); URINE WBC 59 /hpf (0-5); WHITE BLOOD COUNT 8.9 K/mm3 (4.0-10.0)
[2019-08-15 12:23] LABS: ALBUMIN 3.3 g/dl (3.4-5.0); BILIRUBIN,TOTAL 0.5 mg/dL (0.2-1); BLOOD UREA NITROGEN 11.8 mg/dL (7-18); CALCIUM 9.6 mg/dL (8.5-10.1); CREATININE 0.8 mg/dL (0.55-1.3); POTASSIUM 4.4 mmol/L (3.5-5.1); TOT PROT 8.6 g/dl (6.4-8.2)
[2019-08-15] MEDS ORDERED: CEFTRIAXONE 1,000 MG in DEXTROSE 5%-WATER - 50 ML IVPB ONE (12:24)
[2019-08-15] MEDS ORDERED: ONDANSETRON 4 MG/2 ML VIAL IVPUSH ONE (12:26)
[2019-08-15] MEDS ORDERED: SODIUM CHLORIDE 0.9% 1000 ML INFUS.BAG IV ONE (12:26)
[2019-08-15] MEDS ORDERED: ACETAMINOPHEN 1000 MG/100 ML VIAL (NON FORMULARY) IVPB ONE (12:26)
[2019-08-15] MEDS ORDERED: ACETAMINOPHEN INJECTION 100 ML IVPB ONE (12:34)
[2019-08-15] MEDS ORDERED: CEFTRIAXONE 1 GM/50 ML BAG ONE ×2 (12:34→12:43)
[2019-08-15] MEDS ORDERED: ONDANSETRON 4 MG/2 ML VIAL ONE (12:34)
[2019-08-15] MEDS ORDERED: MECLIZINE HCL 25 MG TABLET (FP) PO PRN (17:19)
[2019-08-15 21:37] VITALS: BMI 40.6
[2019-08-15] MEDS: HEPARIN NA (PORCINE) 5,000 UNITS/ML 1ML VIAL SQ SCH (22:54)
[2019-08-15] MEDS: D5-1/2NS+20 MEQ KCL - 20 MEQ/1,000 ML INFUS.BAG IV SCH (22:54)
[2019-08-15] MEDS: NEBIVOLOL 5 MG TABLET (FP) PO SCH (23:19)
[2019-08-15] MEDS: busPIRone HCL 10 MG TABLET (FP) PO SCH (23:19)
[2019-08-16] MEDS ORDERED: PT OWN MED DRAWER 7, Y5N ONE ×2 (04:12→09:36)
[2019-08-16] MEDS ORDERED: DEXTROSE 5%-WATER - 50 ML IVPB ONE (09:36)
[2019-08-16] MEDS ORDERED: cefTRIAXone SODIUM 1 GM VIAL ONE (09:36)
[2019-08-16] MEDS: NEBIVOLOL 5 MG TABLET (FP) PO SCH (09:46)
[2019-08-16] MEDS: SERTRALINE HCL 50 MG TABLET (FP) PO SCH (09:46)
[2019-08-16] MEDS: busPIRone HCL 10 MG TABLET (FP) PO SCH ×2 (09:46→21:21)
[2019-08-16] MEDS: PANTOPRAZOLE 40 MG TABLET PO SCH (09:46)
[2019-08-16] MEDS: CLOPIDOGREL BISULFATE 75 MG TABLET (FP) PO SCH (09:46)
[2019-08-16] MEDS: HEPARIN NA (PORCINE) 5,000 UNITS/ML 1ML VIAL SQ SCH ×2 (09:46→21:21)
[2019-08-16] MEDS: CEFTRIAXONE 1 GM in DEXTROSE 5%-WATER - 50 ML IVPB SCH (09:47)
[2019-08-16 10:09] LABS: BASO % 0.7 % (0-2.0); EOS % 3.6 % (0-4.5); HEMATOCRIT 33.7 % (32.4-45.2); HEMOGLOBIN 11.3 GM/dL (10.7-15.3); MCHC 33.5 g/dl (32.0-36.0); MEAN CELL VOLUME 71.7 fl (80-96); MEAN PLT VOLUME 8.1 fl (7.5-11.1); MONO % 8.9 % (3.8-10.2); NEUT % 67.8 % (42.8-82.8); PLATELET COUNT 246 K/MM3 (134-434); RBC 4.71 M/mm3 (3.60-5.2); RDW 18.8 % (11.6-15.6); WHITE BLOOD COUNT 7.4 K/mm3 (4.0-10.0)
--- NOTE | 2019-08-16 10:39 | HP ---
Admitting History and Physical - Admission History of Present Illness: 83 yo F here with htn, cva, obesity h/o mult abd surgeries ( appy, amy, gastric sleeve 20 yrs ago, abdominoplasty), c/o n/v since yesterday, dysuria, urgency and frequency. all nonbloody nonbilious. stool lasat 2 days ago.normal. pt denies fever. does have dysuria, urgency and flank pain. pain in abd is described as epigastric and suprapubic, constant, but much worse this am. no mod factors. no radiation. no cp no sob. no leg swelling. no rash. was on cefuroxime for uti 2 mo ago, no allergic reaction. no current antiobiotics. recent travel to [place] [employer]. no rash. 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 Cardiovascular: Yes: HTN Gastrointestinal: Yes: GERD Psych: Yes: Depression Endocrine: Yes: Other (obesity) - Past Surgical History Past Surgical History: Yes: Appendectomy (, ventral hernia repair), Bariatric Surgery (gastric sleeve surgery (20 years ago per the patient)), Cholecystectomy , Hernia Repair (ventral) - Smoking History Smoking history: Never smoked Have you smoked in the past 12 months: No Aproximately how many cigarettes per day: 0 - Alcohol/Substance Use Hx Alcohol Use: No History of Substance Use: reports: None - Social History ADL: Family Assistance History of Recent Travel: No Home Medications - Allergies Allergies/Adverse Reactions: Allergies Allergy/AdvReac Type Severity Reaction Status Date / Time aspirin Allergy Intermediate Rash Verified 08/15/19 15:55 Penicillins AdvReac Severe Vomiting Verified 08/15/19 15:56 - Home Medications Home Medications: Ambulatory Orders Nebivolol [Bystolic -] 5 mg PO DAILY 05/11/16 Omeprazole 40 mg PO DAILY 05/13/16 Clopidogrel Bisulfate [Plavix] 75 mg PO DAILY 03/19/18 Gabapentin 300 mg PO TID 03/19/18 Sertraline HCl 100 mg PO DAILY 02/13/19 Acetaminophen [Mapap] 1,000 mg PO QID PRN 06/01/19 Buspirone HCl [Buspar -] 30 mg PO BID 06/01/19 Cyclosporine [Restasis] 1 each OP BID 06/01/19 Meclizine HCl [Antivert -] 25 mg PO BID PRN 06/01/19 Pregabalin [Lyrica] 100 mg PO TID 06/01/19 Cefuroxime Axetil [Ceftin -] 500 mg PO Q12H #14 tablet 06/03/19 Review of Systems - Review of Systems Respiratory: reports: No Symptoms Gastrointestinal: reports: Abdominal Pain Genitourinary: reports: No Symptoms Physical Examination Vital Signs: Vital Signs Temperature 98.1 F 08/16/19 05:00 Pulse Rate 65 08/16/19 05:00 Respiratory Rate 19 08/16/19 05:00 Blood Pressure 147/72 08/16/19 05:00 O2 Sat by Pulse Oximetry (%) 95 08/15/19 21:00 Cardiovascular: Yes: Regular Rate and Rhythm Respiratory: Yes: Regular, CTA Bilaterally Gastrointestinal: Yes: Normal Bowel Sounds, Soft. No: Tenderness Labs: CBC, BMP 08/16/19 08:58 Imaging - Results Cat Scan: Report Reviewed Problem List - Problems (1) Pulmonary nodule Assessment/Plan: pulm consult will need outpatient follow up Code(s): R91.1 - SOLITARY PULMONARY NODULE (2) UTI (urinary tract infection) Assessment/Plan: abx await cultures id consult Code(s): N39.0 - URINARY TRACT INFECTION, SITE NOT SPECIFIED (3) Abdominal pain Assessment/Plan: ct noted await id consult Code(s): R10.9 - UNSPECIFIED ABDOMINAL PAIN
[2019-08-16 10:53] LABS: ALBUMIN 2.8 g/dl (3.4-5.0); BILIRUBIN,TOTAL 0.7 mg/dL (0.2-1); BLOOD UREA NITROGEN 11.3 mg/dL (7-18); CREATININE 0.8 mg/dL (0.55-1.3); POTASSIUM 4.1 mmol/L (3.5-5.1); TOT PROT 7.2 g/dl (6.4-8.2)
--- NOTE | 2019-08-16 13:45 | CON.PULM ---
Consult Consult Specialty:: PULM/CCM Referred by:: LAUREN Reason for Consultation:: Abnormal CT - History of Present Illness Chief Complaint: Urinary symptoms History of Present Illness: 83 F, HTN, CVA, CVA, obesity, and previous multiple abdominal surgeries ( appendectomy, cholecystectomy, gastric sleeve 20 yrs ago, abdominoplasty). Admitted via the ER due to nausea and vomiting, dysuria, urgency, flank pain, and frequency. She does report mild intermittent lower abdominal pain. She does report some minimal dry cough. No CP or SOB. No hemoptysis of night sweats. Patient denies symptoms consistent with OSAS. CT Abdomen and Pelvis: slight increase in non-specific nodular infiltrates at the bases with 2 areas small bullae. Some of these changes were noted on the CT 06/18. The patient has never had a dedicated Chest CT. 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 No: Asthma, Cancer, COPD, O2 Dependent, Pneumonia, Previously Intubated, Pulmonary Embolus, Pulmonary Fibrosis, Sleep Apnea Gastrointestinal: Yes: GERD Psych: Yes: Depression Endocrine: Yes: Other (obesity) - Past Surgical History Past Surgical History: Yes: Appendectomy (, ventral hernia repair), Bariatric Surgery (gastric sleeve surgery (20 years ago per the patient)), Cholecystectomy , Hernia Repair (ventral) - Alcohol/Substance Use Hx Alcohol Use: No History of Substance Use: reports: None - Smoking History Smoking history: Never smoked Have you smoked in the past 12 months: No Aproximately how many cigarettes per day: 0 - Social History Usual Living Arrangement: Alone ADL: Family Assistance History of Recent Travel: No Home Medications - Allergies Allergies/Adverse Reactions: Allergies Allergy/AdvReac Type Severity Reaction Status Date / Time aspirin Allergy Intermediate Rash Verified 08/15/19 15:55 Penicillins AdvReac Severe Vomiting Verified 08/15/19 15:56 - Home Medications Home Medications: Ambulatory Orders Nebivolol [Bystolic -] 5 mg PO DAILY 05/11/16 Omeprazole 40 mg PO DAILY 05/13/16 Clopidogrel Bisulfate [Plavix] 75 mg PO DAILY 03/19/18 Gabapentin 300 mg PO TID 03/19/18 Sertraline HCl 100 mg PO DAILY 02/13/19 Acetaminophen [Mapap] 1,000 mg PO QID PRN 06/01/19 Buspirone HCl [Buspar -] 30 mg PO BID 06/01/19 Cyclosporine [Restasis] 1 each OP BID 06/01/19 Meclizine HCl [Antivert -] 25 mg PO BID PRN 06/01/19 Pregabalin [Lyrica] 100 mg PO TID 06/01/19 Cefuroxime Axetil [Ceftin -] 500 mg PO Q12H #14 tablet 06/03/19 Review of Systems - Review of Systems Constitutional: reports: Malaise. denies: Chills, Fever, Night Sweats Eyes: reports: No Symptoms HENT: reports: No Symptoms Neck: reports: No Symptoms Cardiovascular: denies: Chest Pain, Edema, Palpitations, Shortness of Breath Respiratory: reports: Cough. denies: Hemoptysis, Orthopnea, PND, Snoring, SOB, SOB on Exertion, Wheezing Gastrointestinal: reports: Abdominal Pain Genitourinary: reports: Burning, Dysuria, Flank Pain, Frequency Breasts: reports: No Symptoms Reported Musculoskeletal: reports: No Symptoms Integumentary: reports: No Symptoms Neurological: reports: No Symptoms Endocrine: reports: No Symptoms Hematology/Lymphatic: reports: No Symptoms Psychiatric: reports: No Symptoms Physical Exam Vital Sings: Vital Signs Temperature 98.1 F 08/16/19 05:00 Pulse Rate 65 08/16/19 05:00 Respiratory Rate 19 08/16/19 05:00 Blood Pressure 147/72 08/16/19 05:00 O2 Sat by Pulse Oximetry (%) 95 08/15/19 21:00 Constitutional: Yes: No Distress, Calm, Obese Eyes: Yes: Conjunctiva Clear, EOM Intact HENT: Yes: Atraumatic, Normocephalic Neck: Yes: Supple, Trachea Midline Cardiovascular: Yes: Regular Rate and Rhythm Respiratory: Yes: Diminished, Rhonchi. No: Accessory Muscle Use, Rales, SOB, SOB on Exertion, Stridor, Tachypnea, Wheezes ...Inspection: Yes: WNL ...Clubbing: No Gastrointestinal: Yes: Normal Bowel Sounds, Soft, Abdomen, Obese Renal/: Yes: WNL Musculoskeletal: Yes: WNL Extremities: Yes: WNL Edema: No Peripheral Pulses WNL: Yes Integumentary: Yes: WNL Neurological: Yes: WNL, Alert, Oriented ...Motor Strength: WNL Psychiatric: Yes: WNL, Alert, Oriented Labs: CBC, BMP 08/16/19 08:58 08/16/19 08:58 Imaging - Results Chest X-ray: Report Reviewed, Image Reviewed Cat Scan: Report Reviewed, Image Reviewed Problem List - Problems (1) Pulmonary nodule Code(s): R91.1 - SOLITARY PULMONARY NODULE (2) Abdominal pain Code(s): R10.9 - UNSPECIFIED ABDOMINAL PAIN (3) CAD (coronary artery disease) Code(s): I25.10 - ATHSCL HEART DISEASE OF [place] CORONARY ARTERY W/O ANG PCTRS (4) Flank pain Code(s): R10.9 - UNSPECIFIED ABDOMINAL PAIN (5) GERD (gastroesophageal reflux disease) Code(s): K21.9 - GASTRO-ESOPHAGEAL REFLUX DISEASE WITHOUT ESOPHAGITIS (6) History of CVA (cerebrovascular accident) Code(s): Z86.73 - PRSNL HX OF TIA (TIA), AND CEREB INFRC W/O RESID DEFICITS (7) Hypertension Code(s): I10 - ESSENTIAL (PRIMARY) HYPERTENSION (8) Obesity Code(s): E66.9 - OBESITY, UNSPECIFIED Assessment/Plan IMP: CT findings more consistent with atelectatic changes likely due to gravity and splinting Do not suspect true Pulmonary nodule. Patient reports being a life long non- smoker. There is no clear indication for full Chest CT imaging PLAN: GI workup per Primary Incentive Spirometry Pain control Supplemental O2 as needed Do not feel additional Chest imaging is needed No smoking was counseled Will follow Thank you. Dr Desai ARIANNE Screen - ARIANNE History Previously diagnosed with Sleep Apnea: No If Yes, currently using CPAP to treat your ARIANNE: No - SNORING Do you snore loudly (enough to be heard thru closed doors)?: No - TIRED Do you often feel tired, fatigued, or sleepy during daytime?: No - OBSERVED Has anyone observed you stop breathing during your sleep?: No - BLOOD PRESSURE Do you have or are being treated for high blood pressure?: No - BMI Answer Y if weight exceeds amount listed for your height: Yes .: HEIGHT & WEIGHT (lbs): 4'10" 167lbs; 4'11" 175 lbs; 5'0" 179lbs;. 5 '1" 185lbs; 5'2" 191lbs; 5'3" 197lbs;. 5'4" 204lbs; 5'5" 210lbs; 5'6" 216lbs;. 5'7" 223lbs; 5'8" 230lbs; 5'9" 237lbs;. 5'10" 243lbs ; 5'11" 250lbs; 6' 258lbs;. 6'1" 265lbs; 6'2" 272lbs; 6'3" 279lbs ;. 6'4" 287lbs; 6'5" 295lbs - AGE Is your age over 50 yrs old?: Yes - NECK CIRCUMFERENCE Neck Circumference 40cm: No - GENDER Male: No - SCORE Total Score: 2 Score Interpretation: Low Risk of ARIANNE .: Interpretation: Score 0-2: Low Risk ARIANNE. Score 3-4: Intermediate Risk ARIANNE. Score 5-8: High Risk ARIANNE
[2019-08-16] MEDS: D5-1/2NS+20 MEQ KCL - 20 MEQ/1,000 ML INFUS.BAG IV SCH (21:21)
[2019-08-16] MEDS: PREGABALIN 50 MG CAPSULE PO SCH (21:22)
[2019-08-16] MEDS: GABAPENTIN 300 MG CAPSULE PO SCH (21:22)
--- NOTE | 2019-08-16 22:12 | PN ---
Progress Note (short form) - Note Progress Note: ID CONSULT DICTATED UTI R/O SEPSIS SECONDARY TO UTI PCN ALLERGY AWAIT C/S EMPIRIC CEFTRIAXONE
[2019-08-17] MEDS: GABAPENTIN 300 MG CAPSULE PO SCH ×3 (06:18→21:41)
[2019-08-17] MEDS: PREGABALIN 50 MG CAPSULE PO SCH ×3 (06:18→21:41)
--- NOTE | 2019-08-17 09:24 | PN ---
Progress Note (short form) - Note Progress Note: Resting in NAD. No CP or SOB. No acute events overnight. Intake & Output 08/14/19 08/15/19 08/16/19 08/17/19 23:59 23:59 23:59 23:59 Intake Total 200 1450 Balance 200 1450 Weight 222 lb 8 oz Last Vital Signs Temp Pulse Resp BP Pulse Ox 97.7 F 66 18 158/82 95 08/17/19 05:28 08/17/19 05:28 08/17/19 05:28 08/17/19 05:28 08/16/19 21:00 Active Medications Acetaminophen (Tylenol -) 1,000 mg PO QID PRN PRN Reason: PAIN Buspirone HCl (Buspar -) 30 mg PO BID [facility] Last Admin: 08/16/19 21:21 Dose: 30 mg Clopidogrel Bisulfate (Plavix -) 75 mg PO DAILY [facility] Last Admin: 08/16/19 09:46 Dose: 75 mg Gabapentin (Neurontin -) 300 mg PO TID [facility] Last Admin: 08/17/19 06:18 Dose: 300 mg Heparin Sodium (Porcine) (Heparin -) 5,000 unit SQ BID [facility] Last Admin: 08/16/19 21:21 Dose: 5,000 unit Ceftriaxone Sodium 1 gm/ (Dextrose) 50 mls @ 100 mls/hr IVPB DAILY [facility]; Protocol Last Admin: 08/16/19 09:47 Dose: 100 mls/hr Potassium Chloride/Dextrose/Sod Cl (D5-1/2ns+20 Meq Kcl -) 20 meq in 1,000 mls @ 42 mls/hr IV ASDIR [facility] Last Admin: 08/16/19 21:21 Dose: 42 mls/hr Meclizine HCl (Antivert -) 25 mg PO BID PRN PRN Reason: NAUSEA Nebivolol (Bystolic -) 5 mg PO DAILY [facility] Last Admin: 08/16/19 09:46 Dose: 5 mg Pantoprazole Sodium (Protonix -) 40 mg PO DAILY [facility] Last Admin: 08/16/19 09:46 Dose: 40 mg Pregabalin (Lyrica -) 100 mg PO TID [facility] Last Admin: 08/17/19 06:18 Dose: 100 mg Sertraline HCl (Zoloft -) 100 mg PO DAILY [facility] Last Admin: 08/16/19 09:46 Dose: 100 mg Constitutional: Yes: No Distress, Calm, Obese Eyes: Yes: Conjunctiva Clear, EOM Intact HENT: Yes: Atraumatic, Normocephalic Neck: Yes: Supple, Trachea Midline Cardiovascular: Yes: Regular Rate and Rhythm Respiratory: Yes: Diminished, few rhonchi. No: Accessory Muscle Use, Rales, SOB , SOB on Exertion, Stridor, Tachypnea, Wheezes ...Inspection: Yes: WNL ...Clubbing: No Gastrointestinal: Yes: Normal Bowel Sounds, Soft, Abdomen, Obese Renal/: Yes: WNL Musculoskeletal: Yes: WNL Extremities: Yes: WNL Edema: No Peripheral Pulses WNL: Yes Integumentary: Yes: WNL Neurological: Yes: WNL, Alert, Oriented ...Motor Strength: WNL Psychiatric: Yes: WNL, Alert, Oriented Labs: Laboratory Results - last 24 hr 08/16/19 08/16/19 08/16/19 08:58 08:58 12:30 WBC 7.4 RBC 4.71 Hgb 11.3 Hct 33.7 MCV 71.7 L MCH 24.0 L MCHC 33.5 RDW 18.8 H Plt Count 246 MPV 8.1 Absolute Neuts (auto) 5.0 Neutrophils % 67.8 Lymphocytes % 19.0 Monocytes % 8.9 Eosinophils % 3.6 D Basophils % 0.7 Nucleated RBC % 0 Sodium 141 Potassium 4.1 Chloride 108 H Carbon Dioxide 25 Anion Gap 8 BUN 11.3 Creatinine 0.8 Est GFR (CKD-EPI)AfAm 79.57 Est GFR (CKD-EPI)NonAf 68.66 Random Glucose 122 H Calcium 9.0 Total Bilirubin 0.7 AST 32 ALT 22 Alkaline Phosphatase 107 Creatine Kinase 44 Troponin I < 0.02 Total Protein 7.2 Albumin 2.8 L TSH 2.74 Imaging - Results Chest X-ray: Report Reviewed, Image Reviewed Cat Scan: Report Reviewed, Image Reviewed Problem List - Problems (1) Pulmonary nodule Code(s): R91.1 - SOLITARY PULMONARY NODULE (2) Abdominal pain Code(s): R10.9 - UNSPECIFIED ABDOMINAL PAIN (3) CAD (coronary artery disease) Code(s): I25.10 - ATHSCL HEART DISEASE OF [place] CORONARY ARTERY W/O ANG PCTRS (4) Flank pain Code(s): R10.9 - UNSPECIFIED ABDOMINAL PAIN (5) GERD (gastroesophageal reflux disease) Code(s): K21.9 - GASTRO-ESOPHAGEAL REFLUX DISEASE WITHOUT ESOPHAGITIS (6) History of CVA (cerebrovascular accident) Code(s): Z86.73 - PRSNL HX OF TIA (TIA), AND CEREB INFRC W/O RESID DEFICITS (7) Hypertension Code(s): I10 - ESSENTIAL (PRIMARY) HYPERTENSION (8) Obesity Code(s): E66.9 - OBESITY, UNSPECIFIED ARIANNE Screen - ARIANNE History Previously diagnosed with Sleep Apnea: No If Yes, currently using CPAP to treat your ARIANNE: No - SNORING Do you snore loudly (enough to be heard thru closed doors)?: No - TIRED Do you often feel tired, fatigued, or sleepy during daytime?: No - OBSERVED Has anyone observed you stop breathing during your sleep?: No - BLOOD PRESSURE Do you have or are being treated for high blood pressure?: No - BMI Answer Y if weight exceeds amount listed for your height: Yes .: HEIGHT & WEIGHT (lbs): 4'10" 167lbs; 4'11" 175 lbs; 5'0" 179lbs;. 5 '1" 185lbs; 5'2" 191lbs; 5'3" 197lbs;. 5'4" 204lbs; 5'5" 210lbs; 5'6" 216lbs;. 5'7" 223lbs; 5'8" 230lbs; 5'9" 237lbs;. 5'10" 243lbs ; 5'11" 250lbs; 6' 258lbs;. 6'1" 265lbs; 6'2" 272lbs; 6'3" 279lbs ;. 6'4" 287lbs; 6'5" 295lbs - AGE Is your age over 50 yrs old?: Yes - NECK CIRCUMFERENCE Neck Circumference 40cm: No - GENDER Male: No - SCORE Total Score: 2 Score Interpretation: Low Risk of ARIANNE .: Interpretation: Score 0-2: Low Risk ARIANNE. Score 3-4: Intermediate Risk ARIANNE. Score 5-8: High Risk ARIANNE Assessment/Plan IMP: CT findings more consistent with atelectatic changes likely due to gravity and splinting Do not suspect true Pulmonary nodule. Patient reports being a life long non- smoker. There is no clear indication for full Chest CT imaging PLAN: GI workup per Primary Incentive Spirometry Pain control Supplemental O2 as needed Do not feel additional Chest imaging is needed No smoking was counseled Dr Desai Problem List - Problems (1) Pulmonary nodule Code(s): R91.1 - SOLITARY PULMONARY NODULE (2) Abdominal pain Code(s): R10.9 - UNSPECIFIED ABDOMINAL PAIN (3) CAD (coronary artery disease) Code(s): I25.10 - ATHSCL HEART DISEASE OF [place] CORONARY ARTERY W/O ANG PCTRS (4) Flank pain Code(s): R10.9 - UNSPECIFIED ABDOMINAL PAIN (5) GERD (gastroesophageal reflux disease) Code(s): K21.9 - GASTRO-ESOPHAGEAL REFLUX DISEASE WITHOUT ESOPHAGITIS (6) History of CVA (cerebrovascular accident) Code(s): Z86.73 - PRSNL HX OF TIA (TIA), AND CEREB INFRC W/O RESID DEFICITS (7) Hypertension Code(s): I10 - ESSENTIAL (PRIMARY) HYPERTENSION (8) Obesity Code(s): E66.9 - OBESITY, UNSPECIFIED
[2019-08-17] MEDS ORDERED: PT OWN MED DRAWER 7, Y5N ONE ×3 (09:31→21:39)
[2019-08-17] MEDS: HEPARIN NA (PORCINE) 5,000 UNITS/ML 1ML VIAL SQ SCH ×2 (09:32→21:41)
[2019-08-17] MEDS: SERTRALINE HCL 50 MG TABLET (FP) PO SCH (09:32)
[2019-08-17] MEDS: CLOPIDOGREL BISULFATE 75 MG TABLET (FP) PO SCH (09:33)
[2019-08-17] MEDS: busPIRone HCL 10 MG TABLET (FP) PO SCH ×2 (09:33→21:41)
[2019-08-17] MEDS: NEBIVOLOL 5 MG TABLET (FP) PO SCH (09:33)
[2019-08-17] MEDS: PANTOPRAZOLE 40 MG TABLET PO SCH (09:33)
[2019-08-17] MEDS ORDERED: ACETAMINOPHEN 500 MG TABLET (FP) PO PRN (09:40)
[2019-08-17] MEDS ORDERED: cefTRIAXone SODIUM 1 GM VIAL ONE (09:51)
[2019-08-17] MEDS ORDERED: DEXTROSE 5%-WATER - 50 ML IVPB ONE (09:51)
[2019-08-17] MEDS: CEFTRIAXONE 1 GM in DEXTROSE 5%-WATER - 50 ML IVPB SCH (09:58)
--- NOTE | 2019-08-17 10:08 | EKG ---
Test Reason : Blood Pressure : / mmHG Vent. Rate : 067 BPM Atrial Rate : 067 BPM P-R Int : 148 ms QRS Dur : 078 ms QT Int : 412 ms P-R-T Axes : 009 002 045 degrees QTc Int : 435 ms NORMAL SINUS RHYTHM NORMAL ECG WHEN COMPARED WITH ECG OF 15-AUG-2019 11:53, NO SIGNIFICANT CHANGE WAS FOUND Confirmed by Hakeem Laureano ([id number]) on 08/17/2019 10:08:20 AM Referred By: Saravanan MORALES Confirmed By:Hakeem Laureano
--- NOTE | 2019-08-17 10:25 | EKG ---
Test Reason : Blood Pressure : / mmHG Vent. Rate : 072 BPM Atrial Rate : 072 BPM P-R Int : 146 ms QRS Dur : 072 ms QT Int : 404 ms P-R-T Axes : 025 -12 026 degrees QTc Int : 442 ms NORMAL SINUS RHYTHM MINIMAL VOLTAGE CRITERIA FOR LVH, MAY BE NORMAL VARIANT BORDERLINE ECG WHEN COMPARED WITH ECG OF 01-JUN-2019 17:23, NO SIGNIFICANT CHANGE WAS FOUND Confirmed by Hakeem Laureano ([id number]) on 08/17/2019 10:25:11 AM Referred By: Confirmed By:Hakeem Laureano
--- NOTE | 2019-08-17 10:51 | CONS ---
INFECTIOUS DISEASE CONSULTATION DATE OF CONSULTATION: DATE OF DICTATION: 08/16/2019 HISTORY: An 83-year-old female evaluated for urinary tract infection. She was admitted to the hospital on August 15, 2019, with complaints of nausea, vomiting, dysuria, urinary frequency and urgency. She was admitted to the hospital where urinalysis showed white cells. Urine culture now growing a lactose oriental rug stretcher. She was empirically treated with ceftriaxone. At the present time, she is out of bed to chair. She complains of urinary frequency and urgency. She denies any suprapubic or flank pain. No complaints of fevers or chills. Her last hospitalization was in May 2019, for a urinary tract infection. At that time, she was found to have a positive urine culture for E. coli, which was sensitive to ceftriaxone. She has a history of PENICILLIN allergy, however, has tolerated cephalosporins in the past. PAST MEDICAL HISTORY: Positive for stroke, hypertension, morbid obesity. PAST SURGICAL HISTORY: Status post appendectomy, cholecystectomy, gastric sleeve. ALLERGIES: PENICILLIN. Allergy described as vomiting. She has tolerated cephalosporins in the past. MEDICATIONS: Include ceftriaxone, Tylenol, BuSpar, Plavix, Neurontin, Bystolic, Lyrica, Zoloft. SOCIAL HISTORY: She resides in the community. She is a nonsmoker, nondrinker. SYSTEMS REVIEW: Neurologic: Positive for stroke. Cardiac: Negative chest pain or palpitations. Respiratory: Negative cough or sputum production. Gastrointestinal: Positive for nausea and vomiting. Genitourinary: As per HPI. LABORATORY DATA: White count 7.4, hematocrit 33.7, platelet count 246, creatinine 0.8. Urinalysis 59 white cells. Urine culture growing a lactose oriental rug stretcher. PHYSICAL EXAMINATION: General: On exam, she is awake and alert. Out of bed to chair. Morbidly obese. She is not acutely toxic appearing. Vital Signs: Temperature 98.1, blood pressure 150/87, pulse 63 regular, respirations 19 per minute. Heart: Sounds S1, S2. Lungs: Clear. Abdomen: Soft. There is mild suprapubic tenderness to palpation. No flank tenderness. Extremities: Have 1+ edema. IMPRESSION: 1. Urinary tract infection, rule out sepsis secondary to urinary tract infection. 2. PENICILLIN allergy. PLAN: Await culture results. Empiric antibiotic coverage with ceftriaxone pending culture results. Patient has tolerated cephalosporins in the past. Further recommendations pending cultures. We will follow. Thank you for the kind referral. ROBERT DELUCA M.D. ASHLEY/[id number]
--- NOTE | 2019-08-17 14:56 | PN ---
Progress Note, Physician Chief Complaint: Medicine coverage for Dr. Scott/Dr. Barnes admitted with ecoli uti and question lung nodule. seen by Pulmonary and ID. on IV antbx. History of Present Illness: 83 year old female with PMH HTN, Obesity, CVA presented to the ED with n/v, found to have ecoli UTI, pulmonary feels atelectasis on imaging not single pulm nodule. blood cultures from today pending. Continues on IV ceftriaxone, PCN allergic. - Current Medication List Current Medications: Active Medications Acetaminophen (Tylenol -) 1,000 mg PO Q6H PRN PRN Reason: PAIN Buspirone HCl (Buspar -) 30 mg PO BID [facility] Last Admin: 08/17/19 09:33 Dose: 30 mg Clopidogrel Bisulfate (Plavix -) 75 mg PO DAILY [facility] Last Admin: 08/17/19 09:33 Dose: 75 mg Gabapentin (Neurontin -) 300 mg PO TID [facility] Last Admin: 08/17/19 13:31 Dose: 300 mg Heparin Sodium (Porcine) (Heparin -) 5,000 unit SQ BID [facility] Last Admin: 08/17/19 09:32 Dose: 5,000 unit Ceftriaxone Sodium 1 gm/ (Dextrose) 50 mls @ 100 mls/hr IVPB DAILY [facility]; Protocol Last Admin: 08/17/19 09:58 Dose: 100 mls/hr Potassium Chloride/Dextrose/Sod Cl (D5-1/2ns+20 Meq Kcl -) 20 meq in 1,000 mls @ 42 mls/hr IV ASDIR [facility] Last Admin: 08/16/19 21:21 Dose: 42 mls/hr Meclizine HCl (Antivert -) 25 mg PO BID PRN PRN Reason: NAUSEA Nebivolol (Bystolic -) 5 mg PO DAILY [facility] Last Admin: 08/17/19 09:33 Dose: 5 mg Pantoprazole Sodium (Protonix -) 40 mg PO DAILY [facility] Last Admin: 08/17/19 09:33 Dose: 40 mg Pregabalin (Lyrica -) 100 mg PO TID [facility] Last Admin: 08/17/19 13:31 Dose: 100 mg Sertraline HCl (Zoloft -) 100 mg PO DAILY [facility] Last Admin: 08/17/19 09:32 Dose: 100 mg - Objective Vital Signs: Vital Signs Temperature 97.6 F 08/17/19 14:34 Pulse Rate 66 08/17/19 14:34 Respiratory Rate 18 08/17/19 14:34 Blood Pressure 146/80 08/17/19 14:34 O2 Sat by Pulse Oximetry (%) 95 08/17/19 09:00 Constitutional: Yes: Well Nourished HENT: Yes: WNL, Atraumatic, Normocephalic Neck: Yes: Supple Cardiovascular: Yes: Regular Rate and Rhythm Respiratory: Yes: WNL Gastrointestinal: Yes: Normal Bowel Sounds, Soft Genitourinary: Yes: WNL Integumentary: Yes: WNL Neurological: Yes: WNL, Alert, Oriented Labs: CBC, BMP 08/16/19 08:58 08/16/19 08:58 Problem List - Problems (1) UTI (urinary tract infection) Assessment/Plan: ID following urine culture showed ecoli blood cultures taken today pending IV ceftriaxone- sensitive PCN allergic afebrile voiding Problems reviewed: Yes Code(s): N39.0 - URINARY TRACT INFECTION, SITE NOT SPECIFIED Qualifiers: Urinary tract infection type: acute cystitis Hematuria presence: without hematuria Qualified Code(s): N30.00 - Acute cystitis without hematuria (2) Abdominal pain Assessment/Plan: r/t UTI continue to treat UTI can consider GI/ imaging if no relief w/ antbx Problems reviewed: Yes Code(s): R10.9 - UNSPECIFIED ABDOMINAL PAIN Qualifiers: Abdominal location: lower abdomen, unspecified Qualified Code(s): R10.30 - Lower abdominal pain, unspecified (3) CAD (coronary artery disease) Assessment/Plan: continue plavix check lipid profile in AM Problems reviewed: Yes Code(s): I25.10 - ATHSCL HEART DISEASE OF [place] CORONARY ARTERY W/O ANG PCTRS (4) History of CVA (cerebrovascular accident) Assessment/Plan: continue plavix asa allergy check lipid profile in am Problems reviewed: Yes Code(s): Z86.73 - PRSNL HX OF TIA (TIA), AND CEREB INFRC W/O RESID DEFICITS (5) Hypertension Assessment/Plan: BP running high dc fluids continue bystolic consider second agent if bp continues to stay high Problems reviewed: Yes Code(s): I10 - ESSENTIAL (PRIMARY) HYPERTENSION (6) Obesity Assessment/Plan: 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
[2019-08-18] MEDS: PREGABALIN 50 MG CAPSULE PO SCH ×3 (05:38→21:16)
[2019-08-18] MEDS: GABAPENTIN 300 MG CAPSULE PO SCH ×3 (05:38→21:16)
[2019-08-18] MEDS ORDERED: cefTRIAXone SODIUM 1 GM VIAL ONE (09:08)
[2019-08-18] MEDS ORDERED: PT OWN MED DRAWER 7, Y5N ONE ×2 (09:08→09:41)
[2019-08-18] MEDS ORDERED: DEXTROSE 5%-WATER - 50 ML IVPB ONE (09:08)
[2019-08-18] MEDS: CEFTRIAXONE 1 GM in DEXTROSE 5%-WATER - 50 ML IVPB SCH (09:09)
[2019-08-18] MEDS: SERTRALINE HCL 50 MG TABLET (FP) PO SCH (09:10)
[2019-08-18] MEDS: PANTOPRAZOLE 40 MG TABLET PO SCH (09:10)
[2019-08-18] MEDS: HEPARIN NA (PORCINE) 5,000 UNITS/ML 1ML VIAL SQ SCH ×2 (09:10→21:16)
[2019-08-18] MEDS: CLOPIDOGREL BISULFATE 75 MG TABLET (FP) PO SCH (09:10)
[2019-08-18] MEDS: NEBIVOLOL 5 MG TABLET (FP) PO SCH (09:21)
[2019-08-18] MEDS: busPIRone HCL 10 MG TABLET (FP) PO SCH ×2 (09:21→21:17)
[2019-08-18 09:29] LABS: BASO % 0.3 % (0-2.0); EOS % 3.4 % (0-4.5); HEMATOCRIT 36.7 % (32.4-45.2); HEMOGLOBIN 12.2 GM/dL (10.7-15.3); LYMPH % 21.3 % (8-40); MCH 23.9 pg (25.7-33.7); MCHC 33.2 g/dl (32.0-36.0); MEAN PLT VOLUME 7.9 fl (7.5-11.1); MONO % 8.7 % (3.8-10.2); NEUT % 66.3 % (42.8-82.8); PLATELET COUNT 270 K/MM3 (134-434); RDW 19.1 % (11.6-15.6); WHITE BLOOD COUNT 7.3 K/mm3 (4.0-10.0)
[2019-08-18 09:36] LABS: BLOOD UREA NITROGEN 10.7 mg/dL (7-18); CALCIUM 9.4 mg/dL (8.5-10.1); CREATININE 0.9 mg/dL (0.55-1.3); POTASSIUM 4.3 mmol/L (3.5-5.1)
--- NOTE | 2019-08-18 09:36 | PN ---
Progress Note (short form) - Note Progress Note: Resting in NAD. No CP or SOB. No acute events overnight. Intake & Output 08/15/19 08/16/19 08/17/19 08/18/19 23:59 23:59 23:59 23:59 Intake Total 200 1450 850 500 Balance 200 1450 850 500 Weight 222 lb 8 oz Last Vital Signs Temp Pulse Resp BP Pulse Ox 97.4 F L 75 17 136/72 90 L 08/18/19 08:48 08/18/19 08:48 08/18/19 09:00 08/18/19 08:48 08/18/19 09:00 Active Medications Acetaminophen (Tylenol -) 1,000 mg PO Q6H PRN PRN Reason: PAIN Last Admin: 08/17/19 21:45 Dose: 1,000 mg Buspirone HCl (Buspar -) 30 mg PO BID [facility] Last Admin: 08/18/19 09:21 Dose: 30 mg Clopidogrel Bisulfate (Plavix -) 75 mg PO DAILY [facility] Last Admin: 08/18/19 09:10 Dose: 75 mg Gabapentin (Neurontin -) 300 mg PO TID [facility] Last Admin: 08/18/19 05:38 Dose: 300 mg Heparin Sodium (Porcine) (Heparin -) 5,000 unit SQ BID [facility] Last Admin: 08/18/19 09:10 Dose: 5,000 unit Ceftriaxone Sodium 1 gm/ (Dextrose) 50 mls @ 100 mls/hr IVPB DAILY [facility]; Protocol Last Admin: 08/18/19 09:09 Dose: 100 mls/hr Meclizine HCl (Antivert -) 25 mg PO BID PRN PRN Reason: NAUSEA Nebivolol (Bystolic -) 5 mg PO DAILY [facility] Last Admin: 08/18/19 09:21 Dose: 5 mg Pantoprazole Sodium (Protonix -) 40 mg PO DAILY [facility] Last Admin: 08/18/19 09:10 Dose: 40 mg Pregabalin (Lyrica -) 100 mg PO TID [facility] Last Admin: 08/18/19 05:38 Dose: 100 mg Sertraline HCl (Zoloft -) 100 mg PO DAILY [facility] Last Admin: 08/18/19 09:10 Dose: 100 mg Constitutional: Yes: No Distress, Calm, Obese Eyes: Yes: Conjunctiva Clear, EOM Intact HENT: Yes: Atraumatic, Normocephalic Neck: Yes: Supple, Trachea Midline Cardiovascular: Yes: Regular Rate and Rhythm Respiratory: Yes: Diminished, few rhonchi. No: Accessory Muscle Use, Rales, SOB , SOB on Exertion, Stridor, Tachypnea, Wheezes ...Inspection: Yes: WNL ...Clubbing: No Gastrointestinal: Yes: Normal Bowel Sounds, Soft, Abdomen, Obese Renal/: Yes: WNL Musculoskeletal: Yes: WNL Extremities: Yes: WNL Edema: No Peripheral Pulses WNL: Yes Integumentary: Yes: WNL Neurological: Yes: WNL, Alert, Oriented ...Motor Strength: WNL Psychiatric: Yes: WNL, Alert, Oriented Labs: Imaging - Results Chest X-ray: Report Reviewed, Image Reviewed Cat Scan: Report Reviewed, Image Reviewed Problem List - Problems (1) Pulmonary nodule Code(s): R91.1 - SOLITARY PULMONARY NODULE (2) Abdominal pain Code(s): R10.9 - UNSPECIFIED ABDOMINAL PAIN (3) CAD (coronary artery disease) Code(s): I25.10 - ATHSCL HEART DISEASE OF [place] CORONARY ARTERY W/O ANG PCTRS (4) Flank pain Code(s): R10.9 - UNSPECIFIED ABDOMINAL PAIN (5) GERD (gastroesophageal reflux disease) Code(s): K21.9 - GASTRO-ESOPHAGEAL REFLUX DISEASE WITHOUT ESOPHAGITIS (6) History of CVA (cerebrovascular accident) Code(s): Z86.73 - PRSNL HX OF TIA (TIA), AND CEREB INFRC W/O RESID DEFICITS (7) Hypertension Code(s): I10 - ESSENTIAL (PRIMARY) HYPERTENSION (8) Obesity Code(s): E66.9 - OBESITY, UNSPECIFIED ARIANNE Screen - ARIANNE History Previously diagnosed with Sleep Apnea: No If Yes, currently using CPAP to treat your ARIANNE: No - SNORING Do you snore loudly (enough to be heard thru closed doors)?: No - TIRED Do you often feel tired, fatigued, or sleepy during daytime?: No - OBSERVED Has anyone observed you stop breathing during your sleep?: No - BLOOD PRESSURE Do you have or are being treated for high blood pressure?: No - BMI Answer Y if weight exceeds amount listed for your height: Yes .: HEIGHT & WEIGHT (lbs): 4'10" 167lbs; 4'11" 175 lbs; 5'0" 179lbs;. 5 '1" 185lbs; 5'2" 191lbs; 5'3" 197lbs;. 5'4" 204lbs; 5'5" 210lbs; 5'6" 216lbs;. 5'7" 223lbs; 5'8" 230lbs; 5'9" 237lbs;. 5'10" 243lbs ; 5'11" 250lbs; 6' 258lbs;. 6'1" 265lbs; 6'2" 272lbs; 6'3" 279lbs ;. 6'4" 287lbs; 6'5" 295lbs - AGE Is your age over 50 yrs old?: Yes - NECK CIRCUMFERENCE Neck Circumference 40cm: No - GENDER Male: No - SCORE Total Score: 2 Score Interpretation: Low Risk of ARIANNE .: Interpretation: Score 0-2: Low Risk ARIANNE. Score 3-4: Intermediate Risk ARIANNE. Score 5-8: High Risk ARIANNE Assessment/Plan IMP: CT findings more consistent with atelectatic changes likely due to gravity and splinting Do not suspect true Pulmonary nodule. Patient reports being a life long non- smoker. There is no clear indication for full Chest CT imaging PLAN: GI workup per Primary Incentive Spirometry Pain control Supplemental O2 as needed Do not feel additional Chest imaging is needed No smoking was counseled Dr Desai Problem List - Problems (1) Pulmonary nodule Code(s): R91.1 - SOLITARY PULMONARY NODULE (2) Abdominal pain Code(s): R10.9 - UNSPECIFIED ABDOMINAL PAIN Qualifiers: Abdominal location: lower abdomen, unspecified Qualified Code(s): R10.30 - Lower abdominal pain, unspecified (3) CAD (coronary artery disease) Code(s): I25.10 - ATHSCL HEART DISEASE OF [place] CORONARY ARTERY W/O ANG PCTRS (4) Flank pain Code(s): R10.9 - UNSPECIFIED ABDOMINAL PAIN (5) GERD (gastroesophageal reflux disease) Code(s): K21.9 - GASTRO-ESOPHAGEAL REFLUX DISEASE WITHOUT ESOPHAGITIS (6) History of CVA (cerebrovascular accident) Code(s): Z86.73 - PRSNL HX OF TIA (TIA), AND CEREB INFRC W/O RESID DEFICITS (7) Hypertension Code(s): I10 - ESSENTIAL (PRIMARY) HYPERTENSION (8) Obesity Code(s): E66.9 - OBESITY, UNSPECIFIED Qualifiers: Obesity classification: adult class 3 (BMI >= 40)
--- NOTE | 2019-08-18 15:37 | PN ---
Progress Note, Physician Chief Complaint: Medicine coverage for Dr. Scott/Dr. Barnes admitted with ecoli uti and question lung nodule. seen by Pulmonary and ID. on IV antbx. episode of vertigo this am History of Present Illness: 83 year old female with PMH HTN, Obesity, CVA presented to the ED with n/v, found to have ecoli UTI, pulmonary feels atelectasis on imaging not single pulm nodule. blood cultures from today pending. Continues on IV ceftriaxone, PCN allergic. - Current Medication List Current Medications: Active Medications Acetaminophen (Tylenol -) 1,000 mg PO Q6H PRN PRN Reason: PAIN Last Admin: 08/17/19 21:45 Dose: 1,000 mg Buspirone HCl (Buspar -) 30 mg PO BID [facility] Last Admin: 08/18/19 09:21 Dose: 30 mg Clopidogrel Bisulfate (Plavix -) 75 mg PO DAILY [facility] Last Admin: 08/18/19 09:10 Dose: 75 mg Gabapentin (Neurontin -) 300 mg PO TID [facility] Last Admin: 08/18/19 14:41 Dose: 300 mg Heparin Sodium (Porcine) (Heparin -) 5,000 unit SQ BID [facility] Last Admin: 08/18/19 09:10 Dose: 5,000 unit Ceftriaxone Sodium 1 gm/ (Dextrose) 50 mls @ 100 mls/hr IVPB DAILY [facility]; Protocol Last Admin: 08/18/19 09:09 Dose: 100 mls/hr Meclizine HCl (Antivert -) 25 mg PO BID PRN PRN Reason: NAUSEA Nebivolol (Bystolic -) 5 mg PO DAILY [facility] Last Admin: 08/18/19 09:21 Dose: 5 mg Pantoprazole Sodium (Protonix -) 40 mg PO DAILY [facility] Last Admin: 08/18/19 09:10 Dose: 40 mg Pregabalin (Lyrica -) 100 mg PO TID [facility] Last Admin: 08/18/19 14:41 Dose: 100 mg Sertraline HCl (Zoloft -) 100 mg PO DAILY [facility] Last Admin: 08/18/19 09:10 Dose: 100 mg - Objective Vital Signs: Vital Signs Temperature 97.3 F L 08/18/19 14:40 Pulse Rate 76 08/18/19 14:40 Respiratory Rate 18 08/18/19 14:40 Blood Pressure 130/96 08/18/19 14:40 O2 Sat by Pulse Oximetry (%) 90 L 08/18/19 09:00 Constitutional: Yes: Well Nourished, No Distress HENT: Yes: Atraumatic, Normocephalic Neck: Yes: Supple Cardiovascular: Yes: Regular Rate and Rhythm Respiratory: Yes: Regular, CTA Bilaterally Gastrointestinal: Yes: WNL, Normal Bowel Sounds, Soft Genitourinary: Yes: WNL Neurological: Yes: Alert, Oriented Labs: CBC, BMP 08/18/19 08:21 08/18/19 08:21 Problem List - Problems (1) UTI (urinary tract infection) Assessment/Plan: ID following urine culture showed ecoli blood cultures 08/17 pending IV ceftriaxone- sensitive PCN allergic afebrile voiding Code(s): N39.0 - URINARY TRACT INFECTION, SITE NOT SPECIFIED Qualifiers: Urinary tract infection type: acute cystitis Hematuria presence: without hematuria Qualified Code(s): N30.00 - Acute cystitis without hematuria (2) Abdominal pain Assessment/Plan: r/t UTI continue to treat UTI can consider GI/ imaging if no relief w/ antbx Code(s): R10.9 - UNSPECIFIED ABDOMINAL PAIN Qualifiers: Abdominal location: lower abdomen, unspecified Qualified Code(s): R10.30 - Lower abdominal pain, unspecified (3) CAD (coronary artery disease) Assessment/Plan: continue plavix check lipid profile in AM Code(s): I25.10 - ATHSCL HEART DISEASE OF [place] CORONARY ARTERY W/O ANG PCTRS (4) History of CVA (cerebrovascular accident) Assessment/Plan: continue plavix asa allergy check lipid profile in am Code(s): Z86.73 - PRSNL HX OF TIA (TIA), AND CEREB INFRC W/O RESID DEFICITS (5) Hypertension Code(s): I10 - ESSENTIAL (PRIMARY) HYPERTENSION (6) Obesity Assessment/Plan: referral to outpatient bariatrics beamer helper referral Code(s): E66.9 - OBESITY, UNSPECIFIED Qualifiers: Obesity classification: adult class 3 (BMI >= 40) (7) Vertigo Assessment/Plan: PRN meclizine physical therapy Problems reviewed: Yes Code(s): R42 - DIZZINESS AND GIDDINESS
[2019-08-19] MEDS: GABAPENTIN 300 MG CAPSULE PO SCH ×2 (05:24→14:15)
[2019-08-19] MEDS: PREGABALIN 50 MG CAPSULE PO SCH ×2 (05:24→14:07)
[2019-08-19 06:36] VITALS: BP 134/68; PULSE 69; TEMP 98.1
[2019-08-19] MEDS ORDERED: cefTRIAXone SODIUM 1 GM VIAL ONE (09:52)
[2019-08-19] MEDS ORDERED: PT OWN MED DRAWER 7, Y5N ONE ×2 (09:52→10:05)
[2019-08-19] MEDS ORDERED: DEXTROSE 5%-WATER - 50 ML IVPB ONE (09:52)
[2019-08-19] MEDS: CEFTRIAXONE 1 GM in DEXTROSE 5%-WATER - 50 ML IVPB SCH (09:53)
[2019-08-19] MEDS: CLOPIDOGREL BISULFATE 75 MG TABLET (FP) PO SCH (09:55)
[2019-08-19] MEDS: PANTOPRAZOLE 40 MG TABLET PO SCH (09:55)
[2019-08-19] MEDS: busPIRone HCL 10 MG TABLET (FP) PO SCH (09:56)
[2019-08-19] MEDS: HEPARIN NA (PORCINE) 5,000 UNITS/ML 1ML VIAL SQ SCH (09:57)
[2019-08-19] MEDS: SERTRALINE HCL 50 MG TABLET (FP) PO SCH (09:57)
[2019-08-19] MEDS: NEBIVOLOL 5 MG TABLET (FP) PO SCH (10:08)
--- NOTE | 2019-08-19 13:34 | PN ---
Progress Note, Physician History of Present Illness: pulmonary alert,oob-chair,comfortable,-sob - Current Medication List Current Medications: Active Medications Acetaminophen (Tylenol -) 1,000 mg PO Q6H PRN PRN Reason: PAIN Last Admin: 08/17/19 21:45 Dose: 1,000 mg Buspirone HCl (Buspar -) 30 mg PO BID [facility] Last Admin: 08/19/19 09:56 Dose: 30 mg Clopidogrel Bisulfate (Plavix -) 75 mg PO DAILY [facility] Last Admin: 08/19/19 09:55 Dose: 75 mg Gabapentin (Neurontin -) 300 mg PO TID [facility] Last Admin: 08/19/19 05:24 Dose: 300 mg Heparin Sodium (Porcine) (Heparin -) 5,000 unit SQ BID [facility] Last Admin: 08/19/19 09:57 Dose: 5,000 unit Ceftriaxone Sodium 1 gm/ (Dextrose) 50 mls @ 100 mls/hr IVPB DAILY [facility]; Protocol Last Admin: 08/19/19 09:53 Dose: 100 mls/hr Meclizine HCl (Antivert -) 25 mg PO BID PRN PRN Reason: NAUSEA Last Admin: 08/19/19 09:57 Dose: 25 mg Nebivolol (Bystolic -) 5 mg PO DAILY [facility] Last Admin: 08/19/19 10:08 Dose: 5 mg Pantoprazole Sodium (Protonix -) 40 mg PO DAILY [facility] Last Admin: 08/19/19 09:55 Dose: 40 mg Pregabalin (Lyrica -) 100 mg PO TID [facility] Last Admin: 08/19/19 05:24 Dose: 100 mg Sertraline HCl (Zoloft -) 100 mg PO DAILY [facility] Last Admin: 08/19/19 09:57 Dose: 100 mg - Objective Vital Signs: Vital Signs Temperature 98.1 F 08/19/19 06:00 Pulse Rate 69 08/19/19 06:00 Respiratory Rate 18 08/19/19 09:00 Blood Pressure 134/68 08/19/19 06:00 O2 Sat by Pulse Oximetry (%) 92 L 08/19/19 09:00 Constitutional: Yes: Well Nourished, Calm Eyes: Yes: WNL HENT: Yes: WNL Neck: Yes: WNL Cardiovascular: Yes: Regular Rate and Rhythm, S1, S2 Respiratory: Yes: CTA Bilaterally Gastrointestinal: Yes: Normal Bowel Sounds, Soft Extremities: Yes: WNL Edema: No Labs: CBC, BMP Assessment/Plan Problem List - Problems (1) Pulmonary nodule Code(s): R91.1 - SOLITARY PULMONARY NODULE (2) Abdominal pain Code(s): R10.9 - UNSPECIFIED ABDOMINAL PAIN (3) CAD (coronary artery disease) Code(s): I25.10 - ATHSCL HEART DISEASE OF [place] CORONARY ARTERY W/O ANG PCTRS (4) Flank pain Code(s): R10.9 - UNSPECIFIED ABDOMINAL PAIN (5) GERD (gastroesophageal reflux disease) Code(s): K21.9 - GASTRO-ESOPHAGEAL REFLUX DISEASE WITHOUT ESOPHAGITIS (6) History of CVA (cerebrovascular accident) Code(s): Z86.73 - PRSNL HX OF TIA (TIA), AND CEREB INFRC W/O RESID DEFICITS (7) Hypertension Code(s): I10 - ESSENTIAL (PRIMARY) HYPERTENSION (8) Obesity Code(s): E66.9 - OBESITY, UNSPECIFIED ARIANNE Screen - ARIANNE History Previously diagnosed with Sleep Apnea: No If Yes, currently using CPAP to treat your ARIANNE: No - SNORING Do you snore loudly (enough to be heard thru closed doors)?: No - TIRED Do you often feel tired, fatigued, or sleepy during daytime?: No - OBSERVED Has anyone observed you stop breathing during your sleep?: No - BLOOD PRESSURE Do you have or are being treated for high blood pressure?: No - BMI Answer Y if weight exceeds amount listed for your height: Yes .: HEIGHT & WEIGHT (lbs): 410" 167lbs; " 175 lbs; 5'0" 179lbs;. 5 '1" 185lbs; 5'2" 191lbs; 53" 197lbs;. 54" 204lbs; 55" 210lbs; 56" 216lbs;. 57" 223lbs; 58" 230lbs; 59" 237lbs;. 5'10" 243lbs ; 511" 250lbs; 6' 258lbs;. 6'1" 265lbs; 6'2" 272lbs; 6'3" 279lbs ;. 6'4" 287lbs; 6'5" 295lbs - AGE Is your age over 50 yrs old?: Yes - NECK CIRCUMFERENCE Neck Circumference 40cm: No - GENDER Male: No - SCORE Total Score: 2 Score Interpretation: Low Risk of ARIANNE .: Interpretation: Score 0-2: Low Risk ARIANNE. Score 3-4: Intermediate Risk ARIANNE. Score 5-8: High Risk ARIANNE Assessment/Plan IMP: CT findings more consistent with atelectatic changes likely due to gravity and splinting Do not suspect true Pulmonary nodule. Patient reports being a life long non- smoker. There is no clear indication for full Chest CT imaging PLAN: GI workup per Primary Incentive Spirometry Pain control Supplemental O2 as needed Do not feel additional Chest imaging is needed No smoking was counseled Dr Albert Problem List - Problems (1) Pulmonary nodule Code(s): R91.1 - SOLITARY PULMONARY NODULE (2) Abdominal pain Code(s): R10.9 - UNSPECIFIED ABDOMINAL PAIN Qualifiers: Abdominal location: lower abdomen, unspecified Qualified Code(s): R10.30 - Lower abdominal pain, unspecified (3) CAD (coronary artery disease) Code(s): I25.10 - ATHSCL HEART DISEASE OF [place] CORONARY ARTERY W/O ANG PCTRS (4) Flank pain Code(s): R10.9 - UNSPECIFIED ABDOMINAL PAIN (5) GERD (gastroesophageal reflux disease) Code(s): K21.9 - GASTRO-ESOPHAGEAL REFLUX DISEASE WITHOUT ESOPHAGITIS (6) History of CVA (cerebrovascular accident) Code(s): Z86.73 - PRSNL HX OF TIA (TIA), AND CEREB INFRC W/O RESID DEFICITS (7) Hypertension Code(s): I10 - ESSENTIAL (PRIMARY) HYPERTENSION (8) Obesity Code(s): E66.9 - OBESITY, UNSPECIFIED Qualifiers: Obesity classification: adult class 3 (BMI >= 40)
[2019-08-19] MEDS ORDERED: BISACODYL 10 MG SUPP.RECT PR ONE (13:50)
--- NOTE | 2019-08-19 14:17 | DS ---
Physical Examination Vital Signs: Vital Signs Temperature 98.1 F 08/19/19 06:00 Pulse Rate 69 08/19/19 06:00 Respiratory Rate 18 08/19/19 09:00 Blood Pressure 134/68 08/19/19 06:00 O2 Sat by Pulse Oximetry (%) 92 L 08/19/19 09:00 Constitutional: Yes: Well Nourished, No Distress, Calm HENT: Yes: Atraumatic, Normocephalic Neck: Yes: Supple Cardiovascular: Yes: Regular Rate and Rhythm Respiratory: Yes: CTA Bilaterally Gastrointestinal: Yes: Normal Bowel Sounds, Other Neurological: Yes: Alert, Oriented Labs: CBC, BMP 08/18/19 08:21 08/18/19 08:21 Discharge Summary Problems reviewed: Yes Reason For Visit: URINARY TRACT INFECTION;NAUSEA AND VOMITING Current Active Problems Pulmonary nodule (Acute) UTI (urinary tract infection) (Acute) Vertigo (Acute) Vomiting (Acute) Hospital Course: patient was seen and evaluated by pulmonology and ID. was given IV antbx for ecoli uti. blood cultures remain negative. she reports constipation. she was evaluated by pulm for ? lung nodule, felt to be atelectasis. she can f/u outpatient for PFTs. Condition: Improved - Instructions Referrals: Yosvany Morris MD [Primary Care Provider] - Disposition: HOME - Home Medications Comprehensive Discharge Medication List: Ambulatory Orders Nebivolol [Bystolic -] 5 mg PO DAILY 05/11/16 Omeprazole 40 mg PO DAILY 05/13/16 Clopidogrel Bisulfate [Plavix] 75 mg PO DAILY 03/19/18 Gabapentin 300 mg PO TID 03/19/18 Sertraline HCl 100 mg PO DAILY 02/13/19 Acetaminophen [Mapap] 1,000 mg PO QID PRN 06/01/19 Buspirone HCl [Buspar -] 30 mg PO BID 06/01/19 Cyclosporine [Restasis] 1 each OP BID 06/01/19 Meclizine HCl [Antivert -] 25 mg PO BID PRN 06/01/19 Pregabalin [Lyrica] 100 mg PO TID 06/01/19 Cefuroxime Axetil [Ceftin -] 500 mg PO Q12H #14 tablet 06/03/19 Cefuroxime Axetil [Ceftin -] 500 mg PO Q12H #10 tablet 08/19/19 Prescription Drug Monitoring Program (I-STOP) results: I-STOP not reviewed
== END 2019-08-19 14:51 | disposition home or self-care (01) | DRG 690 ==
LOC: JER 10:19 → JERBED 15:04 → J6S 18:39
PROVIDERS: ADMIT Family Medicine; ATTEND Family Medicine
DX: N39.0 Urinary tract infection, site not specified (principal); J98.11 Atelectasis; E66.9 Obesity, unspecified; Z68.41 Body mass index [BMI] 40.0-44.9, adult; B96.20 Unspecified Escherichia coli [E. coli] as the cause of diseases classified elsewhere; R91.1 Solitary pulmonary nodule; R10.9 Unspecified abdominal pain; R42 Dizziness and giddiness
CPT/HCPCS: 36415; 74177-TC; 80048; 80053; 80061; 81003; 82550; 82962; 83605; 83690; 83721; 84443; 84484; 85025; 87040; 87086; 87186; 93005; 93010; 94010; 97116-GP; 99285-25; J0131; J1644; J7030; Q9967

== ENCOUNTER 2019-09-02 10:35 | Inpatient (IN) | payer OTHER ==
[2019-09-02] MEDS ORDERED: LACTATED RINGERS SOLUTION 1,000 ML/1,000 ML INFUS.BAG IV STA (11:06)
[2019-09-02] MEDS ORDERED: ONDANSETRON 4 MG/2 ML VIAL IVPUSH ONE ×3 (11:17→16:02)
[2019-09-02] MEDS ORDERED: ONDANSETRON 4 MG/2 ML VIAL ONE ×2 (11:21→16:14)
[2019-09-02 11:25] LABS: BASO % 0.8 % (0-2.0); EOS % 1.1 % (0-4.5); HEMOGLOBIN 12.1 GM/dL (10.7-15.3); LYMPH % 27.5 % (8-40); MCH 23.6 pg (25.7-33.7); MCHC 33.5 g/dl (32.0-36.0); MEAN CELL VOLUME 70.4 fl (80-96); MEAN PLT VOLUME 7.7 fl (7.5-11.1); MONO % 9.4 % (3.8-10.2); NEUT % 61.2 % (42.8-82.8); PLATELET COUNT 249 K/MM3 (134-434)
[2019-09-02 11:38] LABS: INR 1.03 (0.83-1.09); PROTHROMBIN TIME (PATIENT) 12.2 SEC (9.7-13.0)
[2019-09-02 11:46] LABS: EPI CELLS 3.2 /HPF (0-5/HPF); HYALINE CASTS 9 /lpf (0-8); PH,URINE >= 9.0 (5.0-8.0); URINE APPEARANCE CLOUDY; URINE BACTERIA 2995.3 /hpf (NEGATIVE); URINE BILIRUBIN NEGATIVE (NEGATIVE); URINE COLOR YELLOW; URINE GLUCOSE (UA) NEGATIVE (NEGATIVE); URINE KETONE NEGATIVE (NEGATIVE); URINE LEUK ESTERASE TRACE (NEGATIVE); URINE NITRITE NEGATIVE (NEGATIVE); URINE PROTEIN TRACE (NEGATIVE); URINE RBC 9 /hpf (0-4); URINE UROBILINOGEN 0.2 mg/dL (0.2-1.0); URINE WBC 12 /hpf (0-5)
[2019-09-02] MEDS ORDERED: ACETAMINOPHEN 1000 MG/100 ML VIAL (NON FORMULARY) IVPB ONE (12:51)
[2019-09-02 14:48] LABS: ALBUMIN 3.1 g/dl (3.4-5.0); BILIRUBIN,TOTAL 0.6 mg/dL (0.2-1); BLOOD UREA NITROGEN 15.2 mg/dL (7-18); CALCIUM 8.9 mg/dL (8.5-10.1); POTASSIUM 5.8 mmol/L (3.5-5.1); TOT PROT 7.9 g/dl (6.4-8.2)
[2019-09-02] MEDS ORDERED: FAMOTIDINE 20 MG/50 ML IVPB 20 MG/50 ML MG IVPB ONE ×2 (16:12→16:22)
[2019-09-02] MEDS ORDERED: DEXTROSE 5%-LACTATED RINGERS 1,000 ML IV SCH (16:15)
--- NOTE | 2019-09-02 16:31 | PDOC ---
Documentation entered by Sada Lopez SCRIBE, acting as scribe for Moose Contreras MD. Moose Contreras MD: This documentation has been prepared by the Jessica zhang Adrianna, SCRIBE, under my direction and personally reviewed by me in its entirety. I confirm that the documentation accurately reflects all work, treatment, procedures, and medical decision making performed by me. History of Present Illness - General Chief Complaint: Pain Stated Complaint: ABD PAIN Time Seen by Provider: 09/02/19 10:49 - History of Present Illness Initial Comments: The patient is an 83 year old female, with a significant PMH of HTN, CVA, Obesity (with history of multiple abdominal surgeries including appendectomy, cholecystectomy, gastric sleeve, and abdominoplasty), who presents to the ED for evaluation of abdominal pain for one day. Patient complains of diffuse abdominal pain that began last night, worst at the RLQ. She endorses associated nausea, vomit, and diarrhea. HPI is limited secondary to poor mental status, as she appears confused and is unsure of where she is. Allergies: Aspirin, penicillins Surgical History: appendectomy, cholecystectomy, gastric sleeve, abdominoplasty , left knee replacement Social History: No toxic habits PCP: Dr. Morris Past History - Past Medical History Allergies/Adverse Reactions: Allergies Allergy/AdvReac Type Severity Reaction Status Date / Time aspirin Allergy Intermediate Rash Verified 08/15/19 15:55 Penicillins AdvReac Severe Vomiting Verified 08/15/19 15:56 Home Medications: Ambulatory Orders Nebivolol [Bystolic -] 5 mg PO DAILY 05/11/16 Omeprazole 40 mg PO DAILY 05/13/16 Clopidogrel Bisulfate [Plavix] 75 mg PO DAILY 03/19/18 Gabapentin 300 mg PO TID 03/19/18 Sertraline HCl 100 mg PO DAILY 02/13/19 Acetaminophen [Mapap] 1,000 mg PO QID PRN 06/01/19 Buspirone HCl [Buspar -] 30 mg PO BID 06/01/19 Cyclosporine [Restasis] 1 each OP BID 06/01/19 Meclizine HCl [Antivert -] 25 mg PO BID PRN 06/01/19 Pregabalin [Lyrica] 100 mg PO TID 06/01/19 Cefuroxime Axetil [Ceftin -] 500 mg PO Q12H #14 tablet 06/03/19 Cefuroxime Axetil [Ceftin -] 500 mg PO Q12H #10 tablet 08/19/19 Anemia: No Asthma: No Cancer: No Cardiac Disorders: No CVA: Yes ("MINI-STROKE" 1 YR AGO) COPD: No CHF: No Dementia: No Diabetes: No GI Disorders: No Disorders: No HTN: Yes Hypercholesterolemia: No Liver Disease: No Psychiatric Problems: Yes Seizures: Yes (due to panic attack) Thyroid Disease: No - Surgical History Abdominal Surgery: Yes ("reconstruction") Appendectomy: No Cardiac Surgery: No Cholecystectomy: Yes Lung Surgery: No Neurologic Surgery: No Orthopedic Surgery: Yes (LT KNEE REPLACEMENT) - Immunization History Immunization Up to Date: Yes - Psycho Social/Smoking Cessation Hx Smoking Status: No Smoking History: Never smoked Have you smoked in the past 12 months: No Number of Cigarettes Smoked Daily: 0 Information on smoking cessation initiated: No Hx Alcohol Use: No Drug/Substance Use Hx: No Substance Use Type: None Hx Substance Use Treatment: No Review of Systems - Review of Systems Comments:: CONSTITUTIONAL: No fever, no chills, no fatigue EYES: No visual changes ENT: No ear pain, no sore throat CARDIOVASCULAR: No chest pain, no palpitations RESPIRATORY: No cough, no SOB GI: +Diffuse abdominal pain, worst at RLQ. +Nausea. +Vomit. +Diarrhea. No constipation, no diarrhea GENITOURINARY: No dysuria, no frequency, no hematuria MUSKULOSKELETAL: No back pain, no joint pain, no myalgias SKIN: No rash NEURO: No headache *Physical Exam - Vital Signs Last Vital Signs Temp Pulse Resp BP Pulse Ox 97.2 F L 65 18 163/81 99 09/02/19 10:42 09/02/19 10:42 09/02/19 10:42 09/02/19 10:42 09/02/19 10:42 - Physical Exam 09/02/19 16:26 EXAMINATION: Patient seen and evaluated immediately upon arrival. This physical exam is being recorded prior to admission. CONSTITUTIONAL: On arrival, patient noted to be awake and alert, obese, Confused , writhing in pain HEAD: Normocephalic; atraumatic EYES: PERRL; EOM intact; No scleral icterus ENMT: External appears normal; Mucous membranes are dry NECK: Supple; non-tender; no cervical lymphadenopathy CARD: Normal S1, S2; no murmurs, rubs, or gallops RESP: Normal chest excursion with respiration; breath sounds clear and equal bilaterally; no wheezes, rhonchi, or rales ABD: Soft, non-distended; Right lower quadrant and periumbilical tenderness to palpation with voluntary guarding; no palpable organomegaly, no palpable hernias EXT: Normal ROM in all four extremities; non-tender to palpation; distal pulses intact SKIN: Warm, dry, no rash NEURO: Moving all extremities symmetrically; no pronation drift ED Treatment Course - LABORATORY CBC & Chemistry Diagram: 09/02/19 11:03 09/02/19 11:03 - ADDITIONAL ORDERS Additional order review: Laboratory Results 09/02/19 09/02/19 09/02/19 11:30 11:04 11:03 PT with INR INR Sodium 139 Potassium 5.8 H Chloride 110 H Carbon Dioxide 23 Anion Gap 6 L BUN 15.2 Creatinine 1.0 Est GFR (CKD-EPI)AfAm 60.76 Est GFR (CKD-EPI)NonAf 52.42 POC Glucometer 96 Random Glucose 88 Calcium 8.9 Total Bilirubin 0.6 AST 68 H ALT 20 Alkaline Phosphatase 117 Total Protein 7.9 Albumin 3.1 L Urine Color Yellow Urine Appearance Cloudy Urine pH >= 9.0 H Ur Specific [place] 1.011 Urine Protein Trace Urine Glucose (UA) Negative Urine Ketones Negative Urine Blood Negative Urine Nitrite Negative Urine Bilirubin Negative Urine Urobilinogen 0.2 Ur Leukocyte Esterase Trace Urine WBC (Auto) 12 Urine RBC (Auto) 9 Urine Casts (Auto) 9 U Epithel Cells (Auto) 3.2 Urine Bacteria (Auto) 2995.3 Blood Type Antibody Screen 09/02/19 09/02/19 09/02/19 11:03 11:03 11:03 PT with INR 12.20 INR 1.03 Sodium Cancelled Potassium Cancelled Chloride Cancelled Carbon Dioxide Cancelled Anion Gap Cancelled BUN Cancelled Creatinine Cancelled Est GFR (CKD-EPI)AfAm Cancelled Est GFR (CKD-EPI)NonAf Cancelled POC Glucometer Random Glucose Cancelled Calcium Cancelled Total Bilirubin Cancelled AST Cancelled ALT Cancelled Alkaline Phosphatase Cancelled Total Protein Cancelled Albumin Cancelled Urine Color Urine Appearance Urine pH Ur Specific [place] Urine Protein Urine Glucose (UA) Urine Ketones Urine Blood Urine Nitrite Urine Bilirubin Urine Urobilinogen Ur Leukocyte Esterase Urine WBC (Auto) Urine RBC (Auto) Urine Casts (Auto) U Epithel Cells (Auto) Urine Bacteria (Auto) Blood Type O POSITIVE Antibody Screen Negative 09/02/19 09/02/19 11:04 11:03 RBC 5.10 MCV 70.4 L MCHC 33.5 RDW 19.0 H MPV 7.7 Neutrophils % 61.2 Lymphocytes % 27.5 D Monocytes % 9.4 Eosinophils % 1.1 Basophils % 0.8 POC Glucometer 96 - RADIOLOGY Radiology Studies Ordered: Category Date Time Status ABDOMEN & PELVIS CT W/O CONTR [CT] Stat CT Scan 09/02/19 11:05 Completed CHEST - PA [RAD] Stat Radiology 09/02/19 11:04 Completed Radiograph Interpretation: EXAM#: TYPE/EXAM: RESULT: [id number] CT/ABDOMEN PELVIS CT W/O CONTR HISTORY PROVIDED: Right lower quadrant pain IMPRESSION: No evidence of acute pathology within the abdomen or pelvis or significant change since 08/15/2019. Please see above discussion. Reported By: Chance Hardy MD 09/02/19 14:01 EXAM#: TYPE/EXAM: RESULT: [id number] RAD/CHEST - PA Chest: Abdominal pain Impression: No acute chest pathology. Hiatal hernia. Sclerotic knob. Clear lungs. Reported By: Alcidse Leblanc MD 09/02/19 14:05 - Medications Given in the ED: ED Medications Discontinued Medications Generic Name Dose Route Start Last Admin Trade Name Freq PRN Reason Stop Dose Admin Acetaminophen 1,000 mg 09/02/19 12:51 09/02/19 13:11 Ofirmev Injection - IVPB 09/02/19 12:52 1,000 mg ONCE ONE Administration Lactated Ringer's 1,000 ml in 1,000 mls @ 1,000 mls/hr 09/02/19 11:06 11:24 Lactated Ringers Solution IV 09/02/19 12:05 1,000 mls/hr ONCE STA Administration Ondansetron HCl 4 mg 09/02/19 11:17 09/02/19 11:24 Zofran Injection IVPUSH 09/02/19 11:18 4 mg ONCE ONE Administration Ondansetron HCl 4 mg 09/02/19 16:01 09/02/19 16:11 Zofran Injection IVPUSH 09/02/19 16:02 Not Given ONCE ONE Ondansetron HCl 4 mg 09/02/19 16:02 09/02/19 16:21 Zofran Injection IVPUSH 09/02/19 16:03 4 mg ONCE ONE Administration Medical Decision Making - Medical Decision Making 09/02/19 16:29 Patient is 83-year-old [place]ander-speaking female with history of hypertension CVA , morbid obesity who presented to the ER with severe right-sided abdominal pain , nausea, nonbloody nonbilious vomiting and loose watery stools. Initial exam, patient was noted to be afebrile with focal right lower quadrant and periumbilical tenderness to palpation with voluntary guarding. CBC was noted to be within normal limit. CT of abdomen pelvis with p.o. contrast was obtained which showed no evidence of acute pathology. On reassessment, patient reports feeling mildly improved with persistent epigastric discomfort and persistent nausea. Additional doses of IV Zofran will be administered. We will continue to hydrate. Will admit for further evaluation and treatment. Discharge - Discharge Information Problems reviewed: Yes Clinical Impression/Diagnosis: Hyperkalemia Abdominal pain Qualifiers: Abdominal location: right lower quadrant Qualified Code(s): R10.31 - Right lower quadrant pain Nausea & vomiting Qualifiers: Vomiting type: unspecified Vomiting Intractability: unspecified Qualified Code( s): R11.2 - Nausea with vomiting, unspecified Condition: Fair - Admission Yes - Follow up/Referral Referrals: Yosvany Morris MD [Primary Care Provider] - - Patient Discharge Instructions - Post Discharge Activity
[2019-09-02] MEDS ORDERED: ONDANSETRON 4 MG/2 ML VIAL IVPUSH PRN (16:33)
[2019-09-02] MEDS ORDERED: MECLIZINE HCL 25 MG TABLET (FP) PO PRN (16:35)
--- NOTE | 2019-09-02 16:46 | HP ---
Admitting History and Physical - Primary Care Physician PCP: Yosvany Morris - Admission Chief Complaint: nausea, vomiting, diarrhea, abd pain History of Present Illness: 83 year old chinese speaking female with PMH htn, cva, obesity, history of multiple abd surgeries (appy, amy, gastric sleeve 20 yrs ago, abdominoplasty) , c/o n/v/d x1 day. she has RLQ and epigastric pain, +relief from zofran, pepcid , IV tylenol. she had large amount of diarrhea yesterday loose watery, and no bm yet today. she reports vomiting last night. she states she feels weak, she has not been eating/drinking like herself. she denies fevers, chills, denies chest pains pressure. reports chronic back pain. 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 No: Asthma, Cancer, COPD, O2 Dependent, Pneumonia, Previously Intubated, Pulmonary Embolus, Pulmonary Fibrosis, Sleep Apnea Gastrointestinal: Yes: GERD Psych: Yes: Depression Musculoskeletal: Yes: Chronic low back pain Endocrine: Yes: Other (obesity) - Past Surgical History Past Surgical History: Yes: Appendectomy (, ventral hernia repair), Bariatric Surgery (gastric sleeve surgery (20 years ago per the patient)), Cholecystectomy , Hernia Repair (ventral) - Smoking History Smoking history: Never smoked Have you smoked in the past 12 months: No Aproximately how many cigarettes per day: 0 - Alcohol/Substance Use Hx Alcohol Use: No History of Substance Use: reports: None - Social History Usual Living Arrangement: Yes: Alone ADL: Family Assistance History of Recent Travel: No Home Medications - Allergies Allergies/Adverse Reactions: Allergies Allergy/AdvReac Type Severity Reaction Status Date / Time aspirin Allergy Intermediate Rash Verified 08/15/19 15:55 Penicillins AdvReac Severe Vomiting Verified 08/15/19 15:56 - Home Medications Home Medications: Ambulatory Orders Nebivolol [Bystolic -] 5 mg PO DAILY 05/11/16 Omeprazole 40 mg PO DAILY 05/13/16 Clopidogrel Bisulfate [Plavix] 75 mg PO DAILY 03/19/18 Gabapentin 300 mg PO TID 03/19/18 Sertraline HCl 100 mg PO DAILY 02/13/19 Acetaminophen [Mapap] 1,000 mg PO QID PRN 06/01/19 Buspirone HCl [Buspar -] 30 mg PO BID 06/01/19 Cyclosporine [Restasis] 1 each OP BID 06/01/19 Meclizine HCl [Antivert -] 25 mg PO BID PRN 06/01/19 Pregabalin [Lyrica] 100 mg PO TID 06/01/19 Cefuroxime Axetil [Ceftin -] 500 mg PO Q12H #14 tablet 06/03/19 Cefuroxime Axetil [Ceftin -] 500 mg PO Q12H #10 tablet 08/19/19 Family Medical History Family History: Unable to Obtain Review of Systems - Review of Systems Constitutional: reports: Lethargy, Loss of Appetite, Weakness Eyes: reports: No Symptoms HENT: reports: No Symptoms Cardiovascular: reports: No Symptoms Respiratory: reports: No Symptoms Gastrointestinal: reports: Abdominal Pain, Diarrhea, Vomiting Genitourinary: reports: Frequency Musculoskeletal: reports: Back Pain, Muscle Weakness Integumentary: reports: No Symptoms Neurological: reports: No Symptoms Physical Examination Vital Signs: Vital Signs Temperature 98.0 F 09/02/19 16:31 Pulse Rate 67 09/02/19 16:31 Respiratory Rate 19 09/02/19 16:31 Blood Pressure 158/78 09/02/19 16:31 O2 Sat by Pulse Oximetry (%) 99 09/02/19 16:31 Constitutional: Yes: Mild Distress HENT: Yes: Atraumatic, Normocephalic Neck: Yes: Supple Cardiovascular: Yes: Regular Rate and Rhythm Respiratory: Yes: Regular, CTA Bilaterally Gastrointestinal: Yes: Normal Bowel Sounds, Tenderness, Tenderness, Epigastrium Musculoskeletal: Yes: Back Pain Integumentary: Yes: WNL Neurological: Yes: Alert Labs: CBC, BMP 09/02/19 11:03 09/02/19 11:03 Imaging - Results Chest X-ray: Report Reviewed Cat Scan: Report Reviewed Problem List - Problems (1) Abdominal pain Assessment/Plan: GI consult IVF IV antiemetics, pepcid ct abd neg for acute pathology hx gerd check stool Code(s): R10.9 - UNSPECIFIED ABDOMINAL PAIN Qualifiers: Abdominal location: right lower quadrant Qualified Code(s): R10.31 - Right lower quadrant pain (2) Hyperkalemia Assessment/Plan: k 5.8, IVF given, recheck Code(s): E87.5 - HYPERKALEMIA (3) Nausea & vomiting Assessment/Plan: IVF, antiemetic Code(s): R11.2 - NAUSEA WITH VOMITING, UNSPECIFIED Qualifiers: Vomiting type: unspecified Vomiting Intractability: unspecified Qualified Code(s): R11.2 - Nausea with vomiting, unspecified (4) CAD (coronary artery disease) Assessment/Plan: cont home meds Code(s): I25.10 - ATHSCL HEART DISEASE OF [place] CORONARY ARTERY W/O ANG PCTRS (5) GERD (gastroesophageal reflux disease) Assessment/Plan: po omeprazole on hold, IV pepcid Code(s): K21.9 - GASTRO-ESOPHAGEAL REFLUX DISEASE WITHOUT ESOPHAGITIS (6) History of CVA (cerebrovascular accident) Assessment/Plan: cont home meds Code(s): Z86.73 - PRSNL HX OF TIA (TIA), AND CEREB INFRC W/O RESID DEFICITS (7) Hypertension Assessment/Plan: cont home meds Code(s): I10 - ESSENTIAL (PRIMARY) HYPERTENSION (8) Neuropathic pain Assessment/Plan: cont home meds Code(s): M79.2 - NEURALGIA AND NEURITIS, UNSPECIFIED (9) Obesity Assessment/Plan: 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
[2019-09-02] MEDS ORDERED: BUSPIRONE HCL PO SCH (22:00)
[2019-09-02] MEDS ORDERED: PATIENT'S OWN MEDICATION (NON-FORMULARY) (Cyclosporine [Restasis] 1 EACH) OP SCH (22:00)
[2019-09-02] MEDS ORDERED: PREGABALIN 100 MG CAPSULE PO SCH (22:00)
[2019-09-02] MEDS: GABAPENTIN 300 MG CAPSULE PO SCH (22:04)
[2019-09-02] MEDS: PREGABALIN 50 MG CAPSULE PO SCH (22:04)
[2019-09-02] MEDS: HEPARIN NA (PORCINE) 5,000 UNITS/ML 1ML VIAL SQ SCH (22:05)
[2019-09-02] MEDS: SODIUM CHLORIDE 1,000 ML IV SCH (22:05)
[2019-09-02] MEDS: busPIRone HCL 10 MG TABLET (FP) PO SCH (23:18)
[2019-09-03] MEDS ORDERED: PT OWN MED DRAWER 7, Y5N ONE ×4 (06:38→17:27)
[2019-09-03 08:06] LABS: BASO % 0.6 % (0-2.0); EOS % 3.3 % (0-4.5); HEMATOCRIT 34.3 % (32.4-45.2); HEMOGLOBIN 11.4 GM/dL (10.7-15.3); LYMPH % 18.2 % (8-40); MCH 23.7 pg (25.7-33.7); MCHC 33.3 g/dl (32.0-36.0); MEAN CELL VOLUME 71.1 fl (80-96); MEAN PLT VOLUME 8.9 fl (7.5-11.1); NEUT % 68.9 % (42.8-82.8); PLATELET COUNT 234 K/MM3 (134-434); RBC 4.83 M/mm3 (3.60-5.2); WHITE BLOOD COUNT 8.8 K/mm3 (4.0-10.0)
[2019-09-03 08:46] LABS: BLOOD UREA NITROGEN 9.3 mg/dL (7-18); CREATININE 0.8 mg/dL (0.55-1.3)
[2019-09-03 08:47] LABS: ALBUMIN 2.9 g/dl (3.4-5.0); BILIRUBIN,TOTAL 0.6 mg/dL (0.2-1); CALCIUM 8.6 mg/dL (8.5-10.1); POTASSIUM 3.8 mmol/L (3.5-5.1); TOT PROT 7.2 g/dl (6.4-8.2)
--- NOTE | 2019-09-03 09:29 | PN ---
Progress Note, Physician Chief Complaint: Nausea/Vomiting Dizziness History of Present Illness: Previous notes and events reviewed awake and alert NAD complains of dizziness sts having intermittent episodes of nausea, denies vomiting ambulating with PT this morning UC prelim positive - Current Medication List Current Medications: Active Medications Buspirone HCl (Buspar -) 30 mg PO BID [facility] Last Admin: 09/02/19 23:18 Dose: 30 mg Documented by: Clopidogrel Bisulfate (Plavix -) 75 mg PO DAILY [facility] Gabapentin (Neurontin -) 300 mg PO TID [facility] Last Admin: 09/02/19 22:04 Dose: 300 mg Documented by: Heparin Sodium (Porcine) (Heparin -) 5,000 unit SQ BID [facility] Last Admin: 09/02/19 22:05 Dose: 5,000 unit Documented by: Famotidine/Sodium Chloride (Pepcid 20 Mg Premixed Ivpb -) 20 mg in 50 mls @ 100 mls/hr IVPB DAILY [facility] Sodium Chloride (Normal Saline -) 1,000 mls @ 75 mls/hr IV ASDIR [facility] Last Admin: 09/02/19 22:05 Dose: 75 mls/hr Documented by: Meclizine HCl (Antivert -) 25 mg PO Q12H PRN PRN Reason: NAUSEA Nebivolol (Bystolic -) 5 mg PO DAILY [facility] Non-Formulary Medication (Cyclosporine [Restasis]) 1 each OP BID [facility] Ondansetron HCl (Zofran Injection) 4 mg IVPUSH Q4H PRN PRN Reason: NAUSEA AND/OR VOMITING Pregabalin (Lyrica -) 100 mg PO TID [facility] Last Admin: 09/02/19 22:04 Dose: 100 mg Documented by: Sertraline HCl (Zoloft -) 100 mg PO DAILY [facility] - Objective Vital Signs: Vital Signs Temperature 98.0 F 09/03/19 06:00 Pulse Rate 67 09/03/19 06:00 Respiratory Rate 18 09/03/19 06:00 Blood Pressure 138/76 09/03/19 06:00 O2 Sat by Pulse Oximetry (%) 100 09/02/19 20:50 Constitutional: Yes: No Distress, Calm Eyes: Yes: Conjunctiva Clear HENT: Yes: Atraumatic Cardiovascular: Yes: Regular Rate and Rhythm Respiratory: Yes: Regular, Diminished Gastrointestinal: Yes: Normal Bowel Sounds, Soft, Abdomen, Obese, Tenderness ( ruq) Genitourinary: Yes: Incontinence Musculoskeletal: Yes: Muscle Weakness Extremities: Yes: WNL Edema: No Neurological: Yes: Alert Psychiatric: Yes: Alert Labs: CBC, BMP 09/03/19 07:27 09/03/19 07:27 INR, PTT INR 1.03 (0.83-1.09) 09/02/19 11:03 Microbiology 09/02/19 12:30 Urine - Urine Clean Catch Urine Culture - Preliminary Lactose Fermenting Neg Bacilli Pending Organism Problem List - Problems (1) Abdominal pain Assessment/Plan: CTAP shows no acute pathology within the abdomenor pelvis or significant change since 08/15/19 pain control GI consult Famotidine daily Zofran prn for nausea clear liquid diet Code(s): R10.9 - UNSPECIFIED ABDOMINAL PAIN Qualifiers: Abdominal location: right lower quadrant Qualified Code(s): R10.31 - Right lower quadrant pain (2) Hyperkalemia Assessment/Plan: resolved K 3.8 monitor electrolyte daily Code(s): E87.5 - HYPERKALEMIA (3) Nausea & vomiting Assessment/Plan: CTAP shows no acute pathology within the abdomenor pelvis or significant change since 08/15/19 pain control GI consult Famotidine daily Zofran prn for nausea clear liquid diet Code(s): R11.2 - NAUSEA WITH VOMITING, UNSPECIFIED Qualifiers: Vomiting type: unspecified Vomiting Intractability: unspecified Qualified Code(s): R11.2 - Nausea with vomiting, unspecified (4) CAD (coronary artery disease) Assessment/Plan: Plavix Code(s): I25.10 - ATHSCL HEART DISEASE OF [place] CORONARY ARTERY W/O ANG PCTRS (5) GERD (gastroesophageal reflux disease) Assessment/Plan: Famotidine daily GI consult Code(s): K21.9 - GASTRO-ESOPHAGEAL REFLUX DISEASE WITHOUT ESOPHAGITIS (6) Hypertension Assessment/Plan: Bystolic Code(s): I10 - ESSENTIAL (PRIMARY) HYPERTENSION (7) UTI (urinary tract infection) Assessment/Plan: UA shows trace leuks UC prelim positive afebrile no leukocytosis Code(s): N39.0 - URINARY TRACT INFECTION, SITE NOT SPECIFIED Qualifiers: Urinary tract infection type: acute cystitis Hematuria presence: without hematuria Qualified Code(s): N30.00 - Acute cystitis without hematuria (8) Dizziness Assessment/Plan: Meclizine Neurology consult Code(s): R42 - DIZZINESS AND GIDDINESS (9) Depression Assessment/Plan: ZoloftRhett Code(s): F32.9 - MAJOR DEPRESSIVE DISORDER, SINGLE EPISODE, UNSPECIFIED (10) History of CVA (cerebrovascular accident) Assessment/Plan: Plavix Code(s): Z86.73 - PRSNL HX OF TIA (TIA), AND CEREB INFRC W/O RESID DEFICITS (11) Neuropathic pain Assessment/Plan: Neurontin Code(s): M79.2 - NEURALGIA AND NEURITIS, UNSPECIFIED Assessment/Plan see problem list dvt ppx
[2019-09-03] MEDS ORDERED: PATIENT'S OWN MEDICATION (NON-FORMULARY) (Sertraline Hcl [Sertraline Hcl] 100 MG) PO SCH (10:00)
[2019-09-03] MEDS: SERTRALINE HCL 50 MG TABLET (FP) PO SCH (11:13)
[2019-09-03] MEDS: HEPARIN NA (PORCINE) 5,000 UNITS/ML 1ML VIAL SQ SCH ×2 (11:13→21:38)
[2019-09-03] MEDS: FAMOTIDINE 20 MG/50 ML IVPB 20 MG/50 ML MG IVPB SCH (11:14)
[2019-09-03] MEDS: busPIRone HCL 10 MG TABLET (FP) PO SCH ×2 (11:14→21:38)
[2019-09-03] MEDS: CLOPIDOGREL BISULFATE 75 MG TABLET (FP) PO SCH (11:14)
[2019-09-03] MEDS: NEBIVOLOL 5 MG TABLET (FP) PO SCH (11:15)
[2019-09-03] MEDS: GABAPENTIN 300 MG CAPSULE PO SCH ×3 (11:48→21:38)
[2019-09-03] MEDS: PREGABALIN 50 MG CAPSULE PO SCH ×2 (11:48→14:19)
[2019-09-03] MEDS: SODIUM CHLORIDE 1,000 ML IV SCH (12:53)
[2019-09-03 13:27] VITALS: BMI 48.6
--- NOTE | 2019-09-03 14:02 | EKG ---
Test Reason : Blood Pressure : / mmHG Vent. Rate : 067 BPM Atrial Rate : 067 BPM P-R Int : 162 ms QRS Dur : 080 ms QT Int : 434 ms P-R-T Axes : 044 002 043 degrees QTc Int : 458 ms NORMAL SINUS RHYTHM NORMAL ECG WHEN COMPARED WITH ECG OF 16-AUG-2019 11:13, NO SIGNIFICANT CHANGE WAS FOUND Confirmed by FRANCOIS SAGE MD ([id number]) on 09/03/2019 2:01:25 PM Referred By: Confirmed By:FRANCOIS SAGE MD
[2019-09-03] MEDS ORDERED: ACETAMINOPHEN 1000 MG/100 ML VIAL (NON FORMULARY) IVPB PRN (14:17)
--- NOTE | 2019-09-03 15:08 | PN ---
Progress Note (short form) - Note Progress Note: See note from 06/18. Patient a patient of Dr. Gutierrez. communicated to Dr. Gutierrez. he will see patient.
--- NOTE | 2019-09-03 15:10 | PN ---
Progress Note (short form) - Note Progress Note: ID consult dictated recurrent abdominal pain/nausea/diarrhea no fevers no dysuria doubt UTI-asymptomatic bacteriura suggest GI evaluation no need for antibiotics at this time Problem List - Problems (1) Abdominal pain Code(s): R10.9 - UNSPECIFIED ABDOMINAL PAIN Qualifiers: Abdominal location: right lower quadrant Qualified Code(s): R10.31 - Right lower quadrant pain (2) Asymptomatic bacteriuria Code(s): R82.71 - BACTERIURIA
--- NOTE | 2019-09-03 15:54 | CONS ---
INFECTIOUS DISEASE CONSULTATION DATE OF CONSULTATION: DATE OF DICTATION: 09/03/2019 REQUESTING PHYSICIAN: Amber Barnes MD This is an 83-year-old woman. She was just in the hospital August 15 to the . She has a history of a gastric sleeve and multiple abdominal surgeries including appendectomy and cholecystectomy in the past, who was admitted on August 15 with nausea, vomiting. Per that admission, she had some dysuria and urinary frequency. She was treated for a UTI with ceftriaxone and subsequently discharged home on Ceftin. She now returns saying that she had severe nausea, vomiting, and diarrhea for the last 2 days at her house. Per the ER note, she complained of diffuse pain. I am asked to see her for possible UTI. She denies any dysuria. She has had no fevers. Her nausea, vomiting, and diarrhea have all resolved today. She notes she still has some residual mid-epigastric discomfort. She reports that for the past month she has had similar mid-epigastric discomfort, and it has been related to eating eggs. PAST MEDICAL HISTORY: Notable for a history of gastric sleeve 20 years ago. She has a history of appendectomy, ventral hernia repair, cholecystectomy in the past. Her medical history is notable for CVA, TIA, hypertension, GERD, depression, and obesity. ALLERGIES: She is allergic to ASPIRIN and PENICILLIN. MEDICATIONS AT HOME: Include sertraline, Lyrica, omeprazole, Bystolic, Antivert, gabapentin, Restasis, Plavix, BuSpar. SOCIAL HISTORY: She lives at home with her daughter. She denies any cigarette, alcohol, or substance use. REVIEW OF SYSTEMS: She reports that she has had mid-epigastric discomfort for at least the last month, and looking through the computer, it appears that she has had several such episodes, at least dating back to May. PHYSICAL EXAMINATION: General: She is an elderly woman in no acute distress. Vital Signs: Temperature is 97.6, pulse is 74, blood pressure 115/59, respiratory rate is 18. She weighs 98 kg. HEENT: She is normocephalic. Her eyes are anicteric. Neck: Supple. Lungs: Clear to auscultation. Abdomen: Soft. She has a large incision vertically in the midline. She has some mid-epigastric discomfort. She has no right lower quadrant, suprapubic, or left lower quadrant pain. Extremities: Without edema. She has evidence of a left total knee replacement incision. LABORATORY DATA: Her labs are notable for a white count of 8.8, hemoglobin 11.4, platelets are 234. BUN is 9 and creatinine 0.8. LFTs are normal. Urinalysis has trace leukocytes. She had a CAT scan done in the emergency room. She had a prior one done in August as well, that shows no acute pathology in the abdomen or pelvis. She has evidence of some interstitial lung changes. She has a hiatal hernia. She has diverticulosis without diverticulitis. In summary, this is an elderly woman admitted with recurrent nausea, vomiting, diarrhea, mid-epigastric pain. I do not suspect she has a UTI at this time. Would not start antibiotics. She appears to have had this over the last 1-2 months. I would suggest she be followed up by her tape librarian for further evaluation. No role for antibiotics at this time. KAROLINA TINSLEY M.D. [id number]
[2019-09-03] MEDS: AMINO ACIDS/PROTEIN HYDROLYS 30 ML LIQUID.PKT PO SCH (17:51)
--- NOTE | 2019-09-03 20:27 | CONSULT ---
Consult - text type - Consultation Consultation Note: NEUROLOGY CONSULTATION is greatly appreciated: Events reviewed. Patient examined. This 83 year old woman with a history of htn, bariatric surgery, and stroke (poorly defined by patient) is admitted for constipation and GI upset. 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 However, patient complains of dizziness when walking and unsteadiness even with walker. Refractory to meclizine. Confusion noted on admission. Patient complains of diffuse pain in both legs and episodic headaches. GP: No carotid bruits, slightly reduced neck range of motion, right shoulder bursitis, obese.In pull up diaper. Frequent coughing. Neurological: awake alert and cooperative, oriented to hospital (but not [facility]). August. No year. Postive glabella. Fluent speech in Malay. CN: Full rhodes, full EOMs without nystagmus, no facial weakness, gag okay Motor: no drift or tremor, no cogwheel rigidity, normal strength throughout, areflexic in legs, toes downgoing Coordination: no FTN dystaxia Sensation: reduced vibration to ankles Gait: deferred Impression: nonfocal neurological examination, sig for mild bilateral cerebral dysfunction (OMS,chronic). Reduced sensation in legs and absent ankle jerks suggests peripheral neuropathy or lumbosacral spinal stenosis. Dizziness likely represents chronic gait dysfunction probably on a multifactorial basis due to [employer] microvascular disease, spinal arthropathy and/or peripheral neuropathy. All will worsen with toxic metabolic encephalopathy (such as infection). Suggestions: Check B12, TSH, RPR, ESR, CRP, Repeat UA C and S. R/O infection as per Dr. Levy. Mobilize patient OO Bed to chair and check orthostatic BPs. DVT prophylaxis and SCD when in bed D/C meclizine (constipating and causes confusion) PT for gait assessment and training with walker Simplify gabapentinoids (D/C lyrica) clinical services assistant. Thank you very much, Renny Farooq MD
[2019-09-04] MEDS: SODIUM CHLORIDE 1,000 ML IV SCH (02:18)
[2019-09-04] MEDS: GABAPENTIN 300 MG CAPSULE PO SCH ×3 (06:20→22:56)
[2019-09-04 08:27] LABS: HEMATOCRIT 32.2 % (32.4-45.2); HEMOGLOBIN 10.8 GM/dL (10.7-15.3); MCH 24.1 pg (25.7-33.7); MCHC 33.5 g/dl (32.0-36.0); MEAN CELL VOLUME 72.1 fl (80-96); MEAN PLT VOLUME 7.9 fl (7.5-11.1); PLATELET COUNT 221 K/MM3 (134-434); RBC 4.47 M/mm3 (3.60-5.2); RDW 18.7 % (11.6-15.6); WHITE BLOOD COUNT 7.8 K/mm3 (4.0-10.0)
[2019-09-04] MEDS: AMINO ACIDS/PROTEIN HYDROLYS 30 ML LIQUID.PKT PO SCH ×2 (08:40→18:14)
[2019-09-04 08:54] LABS: ALBUMIN 2.6 g/dl (3.4-5.0); BLOOD UREA NITROGEN 11.4 mg/dL (7-18); CALCIUM 8.5 mg/dL (8.5-10.1); CREATININE 0.9 mg/dL (0.55-1.3); POTASSIUM 3.8 mmol/L (3.5-5.1); TOT PROT 6.7 g/dl (6.4-8.2)
[2019-09-04] MEDS ORDERED: PT OWN MED DRAWER 7, Y5N ONE (09:28)
[2019-09-04] MEDS: FAMOTIDINE 20 MG/50 ML IVPB 20 MG/50 ML MG IVPB SCH (09:31)
[2019-09-04] MEDS: NEBIVOLOL 5 MG TABLET (FP) PO SCH (09:32)
[2019-09-04] MEDS: busPIRone HCL 10 MG TABLET (FP) PO SCH ×2 (09:32→22:56)
[2019-09-04] MEDS: HEPARIN NA (PORCINE) 5,000 UNITS/ML 1ML VIAL SQ SCH ×2 (09:32→22:56)
[2019-09-04] MEDS: SERTRALINE HCL 50 MG TABLET (FP) PO SCH (09:33)
[2019-09-04] MEDS: CLOPIDOGREL BISULFATE 75 MG TABLET (FP) PO SCH (09:33)
[2019-09-04] MEDS: MULTIVITAMINS (DAILY MVI) TABLET (FP) PO SCH (09:33)
[2019-09-04] MEDS ORDERED: PANTOPRAZOLE 40 MG TABLET PO SCH (10:00)
--- NOTE | 2019-09-04 14:33 | PN ---
Progress Note, Physician Chief Complaint: dizziness abd pain History of Present Illness: 83 year old female with PMH HTN, obesity, CVA presents to the ED with n/v abd pain, and dizziness. being evaluated by neurology, ID, and GI. - Current Medication List Current Medications: Active Medications Amino Acids (Prosource No Carb Liquid Pkt) 30 ml PO BID@0800,1730 [facility] Last Admin: 09/04/19 08:40 Dose: 30 ml Documented by: Buspirone HCl (Buspar -) 30 mg PO BID [facility] Last Admin: 09/04/19 09:32 Dose: 30 mg Documented by: Clopidogrel Bisulfate (Plavix -) 75 mg PO DAILY [facility] Last Admin: 09/04/19 09:33 Dose: 75 mg Documented by: Gabapentin (Neurontin -) 300 mg PO TID [facility] Last Admin: 09/04/19 06:20 Dose: 300 mg Documented by: Heparin Sodium (Porcine) (Heparin -) 5,000 unit SQ BID [facility] Last Admin: 09/04/19 09:32 Dose: 5,000 unit Documented by: Famotidine/Sodium Chloride (Pepcid 20 Mg Premixed Ivpb -) 20 mg in 50 mls @ 100 mls/hr IVPB DAILY [facility] Last Admin: 09/04/19 09:31 Dose: 100 mls/hr Documented by: Multivitamins/Minerals/Vitamin C (Tab-A-Vit -) 1 tab PO DAILY [facility] Last Admin: 09/04/19 09:33 Dose: 1 tab Documented by: Nebivolol (Bystolic -) 5 mg PO DAILY [facility] Last Admin: 09/04/19 09:32 Dose: 5 mg Documented by: Non-Formulary Medication (Cyclosporine [Restasis]) 1 each OP BID [facility] Ondansetron HCl (Zofran Injection) 4 mg IVPUSH Q4H PRN PRN Reason: NAUSEA AND/OR VOMITING Sertraline HCl (Zoloft -) 100 mg PO DAILY [facility] Last Admin: 09/04/19 09:33 Dose: 100 mg Documented by: - Objective Vital Signs: Vital Signs Temperature 98.0 F 09/04/19 12:00 Pulse Rate 80 09/04/19 12:00 Respiratory Rate 18 09/04/19 06:00 Blood Pressure 110/60 09/04/19 12:00 O2 Sat by Pulse Oximetry (%) 95 09/04/19 09:00 Constitutional: Yes: Well Nourished, No Distress HENT: Yes: Atraumatic, Normocephalic Neck: Yes: Supple Cardiovascular: Yes: Regular Rate and Rhythm Respiratory: Yes: Regular, CTA Bilaterally Gastrointestinal: Yes: Normal Bowel Sounds, Soft Genitourinary: Yes: WNL Neurological: Yes: Alert, Oriented, Other (lao speaking) Labs: CBC, BMP 09/04/19 07:54 09/04/19 07:54 INR, PTT INR 1.03 (0.83-1.09) 09/02/19 11:03 Problem List - Problems (1) UTI (urinary tract infection) Assessment/Plan: ID consult appreciated urine esbl no antbx dc planning for saturday home if tolerates upgraded diet Code(s): N39.0 - URINARY TRACT INFECTION, SITE NOT SPECIFIED Qualifiers: Urinary tract infection type: acute cystitis Hematuria presence: without hematuria Qualified Code(s): N30.00 - Acute cystitis without hematuria (2) Abdominal pain Assessment/Plan: GI consult IVF dc IV antiemetics, pepcid ct abd neg for acute pathology hx gerd check stool Code(s): R10.9 - UNSPECIFIED ABDOMINAL PAIN Qualifiers: Abdominal location: right lower quadrant Qualified Code(s): R10.31 - Right lower quadrant pain (3) Hyperkalemia Assessment/Plan: resolved Code(s): E87.5 - HYPERKALEMIA (4) Nausea & vomiting Assessment/Plan: antiemetic prn Code(s): R11.2 - NAUSEA WITH VOMITING, UNSPECIFIED Qualifiers: Vomiting type: unspecified Vomiting Intractability: unspecified Qualified Code(s): R11.2 - Nausea with vomiting, unspecified (5) CAD (coronary artery disease) Assessment/Plan: cont home meds Code(s): I25.10 - ATHSCL HEART DISEASE OF [place] CORONARY ARTERY W/O ANG PCTRS (6) GERD (gastroesophageal reflux disease) Assessment/Plan: po omeprazole on hold, IV pepcid Code(s): K21.9 - GASTRO-ESOPHAGEAL REFLUX DISEASE WITHOUT ESOPHAGITIS (7) History of CVA (cerebrovascular accident) Assessment/Plan: cont home meds Code(s): Z86.73 - PRSNL HX OF TIA (TIA), AND CEREB INFRC W/O RESID DEFICITS (8) Hypertension Assessment/Plan: cont home meds Code(s): I10 - ESSENTIAL (PRIMARY) HYPERTENSION (9) Neuropathic pain Assessment/Plan: cont home meds Code(s): M79.2 - NEURALGIA AND NEURITIS, UNSPECIFIED (10) Obesity Assessment/Plan: corporate controller referral Code(s): E66.9 - OBESITY, UNSPECIFIED Qualifiers: Obesity classification: adult class 3 (BMI >= 40) (11) Pulmonary nodule Assessment/Plan: f/u outpatient Code(s): R91.1 - SOLITARY PULMONARY NODULE
--- NOTE | 2019-09-04 16:54 | CON.GI ---
Consult - History of Present Illness History of Present Illness: 83 year old mexican speaking female with PMH htn, cva, obesity, history of multiple abd surgeries (appy, amy, gastric sleeve 20 yrs ago, abdominoplasty), c/o n/v/d x1 day. she has RLQ and epigastric pain, +relief from zofran, pepcid, IV tylenol. she had large amount of diarrhea yesterday loose watery, and no bm yet today. she reports vomiting last night. she states she feels weak, she has not been eating/drinking like herself. she denies fevers, chills, denies chest pains pressure. reports chronic back pain. Ct revealed no acute pathology Today she had a large bowel movement after breakfast. After the bowel movement the abdominal pain resolved. At present the patient is asymptomatic. - Past Medical History [employer]: Yes: CVA, TIA Cardio/Vascular: Yes: HTN Pulmonary: Yes: Bronchitis. No: Asthma, Cancer, COPD, O2 Dependent, Pneumonia, Previously Intubated, Pulmonary Embolus, Pulmonary Fibrosis, Sleep Apnea Gastrointestinal: Yes: GERD ...: No Psych: Yes: Depression Musculoskeletal: Yes: Chronic low back pain Endocrine: Yes: Other (obesity) - Past Surgical History Past Surgical History: Yes: Appendectomy (, ventral hernia repair), Bariatric Surgery (gastric sleeve surgery (20 years ago per the patient)), Cholecystectomy, Hernia Repair (ventral) - Alcohol/Substance Use Hx Alcohol Use: No History of Substance Use: reports: None - Smoking History Smoking history: Never smoked Have you smoked in the past 12 months: No Aproximately how many cigarettes per day: 0 - Social History Usual Living Arrangement: Alone ADL: Family Assistance History of Recent Travel: No Home Medications - Allergies Allergies/Adverse Reactions: Allergies Allergy/AdvReac Type Severity Reaction Status Date / Time aspirin Allergy Intermediate Rash Verified 08/15/19 15:55 Penicillins AdvReac Severe Vomiting Verified 08/15/19 15:56 - Home Medications Home Medications: Ambulatory Orders Nebivolol [Bystolic -] 5 mg PO DAILY 05/11/16 Omeprazole 40 mg PO DAILY 05/13/16 Clopidogrel Bisulfate [Plavix] 75 mg PO DAILY 03/19/18 Gabapentin 300 mg PO TID 03/19/18 Sertraline HCl 100 mg PO DAILY 02/13/19 Acetaminophen [Mapap] 1,000 mg PO QID PRN 06/01/19 Buspirone HCl [Buspar -] 30 mg PO BID 06/01/19 Cyclosporine [Restasis] 1 each OP BID 06/01/19 Meclizine HCl [Antivert -] 25 mg PO BID PRN 06/01/19 Pregabalin [Lyrica] 100 mg PO TID 06/01/19 Cefuroxime Axetil [Ceftin -] 500 mg PO Q12H #14 tablet 06/03/19 Cefuroxime Axetil [Ceftin -] 500 mg PO Q12H #10 tablet 08/19/19 Physical Exam-GI Vital Signs: Vital Signs Temperature 98.0 F 09/04/19 12:00 Pulse Rate 80 09/04/19 12:00 Respiratory Rate 18 09/04/19 06:00 Blood Pressure 110/60 09/04/19 12:00 O2 Sat by Pulse Oximetry (%) 95 09/04/19 09:00 Constitutional: Yes: Well Nourished Eyes: Yes: Conjunctiva Clear HENT: Yes: Atraumatic Neck: Yes: Supple Cardiovascular: Yes: Regular Rate and Rhythm Respiratory: Yes: CTA Bilaterally ...Palpate: Yes: Soft. No: Firm/Rigid, Guarding, Hepatomegaly, Mass, Pulsatile Mass, Splenomegaly, Tenderness Labs: CBC, BMP 09/04/19 07:54 09/04/19 07:54 INR, PTT INR 1.03 (0.83-1.09) 09/02/19 11:03 Problem List - Problems (1) Abdominal pain Assessment/Plan: resolved most likely secondary to constipation R> maintain on Miralax 17 grams daily lactose free diet made aware to follow up Code(s): R10.9 - UNSPECIFIED ABDOMINAL PAIN Qualifiers: Abdominal location: right lower quadrant Qualified Code(s): R10.31 - Right lower quadrant pain
--- NOTE | 2019-09-04 18:22 | PN ---
Progress Note (short form) - Note Progress Note: abdominal pain resolved no dysuria Vital Signs Period Temp Pulse Resp BP Sys/Thakkar Pulse Ox Last 24 Hr 98.0 F-98.5 F 80-85 18-19 103-110/55-62 95-95 cor-rrr lungs clear abd soft,nt ext no edema CBC, BMP 09/04/19 07:54 09/04/19 07:54 Microbiology 09/02/19 12:30 Urine - Urine Clean Catch Urine Culture - Final Klebsiella Pneumoniae - Esbl Group D Strep Or Entero Coccus a/p doubt UTI-asymptomatic bacteriura-no need to treat contact isolation for kleb esbl Problem List - Problems (1) Abdominal pain Code(s): R10.9 - UNSPECIFIED ABDOMINAL PAIN Qualifiers: Abdominal location: right lower quadrant Qualified Code(s): R10.31 - Right lower quadrant pain (2) Asymptomatic bacteriuria Code(s): R82.71 - BACTERIURIA
[2019-09-05] MEDS: GABAPENTIN 300 MG CAPSULE PO SCH ×3 (06:14→21:07)
[2019-09-05] MEDS ORDERED: PT OWN MED DRAWER 7, Y5N ONE ×2 (08:51→21:05)
[2019-09-05] MEDS: AMINO ACIDS/PROTEIN HYDROLYS 30 ML LIQUID.PKT PO SCH ×2 (08:53→17:46)
[2019-09-05] MEDS: NEBIVOLOL 5 MG TABLET (FP) PO SCH (08:59)
[2019-09-05] MEDS: busPIRone HCL 10 MG TABLET (FP) PO SCH ×2 (08:59→21:07)
[2019-09-05] MEDS: SERTRALINE HCL 50 MG TABLET (FP) PO SCH (08:59)
[2019-09-05] MEDS: MULTIVITAMINS (DAILY MVI) TABLET (FP) PO SCH (08:59)
[2019-09-05] MEDS: CLOPIDOGREL BISULFATE 75 MG TABLET (FP) PO SCH (08:59)
[2019-09-05] MEDS: FAMOTIDINE 20 MG/50 ML IVPB 20 MG/50 ML MG IVPB SCH (08:59)
[2019-09-05] MEDS: HEPARIN NA (PORCINE) 5,000 UNITS/ML 1ML VIAL SQ SCH ×2 (09:00→21:07)
--- NOTE | 2019-09-05 10:20 | PN ---
Progress Note, Physician - Current Medication List Current Medications: Active Medications Amino Acids (Prosource No Carb Liquid Pkt) 30 ml PO BID@0800,1730 [facility] Last Admin: 09/05/19 08:53 Dose: 30 ml Documented by: Buspirone HCl (Buspar -) 30 mg PO BID [facility] Last Admin: 09/05/19 08:59 Dose: 30 mg Documented by: Clopidogrel Bisulfate (Plavix -) 75 mg PO DAILY [facility] Last Admin: 09/05/19 08:59 Dose: 75 mg Documented by: Gabapentin (Neurontin -) 300 mg PO TID [facility] Last Admin: 09/05/19 06:14 Dose: 300 mg Documented by: Heparin Sodium (Porcine) (Heparin -) 5,000 unit SQ BID [facility] Last Admin: 09/05/19 09:00 Dose: 5,000 unit Documented by: Famotidine/Sodium Chloride (Pepcid 20 Mg Premixed Ivpb -) 20 mg in 50 mls @ 100 mls/hr IVPB DAILY [facility] Last Admin: 09/05/19 08:59 Dose: 100 mls/hr Documented by: Multivitamins/Minerals/Vitamin C (Tab-A-Vit -) 1 tab PO DAILY [facility] Last Admin: 09/05/19 08:59 Dose: 1 tab Documented by: Nebivolol (Bystolic -) 5 mg PO DAILY [facility] Last Admin: 09/05/19 08:59 Dose: 5 mg Documented by: Non-Formulary Medication (Cyclosporine [Restasis]) 1 each OP BID [facility] Ondansetron HCl (Zofran Injection) 4 mg IVPUSH Q4H PRN PRN Reason: NAUSEA AND/OR VOMITING Sertraline HCl (Zoloft -) 100 mg PO DAILY [facility] Last Admin: 09/05/19 08:59 Dose: 100 mg Documented by: - Objective Vital Signs: Vital Signs Temperature 97.4 F L 09/05/19 06:00 Pulse Rate 69 09/05/19 10:13 Respiratory Rate 16 09/05/19 10:13 Blood Pressure 127/62 09/05/19 10:13 O2 Sat by Pulse Oximetry (%) 95 09/05/19 09:00 Cardiovascular: Yes: S1, S2 Respiratory: Yes: Regular, CTA Bilaterally Gastrointestinal: Yes: Normal Bowel Sounds, Soft Neurological: Yes: Alert, Oriented, Unsteady Gait Labs: CBC, BMP 09/04/19 07:54 09/04/19 07:54 INR, PTT INR 1.03 (0.83-1.09) 09/02/19 11:03 Assessment/Plan - Problems (1) UTI (urinary tract infection) Assessment/Plan: ID consult appreciated urine esbl no antbx Code(s): N39.0 - URINARY TRACT INFECTION, SITE NOT SPECIFIED Qualifiers: Urinary tract infection type: acute cystitis Hematuria presence: without hematuria Qualified Code(s): N30.00 - Acute cystitis without hematuria (2) Abdominal pain Assessment/Plan: GI consult noted Resolved IVF dc IV antiemetics, pepcid ct abd neg for acute pathology hx gerd check stool Code(s): R10.9 - UNSPECIFIED ABDOMINAL PAIN Qualifiers: Abdominal location: right lower quadrant Qualified Code(s): R10.31 - Right lower quadrant pain (3) Hyperkalemia Assessment/Plan: resolved Code(s): E87.5 - HYPERKALEMIA (4) Nausea & vomiting Assessment/Plan: antiemetic prn Code(s): R11.2 - NAUSEA WITH VOMITING, UNSPECIFIED Qualifiers: Vomiting type: unspecified Vomiting Intractability: unspecified Qualified Code(s): R11.2 - Nausea with vomiting, unspecified (5) CAD (coronary artery disease) Assessment/Plan: cont home meds Code(s): I25.10 - ATHSCL HEART DISEASE OF [place] CORONARY ARTERY W/O ANG PCTRS (6) GERD (gastroesophageal reflux disease) Assessment/Plan: po omeprazole on hold, IV pepcid Code(s): K21.9 - GASTRO-ESOPHAGEAL REFLUX DISEASE WITHOUT ESOPHAGITIS (7) History of CVA (cerebrovascular accident) Assessment/Plan: cont home meds dc planning may need snf see pt note Code(s): Z86.73 - PRSNL HX OF TIA (TIA), AND CEREB INFRC W/O RESID DEFICITS (8) Hypertension Assessment/Plan: cont home meds Code(s): I10 - ESSENTIAL (PRIMARY) HYPERTENSION (9) Neuropathic pain Assessment/Plan: cont home meds Code(s): M79.2 - NEURALGIA AND NEURITIS, UNSPECIFIED (10) Obesity Assessment/Plan: territory sales consultant referral Code(s): E66.9 - OBESITY, UNSPECIFIED Qualifiers: Obesity classification: adult class 3 (BMI >= 40) (11) Pulmonary nodule Assessment/Plan: f/u outpatient Code(s): R91.1 - SOLITARY PULMONARY NODULE
--- NOTE | 2019-09-06 00:05 | HOSP ---
Subjective - Review of Symptoms Events since last encounter: Hospitalist Encounter Was notified by the primary RN that the patient had a fall. Was asked to assess. Arrived at bedside, patient is awake, alert and oriented. Patient is Slovak speaking [employer] used name- Cathleen, #[id number]. Patient reports while attempt ing to use the bedside commode, her hand missed the rail and she fell onto her right side. Patient denies head injury or LOC, however patient reports having pain to her right mid lateral cephalic aspect. Patient also reports right hand and right shoulder pain. Patient examined at bedside- see EMR. Patient is on AC for DVTppx, and antiplatelet as well. Orders placed for Head CT, Xray of R-hand/wrist, R- Shoulder Order placed for Tylenol, icepack, Fall Precautions- Bedrest, patient advised not to get OOB, she verbalized understanding d/w RN, who verbalized understanding Musculoskeletal: Yes: Decreased ROM, Extremity Pain, Joint Pain Neurological: Yes: Other (headache) Physical Examination Vital Signs: Vital Signs Temperature 98.4 F 09/05/19 19:00 Pulse Rate 76 09/05/19 19:00 Respiratory Rate 18 09/05/19 19:00 Blood Pressure 128/67 09/05/19 19:00 O2 Sat by Pulse Oximetry (%) 95 09/05/19 20:42 Constitutional: Yes: Mild Distress, Obese Eyes: Yes: Conjunctiva Clear, EOM Intact, PERRL HENT: Yes: Atraumatic, Normocephalic, Other (TTP to right lateral cephalic aspect) Neck: Yes: WNL, Supple, Trachea Midline Cardiovascular: Yes: Regular Rate and Rhythm, S1, S2 Respiratory: Yes: WNL, Regular, CTA Bilaterally Gastrointestinal: Yes: WNL, Normal Bowel Sounds, Soft, Abdomen, Obese ...Rectal Exam: Yes: Deferred Renal/: Yes: WNL Breast(s): Yes: WNL Musculoskeletal: Yes: Other (right shoulder- TTP, +LROM, right hand- TTP, +FROM) Edema: No Peripheral Pulses WNL: Yes Integumentary: Yes: Bruising (right hand- dorsal aspect), Erythema (right hand) Neurological: Yes: WNL, Alert, Oriented, Cran Nerves II-XII Intact ...Motor Strength: LUE (5/5), LLE (5/5), RUE (4/5), RLE (5/5) Psychiatric: Yes: WNL, Alert, Oriented Labs: CBC, BMP 09/04/19 07:54 09/04/19 07:54 Hospitalist Encounter Outcome: Head CT preliminary read- moderate atrophy, no ICH Xrays-no fx, no dislocation Will continue to monitor
[2019-09-06] MEDS ORDERED: ACETAMINOPHEN 325 MG TABLET (FP) PO ONE (00:50)
--- NOTE | 2019-09-06 00:59 | FALL ---
Fall Exam - Event Witnessed fall: Yes Location of Fall: Patient Room Fall from: Commode - Pre-Fall Mental Status: Alert, Oriented, Cooperative Current Medications: Current Medications Generic Name Dose Route Start Last Admin Trade Name Lloyd PRN Reason Stop Dose Admin Acetaminophen 650 mg 09/06/19 00:50 Tylenol - PO 09/06/19 00:51 ONCE ONE Amino Acids 30 ml 09/03/19 17:30 09/05/19 17:46 Prosource No Carb Liquid Pkt PO 30 ml BID@0800,1730 [facility] Administration Buspirone HCl 30 mg 09/02/19 22:00 09/05/19 21:07 Buspar - PO 30 mg BID [facility] Administration Clopidogrel Bisulfate 75 mg 09/03/19 10:00 09/05/19 08:59 Plavix - PO 75 mg DAILY [facility] Administration Gabapentin 300 mg 09/02/19 22:00 09/05/19 21:07 Neurontin - PO 300 mg TID [facility] Administration Heparin Sodium (Porcine) 5,000 unit 09/02/19 22:00 09/05/19 21:07 Heparin - SQ 5,000 unit BID [facility] Administration Famotidine/Sodium Chloride 20 mg in 50 mls @ 100 mls/hr 09/03/19 10:00 09/05/19 08:59 Pepcid 20 Mg Premixed Ivpb - IVPB 100 mls/hr DAILY [facility] Administration Multivitamins/Minerals/Vitamin C 1 tab 09/04/19 10:00 09/05/19 08:59 Tab-A-Vit - PO 1 tab DAILY [facility] Administration Nebivolol 5 mg 09/03/19 10:00 09/05/19 08:59 Bystolic - PO 5 mg DAILY [facility] Administration Non-Formulary Medication 1 each 09/02/19 22:00 Cyclosporine [Restasis] OP BID [facility] Ondansetron HCl 4 mg 09/02/19 16:33 Zofran Injection IVPUSH Q4H PRN NAUSEA AND/OR VOMITING Sertraline HCl 100 mg 09/03/19 10:00 09/05/19 08:59 Zoloft - PO 100 mg DAILY [facility] Administration - Post-Fall Patient Outcome: Pain Only, Abrasion/Bruise Exam Findings: Patient is AAOx3, Head- TN to right lateral aspect, Normocephalic, Eyes- PERRL, +EOMIs, Heart- RRR, S1,S2, Lungs-CTAB, Abdomen- Obese, Soft, BS present, Hip/Pelvis- non-tender, no shortening of lower extremities. Musculoskeletal- R- Shoulder TTP, LROM no obvious deformity, L- shoulder- nontender, FROM. B/L LE- nontender, FROM. Treatment: Analgesia, Ice Pack Vital Signs: Vital Signs Temperature 97.6 F 09/05/19 23:55 Pulse Rate 70 09/05/19 23:55 Respiratory Rate 18 09/05/19 23:55 Blood Pressure 147/75 09/05/19 23:55 O2 Sat by Pulse Oximetry (%) 95 09/05/19 20:42 LOC Post-Fall: Unchanged, Awake, Alert, Oriented Identify factors for HIGH RISK for Head Injury: Pt on anticoagulant
[2019-09-06] MEDS: GABAPENTIN 300 MG CAPSULE PO SCH ×3 (05:44→21:34)
[2019-09-06] MEDS: AMINO ACIDS/PROTEIN HYDROLYS 30 ML LIQUID.PKT PO SCH ×2 (08:41→16:36)
[2019-09-06] MEDS: SERTRALINE HCL 50 MG TABLET (FP) PO SCH (10:22)
[2019-09-06] MEDS: MULTIVITAMINS (DAILY MVI) TABLET (FP) PO SCH (10:22)
[2019-09-06] MEDS: busPIRone HCL 10 MG TABLET (FP) PO SCH ×2 (10:22→21:33)
[2019-09-06] MEDS: CLOPIDOGREL BISULFATE 75 MG TABLET (FP) PO SCH (10:23)
[2019-09-06] MEDS: NEBIVOLOL 5 MG TABLET (FP) PO SCH (10:23)
[2019-09-06] MEDS: HEPARIN NA (PORCINE) 5,000 UNITS/ML 1ML VIAL SQ SCH ×2 (10:23→21:33)
[2019-09-06] MEDS: FAMOTIDINE 20 MG/50 ML IVPB 20 MG/50 ML MG IVPB SCH (10:50)
--- NOTE | 2019-09-06 11:23 | PN ---
Progress Note, Physician - Current Medication List Current Medications: Active Medications Amino Acids (Prosource No Carb Liquid Pkt) 30 ml PO BID@0800,1730 [facility] Last Admin: 09/06/19 08:41 Dose: 30 ml Documented by: Buspirone HCl (Buspar -) 30 mg PO BID [facility] Last Admin: 09/06/19 10:22 Dose: 30 mg Documented by: Clopidogrel Bisulfate (Plavix -) 75 mg PO DAILY [facility] Last Admin: 09/06/19 10:23 Dose: 75 mg Documented by: Gabapentin (Neurontin -) 300 mg PO TID [facility] Last Admin: 09/06/19 05:44 Dose: 300 mg Documented by: Heparin Sodium (Porcine) (Heparin -) 5,000 unit SQ BID [facility] Last Admin: 09/06/19 10:23 Dose: 5,000 unit Documented by: Famotidine/Sodium Chloride (Pepcid 20 Mg Premixed Ivpb -) 20 mg in 50 mls @ 100 mls/hr IVPB DAILY [facility] Last Admin: 09/05/19 08:59 Dose: 100 mls/hr Documented by: Multivitamins/Minerals/Vitamin C (Tab-A-Vit -) 1 tab PO DAILY [facility] Last Admin: 09/06/19 10:22 Dose: 1 tab Documented by: Nebivolol (Bystolic -) 5 mg PO DAILY [facility] Last Admin: 09/06/19 10:23 Dose: 5 mg Documented by: Non-Formulary Medication (Cyclosporine [Restasis]) 1 each OP BID [facility] Ondansetron HCl (Zofran Injection) 4 mg IVPUSH Q4H PRN PRN Reason: NAUSEA AND/OR VOMITING Sertraline HCl (Zoloft -) 100 mg PO DAILY [facility] Last Admin: 09/06/19 10:22 Dose: 100 mg Documented by: - Objective Vital Signs: Vital Signs Temperature 97.8 F 09/06/19 07:48 Pulse Rate 60 09/06/19 09:48 Respiratory Rate 20 09/06/19 09:48 Blood Pressure 142/75 09/06/19 09:48 O2 Sat by Pulse Oximetry (%) 95 09/05/19 20:42 Cardiovascular: Yes: S1, S2 Respiratory: Yes: Regular, CTA Bilaterally Gastrointestinal: Yes: Normal Bowel Sounds, Soft Musculoskeletal: Yes: Joint Stiffness Neurological: Yes: Alert, Oriented Labs: CBC, BMP 09/04/19 07:54 09/04/19 07:54 INR, PTT INR 1.03 (0.83-1.09) 09/02/19 11:03 Assessment/Plan - Problems (1) UTI (urinary tract infection) Assessment/Plan: ID consult appreciated urine esbl no antbx Code(s): N39.0 - URINARY TRACT INFECTION, SITE NOT SPECIFIED Qualifiers: Urinary tract infection type: acute cystitis Hematuria presence: without hematuria Qualified Code(s): N30.00 - Acute cystitis without hematuria (2) Abdominal pain Assessment/Plan: GI consult noted Resolved IVF dc IV antiemetics, pepcid ct abd neg for acute pathology hx gerd check stool Code(s): R10.9 - UNSPECIFIED ABDOMINAL PAIN Qualifiers: Abdominal location: right lower quadrant Qualified Code(s): R10.31 - Right lower quadrant pain (3) Hyperkalemia Assessment/Plan: resolved Code(s): E87.5 - HYPERKALEMIA (4) Nausea & vomiting Assessment/Plan: antiemetic prn Code(s): R11.2 - NAUSEA WITH VOMITING, UNSPECIFIED Qualifiers: Vomiting type: unspecified Vomiting Intractability: unspecified Qualified Code(s): R11.2 - Nausea with vomiting, unspecified (5) CAD (coronary artery disease) Assessment/Plan: cont home meds Code(s): I25.10 - ATHSCL HEART DISEASE OF [place] CORONARY ARTERY W/O ANG PCTRS (6) GERD (gastroesophageal reflux disease) Assessment/Plan: po omeprazole on hold, IV pepcid Code(s): K21.9 - GASTRO-ESOPHAGEAL REFLUX DISEASE WITHOUT ESOPHAGITIS (7) History of CVA (cerebrovascular accident) Assessment/Plan: cont home meds dc planning may need snf see pt note Code(s): Z86.73 - PRSNL HX OF TIA (TIA), AND CEREB INFRC W/O RESID DEFICITS (8) Hypertension Assessment/Plan: cont home meds Code(s): I10 - ESSENTIAL (PRIMARY) HYPERTENSION (9) Neuropathic pain Assessment/Plan: cont home meds Code(s): M79.2 - NEURALGIA AND NEURITIS, UNSPECIFIED (10) Obesity Assessment/Plan: 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
[2019-09-06] MEDS ORDERED: PT OWN MED DRAWER 7, Y5N ONE (21:15)
[2019-09-07] MEDS: GABAPENTIN 300 MG CAPSULE PO SCH ×2 (05:51→14:05)
--- NOTE | 2019-09-07 08:33 | DS ---
Physical Examination Vital Signs: Vital Signs Temperature 97.7 F 09/07/19 06:00 Pulse Rate 66 09/07/19 06:00 Respiratory Rate 20 09/07/19 06:00 Blood Pressure 138/90 09/07/19 06:00 O2 Sat by Pulse Oximetry (%) 97 09/06/19 21:00 Cardiovascular: Yes: S1, S2 Respiratory: Yes: Regular, CTA Bilaterally Gastrointestinal: Yes: Normal Bowel Sounds, Soft Labs: CBC, BMP 09/04/19 07:54 09/04/19 07:54 Discharge Summary Problems reviewed: Yes Reason For Visit: VOMITING Current Active Problems Abdominal pain (Acute) Asymptomatic bacteriuria (Acute) Dizziness (Acute) Hyperkalemia (Acute) Nausea & vomiting (Acute) Hospital Course: - Problems (1) UTI (urinary tract infection) Assessment/Plan: ID consult appreciated urine esbl no antbx Code(s): N39.0 - URINARY TRACT INFECTION, SITE NOT SPECIFIED Qualifiers: Urinary tract infection type: acute cystitis Hematuria presence: without hematuria Qualified Code(s): N30.00 - Acute cystitis without hematuria (2) Abdominal pain Assessment/Plan: GI consult noted Resolved IVF dc IV antiemetics, pepcid ct abd neg for acute pathology hx gerd check stool Code(s): R10.9 - UNSPECIFIED ABDOMINAL PAIN Qualifiers: Abdominal location: right lower quadrant Qualified Code(s): R10.31 - Right lower quadrant pain (3) Hyperkalemia Assessment/Plan: resolved Code(s): E87.5 - HYPERKALEMIA (4) Nausea & vomiting Assessment/Plan: antiemetic prn Code(s): R11.2 - NAUSEA WITH VOMITING, UNSPECIFIED Qualifiers: Vomiting type: unspecified Vomiting Intractability: unspecified Qualified Code(s): R11.2 - Nausea with vomiting, unspecified (5) CAD (coronary artery disease) Assessment/Plan: cont home meds Code(s): I25.10 - ATHSCL HEART DISEASE OF [place] CORONARY ARTERY W/O ANG PCTRS (6) GERD (gastroesophageal reflux disease) Assessment/Plan: po omeprazole on hold, IV pepcid Code(s): K21.9 - GASTRO-ESOPHAGEAL REFLUX DISEASE WITHOUT ESOPHAGITIS (7) History of CVA (cerebrovascular accident) Assessment/Plan: cont home meds dc planning may need snf see pt note Code(s): Z86.73 - PRSNL HX OF TIA (TIA), AND CEREB INFRC W/O RESID DEFICITS (8) Hypertension Assessment/Plan: cont home meds Code(s): I10 - ESSENTIAL (PRIMARY) HYPERTENSION (9) Neuropathic pain Assessment/Plan: cont home meds Code(s): M79.2 - NEURALGIA AND NEURITIS, UNSPECIFIED (10) Obesity Assessment/Plan: sales 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 referral Code(s): E66.9 - OBESITY, UNSPECIFIED Qualifiers: Obesity classification: adult class 3 (BMI >= 40) (11) Pulmonary nodule Assessment/Plan: f/u outpatient Code(s): R91.1 - SOLITARY PULMONARY NODULE (12) Pulmonary nodule Assessment/Plan: FALL XRAYS NO FX Condition: Fair - Instructions Referrals: Yosvany Morris MD [Primary Care Provider] - - Home Medications Comprehensive Discharge Medication List: Ambulatory Orders Nebivolol [Bystolic -] 5 mg PO DAILY 05/11/16 Omeprazole 40 mg PO DAILY 05/13/16 Clopidogrel Bisulfate [Plavix] 75 mg PO DAILY 03/19/18 Gabapentin 300 mg PO TID 03/19/18 Sertraline HCl 100 mg PO DAILY 02/13/19 Acetaminophen [Mapap] 1,000 mg PO QID PRN 06/01/19 Buspirone HCl [Buspar -] 30 mg PO BID 06/01/19 Cyclosporine [Restasis] 1 each OP BID 06/01/19 Meclizine HCl [Antivert -] 25 mg PO BID PRN 06/01/19
[2019-09-07] MEDS: FAMOTIDINE 20 MG/50 ML IVPB 20 MG/50 ML MG IVPB SCH (09:25)
[2019-09-07] MEDS: SERTRALINE HCL 50 MG TABLET (FP) PO SCH (09:25)
[2019-09-07] MEDS: HEPARIN NA (PORCINE) 5,000 UNITS/ML 1ML VIAL SQ SCH (09:26)
[2019-09-07] MEDS: MULTIVITAMINS (DAILY MVI) TABLET (FP) PO SCH (09:27)
[2019-09-07] MEDS: busPIRone HCL 10 MG TABLET (FP) PO SCH (09:27)
[2019-09-07] MEDS: CLOPIDOGREL BISULFATE 75 MG TABLET (FP) PO SCH (09:27)
[2019-09-07] MEDS: AMINO ACIDS/PROTEIN HYDROLYS 30 ML LIQUID.PKT PO SCH (09:28)
[2019-09-07] MEDS: NEBIVOLOL 5 MG TABLET (FP) PO SCH (09:29)
[2019-09-07 14:17] VITALS: BP 135/76; PULSE 64; TEMP 98
== END 2019-09-07 17:06 | DRG 392 ==
LOC: JER 10:35 → JERBED 16:31 → J6S 18:57
PROVIDERS: ADMIT Family Medicine; ATTEND Family Medicine
DX: K59.09 Other constipation (principal); Z68.42 Body mass index [BMI] 45.0-49.9, adult; I25.10 Atherosclerotic heart disease of native coronary artery without angina pectoris; M79.2 Neuralgia and neuritis, unspecified; R91.1 Solitary pulmonary nodule; B96.1 Klebsiella pneumoniae [K. pneumoniae] as the cause of diseases classified elsewhere; I10 Essential (primary) hypertension; K21.9 Gastro-esophageal reflux disease without esophagitis; R10.31 Right lower quadrant pain; E66.01 Morbid (severe) obesity due to excess calories; M54.5 Low back pain; R82.71 Bacteriuria; M48.07 Spinal stenosis, lumbosacral region; G62.9 Polyneuropathy, unspecified; R11.2 Nausea with vomiting, unspecified; G93.89 Other specified disorders of brain; E87.5 Hyperkalemia; F32.9 Major depressive disorder, single episode, unspecified; Z98.84 Bariatric surgery status; Z86.73 Personal history of transient ischemic attack (TIA), and cerebral infarction without residual deficits; W18.30XA Fall on same level, unspecified, initial encounter; Y92.230 Patient room in hospital as the place of occurrence of the external cause
CPT/HCPCS: 36415; 70450-TC; 71045-TC-FY; 73030-TC-RT-FY; 73110-TC-RT-FY; 73130-TC-RT-FY; 73560-TC-RT-FY; 74176-TC; 80053; 81003; 82150; 82607; 82962; 83690; 84132; 84443; 85025; 85027; 85610; 85651; 86140; 86593; 86850; 86900; 86901; 87077; 87086; 87186; 93005; 93010; 97116-GP; 97162-GP; 99285-25; J0131; J1644; J7030

== ENCOUNTER 2020-02-03 09:53 | Inpatient (IN) | payer OTHER ==
[2020-02-03] MEDS ORDERED: PANTOPRAZOLE SODIUM 40 MG VIAL IVPUSH ONE (10:59)
[2020-02-03] MEDS ORDERED: PANTOPRAZOLE SODIUM 40 MG VIAL ONE (11:24)
[2020-02-03 12:02] LABS: BASO % 0.3 % (0-2.0); EOS % 0.9 % (0-4.5); HEMOGLOBIN 12.7 GM/dL (10.7-15.3); LYMPH % 16.5 % (8-40); MCH 23.7 pg (25.7-33.7); MCHC 32.7 g/dl (32.0-36.0); MEAN CELL VOLUME 72.5 fl (80-96); MEAN PLT VOLUME 9.1 fl (7.5-11.1); MONO % 7.1 % (3.8-10.2); NEUT % 75.2 % (42.8-82.8); PLATELET COUNT 222 K/MM3 (134-434); RBC 5.37 M/mm3 (3.60-5.2); RDW 19.1 % (11.6-15.6); WHITE BLOOD COUNT 10.1 K/mm3 (4.0-10.0)
[2020-02-03 12:06] LABS: PROTHROMBIN TIME (PATIENT) 11.8 SEC (9.7-13.0)
[2020-02-03 12:37] LABS: ALBUMIN 3.7 g/dl (3.4-5.0); ALK PHOS 236 U/L (45-117); ANION GAP 8 MMOL/L (8-16); BILIRUBIN,TOTAL 0.8 mg/dL (0.2-1); BLOOD UREA NITROGEN 11.4 mg/dL (7-18); CALCIUM 9.5 mg/dL (8.5-10.1); CHLORIDE 105 mmol/L (98-107); CO2 28 mmol/L (21-32); CREATININE 0.8 mg/dL (0.55-1.3); GLUCOSE,RANDOM 91 mg/dL (74-106); LIPASE 52 U/L (73-393); POTASSIUM 4.2 mmol/L (3.5-5.1); SGOT/AST 80 U/L (15-37); SGPT/ALT 86 U/L (13-61); SODIUM 141 mmol/L (136-145); TOT PROT 8.4 g/dl (6.4-8.2)
--- NOTE | 2020-02-03 13:09 | PDOC ---
Documentation entered by Laurel Lopez SCRIBE, acting as scribe for Moose Contreras MD. Moose Contreras MD: This documentation has been prepared by the Jessica zhang Brenda, SCRIBE, under my direction and personally reviewed by me in its entirety. I confirm that the documentation accurately reflects all work, treatment, procedures, and medical decision making performed by me. History of Present Illness - General Stated Complaint: ABD PAIN Time Seen by Provider: 02/03/20 10:06 History Source: Patient Exam Limitations: No Limitations - History of Present Illness Initial Comments: 02/03/20 10:26 The patient is an 84 year old female with a significant PMH of stomach ulcers, HTN and anxiety who presents to the emergency department for evaluation of abdominal pain s/p fall Saturday evening (01/29/20). Per patient's granddaughter on the bedside, the patient fell forward hitting her abdomen and head causing right sided flank bruising and right-sided abdominal pain that has progressively worsened. Patient then notes that she developed a headache. Per granddaughter, this morning patient had an episode of hemoptysis so she was brought into the ED. She also endorses dizziness when turning her head. The patient denies chest pain, shortness of breath. Denies fever, chills, nausea, vomiting, diarrhea and constipation. Denies dysuria, frequency, urgency and hematuria. Allergies: Aspirin, penicillins Past surgical history: unknown abdominal surgery Social history: No reported hx of tobacco use, alcohol use or illicit drug use. PCP: Mary Jo (Not on staff) GI: Matt Past History - Medical History Allergies/Adverse Reactions: Allergies Allergy/AdvReac Type Severity Reaction Status Date / Time aspirin Allergy Intermediate Rash Verified 02/03/20 11:34 Penicillins AdvReac Severe Vomiting Verified 02/03/20 11:34 Home Medications: Ambulatory Orders Nebivolol [Bystolic -] 5 mg PO DAILY 05/11/16 Omeprazole 40 mg PO DAILY 05/13/16 Clopidogrel Bisulfate [Plavix] 75 mg PO DAILY 03/19/18 Gabapentin 300 mg PO TID 03/19/18 Sertraline HCl 100 mg PO DAILY 02/13/19 Acetaminophen [Mapap] 1,000 mg PO QID PRN 06/01/19 Buspirone HCl [Buspar -] 30 mg PO BID 06/01/19 Cyclosporine [Restasis] 1 each OP BID 06/01/19 Meclizine HCl [Antivert -] 25 mg PO BID PRN 06/01/19 Pregabalin 100 mg PO TID 02/03/20 Anemia: No Asthma: No Cancer: No Cardiac Disorders: No CVA: Yes ("MINI-STROKE" 1 YR AGO) COPD: No CHF: No Dementia: No Diabetes: No GI Disorders: No Disorders: No HTN: Yes Hypercholesterolemia: No Liver Disease: No Psychiatric Problems: Yes Seizures: Yes (due to panic attack) Thyroid Disease: No - Surgical History Abdominal Surgery: Yes ("reconstruction") Appendectomy: No Cardiac Surgery: No Cholecystectomy: Yes Lung Surgery: No Neurologic Surgery: No Orthopedic Surgery: Yes (LT KNEE REPLACEMENT) - Immunization History Immunization Up to Date: Yes - Psycho-Social/Smoking History Smoking Status: No Smoking History: Never smoked Have you smoked in the past 12 months: No Number of Cigarettes Smoked Daily: 0 Review of Systems - Review of Systems Able to Perform ROS?: Yes Comments:: 02/03/20 10:26 CONSTITUTIONAL: No fever, no chills, no fatigue EYES: No visual changes ENT: No ear pain, no sore throat CARDIOVASCULAR: No chest pain, no palpitations RESPIRATORY: No cough, no SOB GI: (+) abdominal pain, no nausea, no vomiting, no constipation, no diarrhea GENITOURINARY: No dysuria, no frequency, no hematuria MUSKULOSKELETAL: No backpain, no joint pain, no myalgias SKIN: No rash NEURO: (+) headache *Physical Exam - Physical Exam 02/03/20 10:27 EXAMINATION CONSTITUTIONAL: Awake, alert, obese, in no distress HEAD: Normocephalic; atraumatic EYES: PERRL; EOM intact ENMT: External appears normal; normal oropharynx NECK: Supple; non-tender; CARD: Normal S1, S2; no murmurs, rubs, or gallops RESP: Normal chest excursion with respiration; breath sounds clear and equal bilaterally; + extensive echymosis to the left lateral chest over ribs 8-12 with point ttp; no crepitus; ABD: Soft, non-distended; + mild ruq tender; no palpable organomegaly, no palpable hernias; PELVIS: stable BACK: no defor; no midline ttp EXT: Normal ROM in all four extremities; non-tender to palpation; distal pulses intact SKIN: Warm, dry, no rash NEURO: No focal neurological deficiencies. Heart Score/ECG Review - ECG Impressions Comment:: 02/03/20 14:17 Rate 70 bpm Normal Sinus Rhythm Normal ECG ED Treatment Course - LABORATORY CBC & Chemistry Diagram: 02/03/20 11:20 02/03/20 11:27 Medical Decision Making - Medical Decision Making 02/03/20 13:09 , Patient is an 84-year-old female with history of peptic ulcer disease who presents to the ER with traumatic left-sided chest discomfort, right upper quadrant pain and questionable hematemesis versus hemoptysis. Will obtain chest x-ray to rule out pneumothorax. Will obtain chest x-ray of abdomen pelvis to evaluate for liver/kidney injury related to the fall. Will obtain stool for guaiac. Will obtain CBC/CMP. Likely admission. 02/03/20 14:38 Patient reassessed. Hematocrit is noted to be 39. CT of abdomen pelvis reveals a moderate sized hiatal hernia but no evidence acute intra-abdominal pathology. There is no evidence pneumohemothorax on the right. Case discussed with Dr. Gutierrez of GI. Will admit for serial credits and surgical evaluation of hiatal hernia. Discharge - Discharge Information Problems reviewed: Yes Clinical Impression/Diagnosis: Hiatal hernia Hematemesis Qualifiers: Nausea presence: unspecified Qualified Code(s): K92.0 - Hematemesis Abdominal pain Qualifiers: Abdominal location: unspecified location Qualified Code(s): R10.9 - Unspecified abdominal pain Condition: Fair - Admission Yes - Follow up/Referral Referrals: Amber Barnes MD [Primary Care Provider] - - Patient Discharge Instructions - Post Discharge Activity
[2020-02-03] MEDS ORDERED: ACETAMINOPHEN 1000 MG/100 ML VIAL (NON FORMULARY) IVPB ONE (13:31)
[2020-02-03] MEDS ORDERED: ACETAMINOPHEN INJECTION 100 ML IVPB ONE (13:32)
--- NOTE | 2020-02-03 15:00 | HP ---
Admitting History and Physical - Admission Chief Complaint: Hematemesis History of Present Illness: The patient is an 84 year old female with a significant PMH of stomach ulcers, HTN and anxiety who presents to the emergency department for evaluation of abdominal pain s/p fall Saturday evening (01/29/20). Per patient's granddaughter on the bedside, the patient fell forward hitting her abdomen and head causing right sided flank bruising and right-sided abdominal pain that has progressively wor sened. Patient then notes that she developed a headache. Per granddaughter, this morning patient had an episode of hemoptysis so she was brought into the ED. She also endorses dizziness when turning her head. The patient denies chest pain, shortness of breath. Denies fever, chills, nausea, vomiting, diarrhea and constipation. Denies dysuria, frequency, urgency and hematuria. - Past Medical History [employer]ER: Yes: CVA, TIA Cardiovascular: Yes: HTN Pulmonary: Yes: Bronchitis. No: Asthma, Cancer, COPD, O2 Dependent, Pneumonia, Previously Intubated, Pulmonary Embolus, Pulmonary Fibrosis, Sleep Apnea Gastrointestinal: Yes: GERD Psych: Yes: Depression Musculoskeletal: Yes: Chronic low back pain Endocrine: Yes: Other (obesity) - Past Surgical History Past Surgical History: Yes: Appendectomy (, ventral hernia repair), Bariatric Surgery (gastric sleeve surgery (20 years ago per the patient)), Cholecystectomy, Hernia Repair (ventral) - Smoking History Smoking history: Never smoked Have you smoked in the past 12 months: No Aproximately how many cigarettes per day: 0 - Alcohol/Substance Use Hx Alcohol Use: No History of Substance Use: reports: None - Social History ADL: Family Assistance History of Recent Travel: No Home Medications - Allergies Allergies/Adverse Reactions: Allergies Allergy/AdvReac Type Severity Reaction Status Date / Time aspirin Allergy Intermediate Rash Verified 02/03/20 11:34 Penicillins AdvReac Severe Vomiting Verified 02/03/20 11:34 - Home Medications Home Medications: Ambulatory Orders Nebivolol [Bystolic -] 5 mg PO DAILY 05/11/16 Omeprazole 40 mg PO DAILY 05/13/16 Clopidogrel Bisulfate [Plavix] 75 mg PO DAILY 03/19/18 Gabapentin 300 mg PO TID 03/19/18 Sertraline HCl 100 mg PO DAILY 02/13/19 Acetaminophen [Mapap] 1,000 mg PO QID PRN 06/01/19 Buspirone HCl [Buspar -] 30 mg PO BID 06/01/19 Cyclosporine [Restasis] 1 each OP BID 06/01/19 Meclizine HCl [Antivert -] 25 mg PO BID PRN 06/01/19 Pregabalin 100 mg PO TID 02/03/20 Review of Systems - Review of Systems Constitutional: reports: No Symptoms Eyes: reports: No Symptoms HENT: reports: No Symptoms Neck: reports: No Symptoms Cardiovascular: reports: No Symptoms Respiratory: reports: No Symptoms Gastrointestinal: reports: Abdominal Pain, Nausea, Vomiting Blood Genitourinary: reports: No Symptoms Breasts: reports: No Symptoms Reported Musculoskeletal: reports: No Symptoms Integumentary: reports: No Symptoms Neurological: reports: No Symptoms Endocrine: reports: No Symptoms Hematology/Lymphatic: reports: No Symptoms Psychiatric: reports: No Symptoms Physical Examination Vital Signs: Vital Signs Temperature 98.3 F 02/03/20 14:43 Pulse Rate 68 02/03/20 14:43 Respiratory Rate 18 02/03/20 14:43 Blood Pressure 169/80 02/03/20 14:43 O2 Sat by Pulse Oximetry (%) 96 02/03/20 14:43 Constitutional: Yes: Well Nourished, No Distress, Calm Cardiovascular: Yes: Regular Rate and Rhythm Respiratory: Yes: Regular, CTA Bilaterally Gastrointestinal: Yes: Normal Bowel Sounds, Soft, Abdomen, Obese, Tenderness (RUQ), Tenderness, Epigastrium Renal/: Yes: WNL Musculoskeletal: Yes: Muscle Weakness Extremities: Yes: WNL Edema: No Peripheral Pulses WNL: Yes Neurological: Yes: Alert, Oriented Psychiatric: Yes: Alert, Oriented Labs: CBC, BMP 02/03/20 11:20 02/03/20 11:27 Imaging - Results X-ray: Report Reviewed Problem List - Problems (1) Abdominal pain Assessment/Plan: -CTAP -GI consult -EGD 4 weeks ago showed PUD -PPI BID -Sucralfate 1 gm qid -Clear liquid diet for now Problems reviewed: Yes Code(s): R10.9 - UNSPECIFIED ABDOMINAL PAIN Qualifiers: Abdominal location: unspecified location Qualified Code(s): R10.9 - Unspecified abdominal pain (2) Hematemesis Assessment/Plan: -Hold plavix until hemodynamically stable -Monitor Hg Problems reviewed: Yes Code(s): K92.0 - HEMATEMESIS Qualifiers: Nausea presence: unspecified Qualified Code(s): K92.0 - Hematemesis (3) Hiatal hernia Assessment/Plan: -Surgical consult Problems reviewed: Yes Code(s): K44.9 - DIAPHRAGMATIC HERNIA WITHOUT OBSTRUCTION OR GANGRENE (4) Accidental fall Assessment/Plan: -Safety precautions -Physical therapy Problems reviewed: Yes Code(s): W19.XXXA - UNSPECIFIED FALL, INITIAL ENCOUNTER Assessment/Plan See problem list
[2020-02-03 15:35] LABS: PH,URINE >= 9.0 (5.0-8.0); URINE APPEARANCE CLEAR; URINE BILIRUBIN NEGATIVE (NEGATIVE); URINE COLOR YELLOW; URINE GLUCOSE (UA) NEGATIVE (NEGATIVE); URINE KETONE NEGATIVE (NEGATIVE); URINE LEUK ESTERASE NEGATIVE (NEGATIVE); URINE NITRITE NEGATIVE (NEGATIVE); URINE PROTEIN TRACE (NEGATIVE); URINE UROBILINOGEN 0.2 mg/dL (0.2-1.0)
--- NOTE | 2020-02-03 15:47 | EKG ---
Test Reason : Blood Pressure : / mmHG Vent. Rate : 070 BPM Atrial Rate : 070 BPM P-R Int : 136 ms QRS Dur : 072 ms QT Int : 414 ms P-R-T Axes : 000 021 048 degrees QTc Int : 447 ms POOR DATA QUALITY, INTERPRETATION MAY BE ADVERSELY AFFECTED NORMAL SINUS RHYTHM NORMAL ECG WHEN COMPARED WITH ECG OF 02-SEP-2019 17:20, NO SIGNIFICANT CHANGE WAS FOUND Confirmed by Nima Sharma ([id number]) on 02/03/2020 3:47:22 PM Referred By: Confirmed By:Nima Sharma
[2020-02-03] MEDS: NEBIVOLOL 5 MG TABLET (FP) PO SCH (16:18)
--- NOTE | 2020-02-03 16:34 | CON.CARD ---
Consult Consult Specialty:: Cardiology Reason for Consultation:: Anticoaglation management - History of Present Illness History of Present Illness: 84 year old female PMH of stomach ulcers, prior CVA, HTN hiatal hernia and anxiety who presents to the emergency department for evaluation of abdominal pain s/p fall Saturday evening (01/29/20). Had an episode of hemoptysis so she was brought into the ED. No chest pain or dyspnea. - Past Medical History [employer]: Yes: CVA, TIA Cardio/Vascular: Yes: HTN Pulmonary: Yes: Bronchitis. No: Asthma, Cancer, COPD, O2 Dependent, Pneumonia, Previously Intubated, Pulmonary Embolus, Pulmonary Fibrosis, Sleep Apnea Gastrointestinal: Yes: GERD Psych: Yes: Depression Musculoskeletal: Yes: Chronic low back pain Endocrine: Yes: Other (obesity) - Past Surgical History Past Surgical History: Yes: Appendectomy (, ventral hernia repair), Bariatric Surgery (gastric sleeve surgery (20 years ago per the patient)), Cholecystec prerna, Hernia Repair (ventral) - Alcohol/Substance Use Hx Alcohol Use: No History of Substance Use: reports: None - Smoking History Smoking history: Never smoked Have you smoked in the past 12 months: No Aproximately how many cigarettes per day: 0 - Social History Usual Living Arrangement: Alone ADL: Family Assistance History of Recent Travel: No Home Medications - Allergies Allergies/Adverse Reactions: Allergies Allergy/AdvReac Type Severity Reaction Status Date / Time aspirin Allergy Intermediate Rash Verified 02/03/20 11:34 Penicillins AdvReac Severe Vomiting Verified 02/03/20 11:34 - Home Medications Home Medications: Ambulatory Orders Nebivolol [Bystolic -] 5 mg PO DAILY 05/11/16 Omeprazole 40 mg PO DAILY 05/13/16 Clopidogrel Bisulfate [Plavix] 75 mg PO DAILY 03/19/18 Gabapentin 300 mg PO TID 03/19/18 Sertraline HCl 100 mg PO DAILY 02/13/19 Acetaminophen [Mapap] 1,000 mg PO QID PRN 06/01/19 Buspirone HCl [Buspar -] 30 mg PO BID 06/01/19 Cyclosporine [Restasis] 1 each OP BID 06/01/19 Meclizine HCl [Antivert -] 25 mg PO BID PRN 06/01/19 Pregabalin 100 mg PO TID 02/03/20 Review of Systems - Review of Systems Constitutional: reports: No Symptoms Eyes: reports: No Symptoms HENT: reports: No Symptoms Neck: reports: No Symptoms Cardiovascular: denies: Chest Pain, Edema, Palpitations, Shortness of Breath Respiratory: reports: No Symptoms Gastrointestinal: reports: Abdominal Pain, Vomiting Genitourinary: reports: No Symptoms Breasts: reports: No Symptoms Reported Vital Signs: Vital Signs Temperature 98.3 F 02/03/20 14:43 Pulse Rate 68 02/03/20 14:43 Respiratory Rate 18 02/03/20 14:43 Blood Pressure 169/80 02/03/20 14:43 O2 Sat by Pulse Oximetry (%) 96 02/03/20 14:43 Constitutional: Yes: Well Nourished, No Distress Eyes: Yes: Conjunctiva Clear HENT: Yes: Atraumatic, Normocephalic Neck: Yes: Supple, Trachea Midline Respiratory: Yes: Regular, CTA Bilaterally Gastrointestinal: Yes: Normal Bowel Sounds Cardiovascular: Yes: Regular Rate and Rhythm Heart Sounds: Yes: S1, S2 Murmur: No: Systolic Murmur, Diastolic Murmur Edema: No - Other Data Labs, Other Data: CBC, BMP 02/03/20 11:20 02/03/20 11:27 INR, PTT INR 1.00 (0.83-1.09) 02/03/20 11:20 Troponin, BNP 02/03/20 11:27 Troponin I < 0.02 Troponin, BNP 02/03/20 11:27 Troponin I < 0.[address] T changes Problem List - Problems (1) Abdominal pain Code(s): R10.9 - UNSPECIFIED ABDOMINAL PAIN Qualifiers: Abdominal location: unspecified location Qualified Code(s): R10.9 - Unspec ified abdominal pain (2) Accidental fall Code(s): W19.XXXA - UNSPECIFIED FALL, INITIAL ENCOUNTER Assessment/Plan 84 F ho ulcers, HTN, CVA. Adm with abd pain and possible hemoptysis. VS stable. No heart failure symptoms and no heart murmus resume Plavix if there is no bleeding or once bleeding resolved due to ho CVA.
[2020-02-03] MEDS: SUCRALFATE 1 GM/10 ML UNIT DOSE CUPS PO SCH ×2 (18:43→22:53)
[2020-02-03] MEDS ORDERED: ONDANSETRON 4 MG/2 ML VIAL IVPUSH ONE (21:00)
[2020-02-03] MEDS ORDERED: MORPHINE SULFATE 2 MG/ML VIAL IVPUSH ONE (21:01)
[2020-02-03] MEDS ORDERED: PATIENT'S OWN MEDICATION (NON-FORMULARY) (Cyclosporine [Restasis] 1 EACH) OP SCH (22:00)
[2020-02-03] MEDS: PANTOPRAZOLE SODIUM 40 MG VIAL IVPUSH SCH (22:53)
[2020-02-03] MEDS: ACETAMINOPHEN 325 MG TABLET (FP) PO PRN (22:55)
[2020-02-03] MEDS: busPIRone HCL 10 MG TABLET (FP) PO SCH (22:56)
[2020-02-04 00:15] VITALS: BMI 38.9
[2020-02-04] MEDS: ACETAMINOPHEN 325 MG TABLET (FP) PO PRN ×2 (06:32→10:42)
[2020-02-04 07:42] LABS: BASO % 0.4 % (0-2.0); EOS % 1.4 % (0-4.5); HEMATOCRIT 35.2 % (32.4-45.2); HEMOGLOBIN 11.4 GM/dL (10.7-15.3); LYMPH % 21.9 % (8-40); MCH 23.7 pg (25.7-33.7); MCHC 32.5 g/dl (32.0-36.0); MEAN PLT VOLUME 8.2 fl (7.5-11.1); MONO % 9.6 % (3.8-10.2); NEUT % 66.7 % (42.8-82.8); PLATELET COUNT 198 K/MM3 (134-434); RBC 4.82 M/mm3 (3.60-5.2); RDW 18.7 % (11.6-15.6); WHITE BLOOD COUNT 8.3 K/mm3 (4.0-10.0)
[2020-02-04 08:10] LABS: ALBUMIN 3.2 g/dl (3.4-5.0); BILIRUBIN,TOTAL 0.8 mg/dL (0.2-1); BLOOD UREA NITROGEN 13.2 mg/dL (7-18); CALCIUM 9.2 mg/dL (8.5-10.1); CREATININE 0.8 mg/dL (0.55-1.3); TOT PROT 7.4 g/dl (6.4-8.2)
--- NOTE | 2020-02-04 09:46 | PN ---
Progress Note, Physician Chief Complaint: Hematemesis History of Present Illness: NAD in bed tolerating clear liquids GI consult pending Seen by surgery for large hiatal hernia Denies any nausea, vomiting diarrhea today Last vomiting yesterday - Current Medication List Current Medications: Active Medications Acetaminophen (Tylenol -) 650 mg PO Q4H PRN PRN Reason: PAIN SCALE 1-3 Last Admin: 02/04/20 06:32 Dose: 650 mg Documented by: Buspirone HCl (Buspar -) 30 mg PO BID [facility] Last Admin: 02/03/20 22:56 Dose: 30 mg Documented by: Fondaparinux (Arixtra (Restricted) -) 7.5 mg SQ ONCE ONE Stop: 02/04/20 14:55 Nebivolol (Bystolic -) 5 mg PO DAILY [facility] Last Admin: 02/03/20 16:18 Dose: 5 mg Documented by: Non-Formulary Medication (Cyclosporine [Restasis]) 1 each OP BID [facility] Ondansetron HCl (Zofran Injection) 4 mg IVPUSH Q6H PRN PRN Reason: NAUSEA AND/OR VOMITING Pantoprazole Sodium (Protonix Iv) 40 mg IVPUSH BID [facility] Last Admin: 02/03/20 22:53 Dose: 40 mg Documented by: Sertraline HCl (Zoloft -) 100 mg PO DAILY [facility] Sucralfate (Carafate Oral Suspension -) 1 gm PO QID [facility] Last Admin: 02/03/20 22:53 Dose: 1 gm Documented by: - Objective Vital Signs: Vital Signs Temperature 97.7 F 02/04/20 05:57 Pulse Rate 70 02/04/20 05:57 Respiratory Rate 18 02/04/20 05:57 Blood Pressure 146/75 02/04/20 05:57 O2 Sat by Pulse Oximetry (%) 96 02/04/20 05:57 Constitutional: Yes: Well Nourished, No Distress, Calm, Obese Cardiovascular: Yes: Regular Rate and Rhythm Respiratory: Yes: Regular, CTA Bilaterally Gastrointestinal: Yes: Normal Bowel Sounds, Soft, Abdomen, Obese, Tenderness, Epigastrium Genitourinary: Yes: WNL Musculoskeletal: Yes: WNL Extremities: Yes: WNL Edema: No Peripheral Pulses WNL: Yes Neurological: Yes: Alert, Oriented Psychiatric: Yes: Alert, Oriented Labs: CBC, BMP 02/04/20 06:30 02/04/20 06:30 INR, PTT INR 1.00 (0.83-1.09) 02/03/20 11:20 Problem List - Problems (1) Abdominal pain Assessment/Plan: -CTAP unremarkable except large hiatal hernia -Await GI consult -EGD 4 weeks ago showed PUD -PPI BID -Sucralfate 1 gm qid -Tolerating clear liquid diet-->advance to full liquid diet Problems reviewed: Yes Code(s): R10.9 - UNSPECIFIED ABDOMINAL PAIN Qualifiers: Abdominal location: unspecified location Qualified Code(s): R10.9 - Unspecified abdominal pain (2) Hematemesis Assessment/Plan: -No overt bleeding at this time -Resume plavix benefit>risk -Monitor Hg Problems reviewed: Yes Code(s): K92.0 - HEMATEMESIS Qualifiers: Nausea presence: unspecified Qualified Code(s): K92.0 - Hematemesis (3) Hiatal hernia Assessment/Plan: -Surgical consult Problems reviewed: Yes Code(s): K44.9 - DIAPHRAGMATIC HERNIA WITHOUT OBSTRUCTION OR GANGRENE (4) Accidental fall Assessment/Plan: -Safety precautions -Physical therapy Problems reviewed: Yes Code(s): W19.XXXA - UNSPECIFIED FALL, INITIAL ENCOUNTER Assessment/Plan See problem list
[2020-02-04] MEDS: SUCRALFATE 1 GM/10 ML UNIT DOSE CUPS PO SCH ×4 (10:42→21:43)
[2020-02-04] MEDS: busPIRone HCL 10 MG TABLET (FP) PO SCH ×2 (10:42→21:43)
[2020-02-04] MEDS: NEBIVOLOL 5 MG TABLET (FP) PO SCH (10:43)
[2020-02-04] MEDS: PANTOPRAZOLE SODIUM 40 MG VIAL IVPUSH SCH ×2 (10:43→21:43)
[2020-02-04] MEDS: SERTRALINE HCL 50 MG TABLET (FP) PO SCH (10:43)
--- NOTE | 2020-02-04 10:57 | CONSULT ---
Consult Consult Specialty:: surgery - History of Present Illness Chief Complaint: chest and epigastric pain History of Present Illness: 84 year old female with a significant PMH of stomach ulcers, HTN and anxiety who presents to the emergency department for evaluation of abdominal pain s/p fall Saturday evening (01/29/20). Per patient's granddaughter on the bedside, the patient fell forward hitting her abdomen and head causing right sided flank bruising and right-sided abdominal pain that has progressively worsened. Patient then notes that she developed a headache. Per granddaughter, this morning patient had an episode of hemoptysis so she was brought into the ED. She also en dorses dizziness when turning her head. She reports a history of frequent vomiting often on a daily basis. She has been previously investigated with endoscopy by Dr Gutierrez. She underwent some type of bariatric surgery 20 yrs ago at [place] which was complicated and required percutaneous drainage and abdominoplasty. 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 No: Asthma, Cancer, COPD, O2 Dependent, Pneumonia, Previously Intubated, Pulmonary Embolus, Pulmonary Fibrosis, Sleep Apnea Gastrointestinal: Yes: GERD Psych: Yes: Depression Musculoskeletal: Yes: Chronic low back pain Endocrine: Yes: Other (obesity) - Past Surgical History Past Surgical History: Yes: Appendectomy (, ventral hernia repair), Bariatric Surgery (gastric sleeve surgery (20 years ago per the patient)), Cholecystectomy, Hernia Repair (ventral) - Alcohol/Substance Use Hx Alcohol Use: No History of Substance Use: reports: None - Smoking History Smoking history: Never smoked Have you smoked in the past 12 months: No Aproximately how many cigarettes per day: 0 - Social History Usual Living Arrangement: Alone ADL: Family Assistance History of Recent Travel: No Home Medications - Allergies Allergies/Adverse Reactions: Allergies Allergy/AdvReac Type Severity Reaction Status Date / Time aspirin Allergy Intermediate Rash Verified 02/03/20 11:34 Penicillins AdvReac Severe Vomiting Verified 02/03/20 11:34 - Home Medications Home Medications: Ambulatory Orders Nebivolol [Bystolic -] 5 mg PO DAILY 05/11/16 Omeprazole 40 mg PO DAILY 05/13/16 Clopidogrel Bisulfate [Plavix] 75 mg PO DAILY 03/19/18 Gabapentin 300 mg PO TID 03/19/18 Sertraline HCl 100 mg PO DAILY 02/13/19 Acetaminophen [Mapap] 1,000 mg PO QID PRN 06/01/19 Buspirone HCl [Buspar -] 30 mg PO BID 06/01/19 Cyclosporine [Restasis] 1 each OP BID 06/01/19 Meclizine HCl [Antivert -] 25 mg PO BID PRN 06/01/19 Pregabalin 100 mg PO TID 02/03/20 Physical Exam Vital Signs: Vital Signs Temperature 97.6 F 02/04/20 10:28 Pulse Rate 71 02/04/20 10:28 Respiratory Rate 18 02/04/20 10:28 Blood Pressure 121/61 02/04/20 10:28 O2 Sat by Pulse Oximetry (%) 95 02/04/20 10:28 Labs: CBC, BMP 02/04/20 06:30 02/04/20 06:30 Imaging - Results Cat Scan: Report Reviewed, Image Reviewed Problem List - Problems (1) Hematemesis Code(s): K92.0 - HEMATEMESIS Qualifiers: Nausea presence: unspecified Qualified Code(s): K92.0 - Hematemesis (2) Hiatal hernia Code(s): K44.9 - DIAPHRAGMATIC HERNIA WITHOUT OBSTRUCTION OR GANGRENE Assessment/Plan 84 yr old female with a 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 In addition she has a unclear history of surgery ( bariatric) Agree with GI consult Consider Upper GI series if there are no plans for EGD during this admission. She will need repair of this large paraesophageal hernia provided that we can obtain medical/ cardiac clearance
[2020-02-04] MEDS ORDERED: FONDAPARINUX SODIUM 5 MG/0.4 ML DISP.SYRIN SQ ONE (14:54)
[2020-02-04] MEDS: CLOPIDOGREL BISULFATE 75 MG TABLET (FP) PO SCH (21:43)
[2020-02-05] MEDS: ACETAMINOPHEN 325 MG TABLET (FP) PO PRN (06:58)
[2020-02-05 07:42] LABS: BASO % 0.6 % (0-2.0); EOS % 3.6 % (0-4.5); HEMATOCRIT 33.7 % (32.4-45.2); HEMOGLOBIN 11.3 GM/dL (10.7-15.3); LYMPH % 24.5 % (8-40); MCH 24.8 pg (25.7-33.7); MCHC 33.5 g/dl (32.0-36.0); MEAN CELL VOLUME 74.2 fl (80-96); MEAN PLT VOLUME 8.4 fl (7.5-11.1); MONO % 11.3 % (3.8-10.2); PLATELET COUNT 198 K/MM3 (134-434); RBC 4.54 M/mm3 (3.60-5.2); RDW 18.8 % (11.6-15.6); WHITE BLOOD COUNT 7.6 K/mm3 (4.0-10.0)
[2020-02-05 07:52] LABS: BILIRUBIN,TOTAL 0.7 mg/dL (0.2-1); BLOOD UREA NITROGEN 13.6 mg/dL (7-18); CALCIUM 9.1 mg/dL (8.5-10.1); CREATININE 0.9 mg/dL (0.55-1.3); TOT PROT 7.2 g/dl (6.4-8.2)
--- NOTE | 2020-02-05 09:20 | PN ---
Progress Note (short form) - Note Progress Note: Surgery note: Pt without any nausea or emesis overnight. Having some upper abd pain. Vital Signs Period Temp Pulse Resp BP Sys/Thakkar Pulse Ox Last 24 Hr 97.6 F-98.2 F 64-71 18-18 112-138/55-66 92-96 GEN: A&0x3, NAd oob to chair ABD: soft. non-distended, Mild RUQ tenderness CBC, BMP 02/05/20 06:30 02/05/20 06:30 A/p: 84 yo female with large paraesphageal hernia D/w Dr. Vizcarra and ordered UGI with gatrograffin to eval hernia Awaiting Dr. Gutierrez consult if able to completed EGD can then defer UGI series Will need more information regarding her previous surgery PPI D/w Dr. Vizcarra
[2020-02-05] MEDS: PANTOPRAZOLE SODIUM 40 MG VIAL IVPUSH SCH ×2 (09:49→22:15)
[2020-02-05] MEDS: SUCRALFATE 1 GM/10 ML UNIT DOSE CUPS PO SCH ×4 (09:49→22:14)
[2020-02-05] MEDS: NEBIVOLOL 5 MG TABLET (FP) PO SCH (09:50)
[2020-02-05] MEDS: busPIRone HCL 10 MG TABLET (FP) PO SCH ×2 (09:50→22:13)
[2020-02-05] MEDS: CLOPIDOGREL BISULFATE 75 MG TABLET (FP) PO SCH (09:50)
[2020-02-05] MEDS: SERTRALINE HCL 50 MG TABLET (FP) PO SCH (09:50)
--- NOTE | 2020-02-05 12:06 | CON.GI ---
Consult Consult Specialty:: GI - History of Present Illness History of Present Illness: 84 y/o F was admitted because of severe epigastric pain. The patient has a large paraesophageal hernia. I advised admission for further evaluation and management. 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 No: Asthma, Cancer, COPD, O2 Dependent, Pneumonia, Previously Intubated, Pulmonary Embolus, Pulmonary Fibrosis, Sleep Apnea Gastrointestinal: Yes: GERD Psych: Yes: Depression Musculoskeletal: Yes: Chronic low back pain Endocrine: Yes: Other (obesity) - Past Surgical History Past Surgical History: Yes: Appendectomy (, ventral hernia repair), Bariatric Surgery (gastric sleeve surgery (20 years ago per the patient)), Cholecyste ctomy, Hernia Repair (ventral) - Alcohol/Substance Use Hx Alcohol Use: No History of Substance Use: reports: None - Smoking History Smoking history: Never smoked Have you smoked in the past 12 months: No Aproximately how many cigarettes per day: 0 - Social History Usual Living Arrangement: Alone ADL: Family Assistance History of Recent Travel: No Home Medications - Allergies Allergies/Adverse Reactions: Allergies Allergy/AdvReac Type Severity Reaction Status Date / Time aspirin Allergy Intermediate Rash Verified 02/03/20 11:34 Penicillins AdvReac Severe Vomiting Verified 02/03/20 11:34 - Home Medications Home Medications: Ambulatory Orders Nebivolol [Bystolic -] 5 mg PO DAILY 05/11/16 Omeprazole 40 mg PO DAILY 05/13/16 Clopidogrel Bisulfate [Plavix] 75 mg PO DAILY 03/19/18 Gabapentin 300 mg PO TID 03/19/18 Sertraline HCl 100 mg PO DAILY 02/13/19 Acetaminophen [Mapap] 1,000 mg PO QID PRN 06/01/19 Buspirone HCl [Buspar -] 30 mg PO BID 06/01/19 Cyclosporine [Restasis] 1 each OP BID 06/01/19 Meclizine HCl [Antivert -] 25 mg PO BID PRN 06/01/19 Pregabalin 100 mg PO TID 02/03/20 Physical Exam-GI Vital Signs: Vital Signs Temperature 98.3 F 02/05/20 10:04 Pulse Rate 74 02/05/20 10:04 Respiratory Rate 18 02/05/20 10:04 Blood Pressure 100/51 L 02/05/20 10:04 O2 Sat by Pulse Oximetry (%) 96 02/05/20 10:04 Constitutional: Yes: Obese Eyes: Yes: Conjunctiva Clear HENT: Yes: Atraumatic Neck: Yes: Supple Cardiovascular: Yes: Regular Rate and Rhythm Respiratory: Yes: CTA Bilaterally ...Palpate: Yes: Soft, Tenderness, Tenderness, Epigastium. No: Firm/Rigid, Guarding, Hepatomegaly, Mass, Pulsatile Mass, Splenomegaly Labs: CBC, BMP 02/05/20 06:30 02/05/20 06:30 INR, PTT INR 1.00 (0.83-1.09) 02/03/20 11:20 Imaging - Results Cat Scan: Report Reviewed Problem List - Problems (1) Paraesophageal hernia Assessment/Plan: 10cm associated with severe epigastric pain R> IV PPI simethicone 80mg qid surgical evaluation Code(s): K44.9 - DIAPHRAGMATIC HERNIA WITHOUT OBSTRUCTION OR GANGRENE
--- NOTE | 2020-02-05 13:32 | PN ---
Progress Note, Physician - Current Medication List Current Medications: Active Medications Acetaminophen (Tylenol -) 650 mg PO Q4H PRN PRN Reason: PAIN SCALE 1-3 Last Admin: 02/05/20 06:58 Dose: 650 mg Documented by: Buspirone HCl (Buspar -) 30 mg PO BID [facility] Last Admin: 02/05/20 09:50 Dose: 30 mg Documented by: Clopidogrel Bisulfate (Plavix -) 75 mg PO DAILY [facility] Last Admin: 02/05/20 09:50 Dose: 75 mg Documented by: Nebivolol (Bystolic -) 5 mg PO DAILY [facility] Last Admin: 02/05/20 09:50 Dose: 5 mg Documented by: Non-Formulary Medication (Cyclosporine [Restasis]) 1 each OP BID [facility] Ondansetron HCl (Zofran Injection) 4 mg IVPUSH Q6H PRN PRN Reason: NAUSEA AND/OR VOMITING Pantoprazole Sodium (Protonix Iv) 40 mg IVPUSH BID [facility] Last Admin: 02/05/20 09:49 Dose: 40 mg Documented by: Sertraline HCl (Zoloft -) 100 mg PO DAILY [facility] Last Admin: 02/05/20 09:50 Dose: 100 mg Documented by: Simethicone (Mylicon Liquid -) 80 mg PO QID [facility] Sucralfate (Carafate Oral Suspension -) 1 gm PO QID [facility] Last Admin: 02/05/20 09:49 Dose: 1 gm Documented by: - Objective Vital Signs: Vital Signs Temperature 98.3 F 02/05/20 10:04 Pulse Rate 74 02/05/20 10:04 Respiratory Rate 18 02/05/20 10:04 Blood Pressure 100/51 L 02/05/20 10:04 O2 Sat by Pulse Oximetry (%) 96 02/05/20 10:04 Cardiovascular: Yes: Regular Rate and Rhythm Respiratory: Yes: Regular, CTA Bilaterally Gastrointestinal: Yes: Normal Bowel Sounds, Soft Labs: CBC, BMP 02/05/20 06:30 02/05/20 06:30 INR, PTT INR 1.00 (0.83-1.09) 02/03/20 11:20 Assessment/Plan - Problems (1) Abdominal pain Assessment/Plan: -CTAP unremarkable except large hiatal hernia -Await GI consult--noted--surgical consult -EGD 4 weeks ago showed PUD -PPI BID -Sucralfate 1 gm qid -Tolerating clear liquid diet-->advance to full liquid diet Problems reviewed: Yes Code(s): R10.9 - UNSPECIFIED ABDOMINAL PAIN Qualifiers: Abdominal location: unspecified location Qualified Code(s): R10.9 - Unspecified abdominal pain (2) Hematemesis Assessment/Plan: -No overt bleeding at this time -Resume plavix benefit>risk -Monitor Hg Problems reviewed: Yes Code(s): K92.0 - HEMATEMESIS Qualifiers: Nausea presence: unspecified Qualified Code(s): K92.0 - Hematemesis (3) Hiatal hernia Assessment/Plan: -Surgical consult Problems reviewed: Yes Code(s): K44.9 - DIAPHRAGMATIC HERNIA WITHOUT OBSTRUCTION OR GANGRENE (4) Accidental fall Assessment/Plan: -Safety precautions -Physical therapy Problems reviewed: Yes Code(s): W19.XXXA - UNSPECIFIED FALL, INITIAL ENCOUNTER
[2020-02-05] MEDS ORDERED: PT OWN MED DRAWER 7, Y5N ONE ×4 (13:57→22:35)
[2020-02-05] MEDS: SIMETHICONE 40 MG/0.6 ML BOTTLE PO SCH ×3 (13:59→22:37)
[2020-02-05] MEDS: SENNOSIDES 8.6MG TABLET (FP) PO PRN (22:15)
[2020-02-06] MEDS: PANTOPRAZOLE SODIUM 40 MG VIAL IVPUSH SCH ×2 (09:53→22:35)
[2020-02-06] MEDS: CLOPIDOGREL BISULFATE 75 MG TABLET (FP) PO SCH (09:54)
[2020-02-06] MEDS: SERTRALINE HCL 50 MG TABLET (FP) PO SCH (09:54)
[2020-02-06] MEDS: NEBIVOLOL 5 MG TABLET (FP) PO SCH (09:54)
[2020-02-06] MEDS: busPIRone HCL 10 MG TABLET (FP) PO SCH ×2 (09:54→22:11)
[2020-02-06] MEDS: SUCRALFATE 1 GM/10 ML UNIT DOSE CUPS PO SCH ×4 (09:54→22:10)
[2020-02-06] MEDS: SIMETHICONE 40 MG/0.6 ML BOTTLE PO SCH ×4 (09:55→22:10)
--- NOTE | 2020-02-06 11:31 | PN ---
Progress Note, Physician - Current Medication List Current Medications: Active Medications Acetaminophen (Tylenol -) 650 mg PO Q4H PRN PRN Reason: PAIN SCALE 1-3 Last Admin: 02/05/20 06:58 Dose: 650 mg Documented by: Buspirone HCl (Buspar -) 30 mg PO BID [facility] Last Admin: 02/06/20 09:54 Dose: 30 mg Documented by: Clopidogrel Bisulfate (Plavix -) 75 mg PO DAILY [facility] Last Admin: 02/06/20 09:54 Dose: 75 mg Documented by: Nebivolol (Bystolic -) 5 mg PO DAILY [facility] Last Admin: 02/06/20 09:54 Dose: 5 mg Documented by: Non-Formulary Medication (Cyclosporine [Restasis]) 1 each OP BID [facility] Ondansetron HCl (Zofran Injection) 4 mg IVPUSH Q6H PRN PRN Reason: NAUSEA AND/OR VOMITING Pantoprazole Sodium (Protonix Iv) 40 mg IVPUSH BID [facility] Last Admin: 02/06/20 09:53 Dose: 40 mg Documented by: Senna (Senna -) 2 tab PO HS PRN PRN Reason: CONSTIPATION Last Admin: 02/05/20 22:15 Dose: 2 tab Documented by: Sertraline HCl (Zoloft -) 100 mg PO DAILY [facility] Last Admin: 02/06/20 09:54 Dose: 100 mg Documented by: Simethicone (Mylicon Liquid -) 80 mg PO QID [facility] Last Admin: 02/06/20 09:55 Dose: 80 mg Documented by: Sucralfate (Carafate Oral Suspension -) 1 gm PO QID [facility] Last Admin: 02/06/20 09:54 Dose: 1 gm Documented by: - Objective Vital Signs: Vital Signs Temperature 98.5 F 02/06/20 08:35 Pulse Rate 64 02/06/20 08:35 Respiratory Rate 18 02/06/20 08:35 Blood Pressure 145/66 02/06/20 08:35 O2 Sat by Pulse Oximetry (%) 97 02/06/20 08:35 Cardiovascular: Yes: Regular Rate and Rhythm Respiratory: Yes: Regular, CTA Bilaterally Gastrointestinal: Yes: Normal Bowel Sounds, Soft Labs: CBC, BMP 02/05/20 06:30 02/05/20 06:30 INR, PTT INR 1.00 (0.83-1.09) 02/03/20 11:20 Assessment/Plan - Problems (1) Abdominal pain Assessment/Plan: -CTAP unremarkable except large hiatal hernia -Await GI consult--noted--surgical consult -EGD 4 weeks ago showed PUD -PPI BID -Sucralfate 1 gm qid -Tolerating clear liquid diet-->advance to full liquid diet Problems reviewed: Yes Code(s): R10.9 - UNSPECIFIED ABDOMINAL PAIN Qualifiers: Abdominal location: unspecified location Qualified Code(s): R10.9 - Unspecified abdominal pain (2) Hematemesis Assessment/Plan: -No overt bleeding at this time -Resume plavix benefit>risk -Monitor Hg Problems reviewed: Yes Code(s): K92.0 - HEMATEMESIS Qualifiers: Nausea presence: unspecified Qualified Code(s): K92.0 - Hematemesis (3) Hiatal hernia Assessment/Plan: -Surgical consult Problems reviewed: Yes Code(s): K44.9 - DIAPHRAGMATIC HERNIA WITHOUT OBSTRUCTION OR GANGRENE (4) Accidental fall Assessment/Plan: -Safety precautions -Physical therapy Problems reviewed: Yes Code(s): W19.XXXA - UNSPECIFIED FALL, INITIAL ENCOUNTER
[2020-02-06] MEDS: ACETAMINOPHEN 325 MG TABLET (FP) PO PRN ×2 (13:35→22:35)
[2020-02-06] MEDS: ONDANSETRON 4 MG/2 ML VIAL IVPUSH PRN (13:41)
[2020-02-06] MEDS: SENNOSIDES 8.6MG TABLET (FP) PO PRN (22:11)
[2020-02-07] MEDS ORDERED: MELATONIN 5 MG TABLETS PO ONE (02:55)
[2020-02-07] MEDS ORDERED: NEBIVOLOL 5 MG TABLET (FP) PO ONE (06:31)
[2020-02-07] MEDS: PANTOPRAZOLE SODIUM 40 MG VIAL IVPUSH SCH ×2 (09:39→21:46)
[2020-02-07] MEDS: SERTRALINE HCL 50 MG TABLET (FP) PO SCH (09:40)
[2020-02-07] MEDS: SUCRALFATE 1 GM/10 ML UNIT DOSE CUPS PO SCH ×4 (09:40→21:47)
[2020-02-07] MEDS: CLOPIDOGREL BISULFATE 75 MG TABLET (FP) PO SCH (09:40)
[2020-02-07] MEDS: busPIRone HCL 10 MG TABLET (FP) PO SCH ×2 (09:41→21:50)
[2020-02-07] MEDS: SIMETHICONE 40 MG/0.6 ML BOTTLE PO SCH ×4 (09:41→21:47)
--- NOTE | 2020-02-07 11:09 | PN ---
Progress Note, Physician Chief Complaint: continues to experience pain with food History of Present Illness: 84 year old female with a significant PMH of stomach ulcers, HTN and anxiety who presents to the emergency department for evaluation of abdominal pain s/p fall Saturday evening (01/29/20). Per patient's granddaughter on the bedside, the patient fell forward hitting her abdomen and head causing right sided flank bruising and right-sided abdominal pain that has progressively worsened. Patient then notes that she developed a headache. Per granddaughter, this morning patient had an episode of hemoptysis so she was brought into the ED. She also endorses dizziness when turning her head. She reports a history of frequent vomiting often on a daily basis. She has been previously investigated with endoscopy by Dr Gutierrez. She underwent some type of bariatric surgery 20 yrs ago at [place] which was complicated and required percutaneous drainage and abdominoplasty. She has been on PPIs with minimql improvement - Current Medication List Current Medications: Active Medications Acetaminophen (Tylenol -) 650 mg PO Q4H PRN PRN Reason: PAIN SCALE 1-3 Last Admin: 02/06/20 22:35 Dose: 650 mg Documented by: Buspirone HCl (Buspar -) 30 mg PO BID [facility] Last Admin: 02/07/20 09:41 Dose: 30 mg Documented by: Clopidogrel Bisulfate (Plavix -) 75 mg PO DAILY [facility] Last Admin: 02/07/20 09:40 Dose: 75 mg Documented by: Nebivolol (Bystolic -) 5 mg PO DAILY [facility] Non-Formulary Medication (Cyclosporine [Restasis]) 1 each OP BID [facility] Ondansetron HCl (Zofran Injection) 4 mg IVPUSH Q6H PRN PRN Reason: NAUSEA AND/OR VOMITING Last Admin: 02/06/20 13:41 Dose: 4 mg Documented by: Pantoprazole Sodium (Protonix Iv) 40 mg IVPUSH BID [facility] Last Admin: 02/07/20 09:39 Dose: 40 mg Documented by: Senna (Senna -) 2 tab PO HS PRN PRN Reason: CONSTIPATION Last Admin: 02/06/20 22:11 Dose: 2 tab Documented by: Sertraline HCl (Zoloft -) 100 mg PO DAILY [facility] Last Admin: 02/07/20 09:40 Dose: 100 mg Documented by: Simethicone (Mylicon Liquid -) 80 mg PO QID [facility] Last Admin: 02/07/20 09:41 Dose: 80 mg Documented by: Sucralfate (Carafate Oral Suspension -) 1 gm PO QID [facility] Last Admin: 02/07/20 09:40 Dose: 1 gm Documented by: - Objective Vital Signs: Vital Signs Temperature 97.8 F 02/07/20 05:30 Pulse Rate 74 02/07/20 05:30 Respiratory Rate 18 02/07/20 05:30 Blood Pressure 186/109 H 02/07/20 05:30 O2 Sat by Pulse Oximetry (%) 97 02/07/20 05:30 Labs: CBC, BMP 02/05/20 06:30 02/05/20 06:30 INR, PTT INR 1.00 (0.83-1.09) 02/03/20 11:20 Problem List - Problems (1) Hematemesis Code(s): K92.0 - HEMATEMESIS Qualifiers: Nausea presence: unspecified Qualified Code(s): K92.0 - Hematemesis (2) Hiatal hernia Code(s): K44.9 - DIAPHRAGMATIC HERNIA WITHOUT OBSTRUCTION OR GANGRENE Assessment/Plan scheduled for Upper GI tomorrow NPO after midnight Will discuss plan for surgical repair after upper GI Will need medical and cardiac eval/clearance
--- NOTE | 2020-02-07 11:27 | PN ---
Progress Note, Physician - Current Medication List Current Medications: Active Medications Acetaminophen (Tylenol -) 650 mg PO Q4H PRN PRN Reason: PAIN SCALE 1-3 Last Admin: 02/06/20 22:35 Dose: 650 mg Documented by: Buspirone HCl (Buspar -) 30 mg PO BID [facility] Last Admin: 02/07/20 09:41 Dose: 30 mg Documented by: Clopidogrel Bisulfate (Plavix -) 75 mg PO DAILY [facility] Last Admin: 02/07/20 09:40 Dose: 75 mg Documented by: Nebivolol (Bystolic -) 5 mg PO DAILY [facility] Non-Formulary Medication (Cyclosporine [Restasis]) 1 each OP BID [facility] Ondansetron HCl (Zofran Injection) 4 mg IVPUSH Q6H PRN PRN Reason: NAUSEA AND/OR VOMITING Last Admin: 02/06/20 13:41 Dose: 4 mg Documented by: Pantoprazole Sodium (Protonix Iv) 40 mg IVPUSH BID [facility] Last Admin: 02/07/20 09:39 Dose: 40 mg Documented by: Senna (Senna -) 2 tab PO HS PRN PRN Reason: CONSTIPATION Last Admin: 02/06/20 22:11 Dose: 2 tab Documented by: Sertraline HCl (Zoloft -) 100 mg PO DAILY [facility] Last Admin: 02/07/20 09:40 Dose: 100 mg Documented by: Simethicone (Mylicon Liquid -) 80 mg PO QID [facility] Last Admin: 02/07/20 09:41 Dose: 80 mg Documented by: Sucralfate (Carafate Oral Suspension -) 1 gm PO QID [facility] Last Admin: 02/07/20 09:40 Dose: 1 gm Documented by: - Objective Vital Signs: Vital Signs Temperature 97.8 F 02/07/20 05:30 Pulse Rate 74 02/07/20 05:30 Respiratory Rate 18 02/07/20 05:30 Blood Pressure 186/109 H 02/07/20 05:30 O2 Sat by Pulse Oximetry (%) 97 02/07/20 05:30 Cardiovascular: Yes: Regular Rate and Rhythm Respiratory: Yes: Regular, CTA Bilaterally Gastrointestinal: Yes: Normal Bowel Sounds, Soft, Tenderness, Epigastrium Labs: CBC, BMP 02/05/20 06:30 02/05/20 06:30 INR, PTT INR 1.00 (0.83-1.09) 02/03/20 11:20 Assessment/Plan - Problems (1) Abdominal pain Assessment/Plan: -CTAP unremarkable except large hiatal hernia -Await GI consult--noted--surgical consult noted--GI SERIES AM -EGD 4 weeks ago showed PUD -PPI BID -Sucralfate 1 gm qid -Tolerating clear liquid diet-->advance to full liquid diet Problems reviewed: Yes Code(s): R10.9 - UNSPECIFIED ABDOMINAL PAIN Qualifiers: Abdominal location: unspecified location Qualified Code(s): R10.9 - Unspecified abdominal pain (2) Hematemesis Assessment/Plan: -No overt bleeding at this time -Resume plavix benefit>risk -Monitor Hg Problems reviewed: Yes Code(s): K92.0 - HEMATEMESIS Qualifiers: Nausea presence: unspecified Qualified Code(s): K92.0 - Hematemesis (3) Hiatal hernia Assessment/Plan: -Surgical consult Problems reviewed: Yes Code(s): K44.9 - DIAPHRAGMATIC HERNIA WITHOUT OBSTRUCTION OR GANGRENE (4) Accidental fall Assessment/Plan: -Safety precautions -Physical therapy Problems reviewed: Yes Code(s): W19.XXXA - UNSPECIFIED FALL, INITIAL ENCOUNTER
[2020-02-07] MEDS: SENNOSIDES 8.6MG TABLET (FP) PO PRN (21:47)
--- NOTE | 2020-02-08 08:03 | PN ---
Progress Note (short form) - Note Progress Note: GENERAL SURGERY 84 yo female with known large paraesophageal hernia. Scheduled for Upper GI today. Surgical plan pending results of todays study. Will need medical and cardiac eval/clearance Above discussed with Dr. Lyle and agrees.
[2020-02-08] MEDS: SIMETHICONE 40 MG/0.6 ML BOTTLE PO SCH ×5 (09:03→21:36)
[2020-02-08] MEDS: NEBIVOLOL 5 MG TABLET (FP) PO SCH ×2 (09:03→12:08)
[2020-02-08] MEDS: busPIRone HCL 10 MG TABLET (FP) PO SCH ×3 (09:03→21:16)
[2020-02-08] MEDS: SUCRALFATE 1 GM/10 ML UNIT DOSE CUPS PO SCH ×5 (09:03→21:16)
[2020-02-08] MEDS: SERTRALINE HCL 50 MG TABLET (FP) PO SCH ×2 (09:03→12:08)
[2020-02-08] MEDS: PANTOPRAZOLE SODIUM 40 MG VIAL IVPUSH SCH ×3 (09:51→21:17)
--- NOTE | 2020-02-08 11:10 | PN ---
Progress Note, Physician Chief Complaint: Hematemesis History of Present Illness: NAD in bed Returned from Upper GI series, c/o epigastric pain Seen by surgery for large hiatal hernia Denies any nausea, vomiting diarrhea today - Current Medication List Current Medications: Active Medications Acetaminophen (Tylenol -) 650 mg PO Q4H PRN PRN Reason: PAIN SCALE 1-3 Last Admin: 02/06/20 22:35 Dose: 650 mg Documented by: Buspirone HCl (Buspar -) 30 mg PO BID [facility] Last Admin: 02/08/20 09:03 Dose: Not Given Documented by: Clopidogrel Bisulfate (Plavix -) 75 mg PO DAILY [facility] Last Admin: 02/07/20 09:40 Dose: 75 mg Documented by: Nebivolol (Bystolic -) 5 mg PO DAILY [facility] Last Admin: 02/08/20 09:03 Dose: Not Given Documented by: Ondansetron HCl (Zofran Injection) 4 mg IVPUSH Q6H PRN PRN Reason: NAUSEA AND/OR VOMITING Last Admin: 02/06/20 13:41 Dose: 4 mg Documented by: Pantoprazole Sodium (Protonix Iv) 40 mg IVPUSH BID [facility] Last Admin: 02/08/20 09:51 Dose: Not Given Documented by: Senna (Senna -) 2 tab PO HS PRN PRN Reason: CONSTIPATION Last Admin: 02/07/20 21:47 Dose: 2 tab Documented by: Sertraline HCl (Zoloft -) 100 mg PO DAILY [facility] Last Admin: 02/08/20 09:03 Dose: Not Given Documented by: Simethicone (Mylicon Liquid -) 80 mg PO QID [facility] Last Admin: 02/08/20 09:03 Dose: Not Given Documented by: Sucralfate (Carafate Oral Suspension -) 1 gm PO QID [facility] Last Admin: 02/08/20 09:03 Dose: Not Given Documented by: - Objective Vital Signs: Vital Signs Temperature 98.1 F 02/08/20 10:00 Pulse Rate 68 02/08/20 10:00 Respiratory Rate 18 02/08/20 10:00 Blood Pressure 144/80 02/08/20 10:00 O2 Sat by Pulse Oximetry (%) 97 02/08/20 10:00 Constitutional: Yes: Well Nourished, No Distress, Calm, Obese Cardiovascular: Yes: Regular Rate and Rhythm Respiratory: Yes: Regular, CTA Bilaterally Gastrointestinal: Yes: Normal Bowel Sounds, Soft, Tenderness, Epigastrium Genitourinary: Yes: WNL Musculoskeletal: Yes: WNL Extremities: Yes: WNL Edema: No Peripheral Pulses WNL: Yes Neurological: Yes: Alert, Oriented Psychiatric: Yes: Alert, Oriented Labs: CBC, BMP 02/05/20 06:30 02/05/20 06:30 INR, PTT INR 1.00 (0.83-1.09) 02/03/20 11:20 Problem List - Problems (1) Abdominal pain Assessment/Plan: -03/10 pain right now -CTAP unremarkable except large hiatal hernia -GI consult -EGD 4 weeks ago showed PUD -PPI BID -Sucralfate 1 gm qid -continue clear liquid diet -Upper GI series -await results -Morphine 2 mg IVP once for pain Problems reviewed: Yes Code(s): R10.9 - UNSPECIFIED ABDOMINAL PAIN Qualifiers: Abdominal location: unspecified location Qualified Code(s): R10.9 - U nspecified abdominal pain (2) Hematemesis Assessment/Plan: -resolved -No overt bleeding at this time -Plavix on hold in case pt needs surgical intevention -Resume plavix benefit>risk after upper GI series -Monitor Hg Problems reviewed: Yes Code(s): K92.0 - HEMATEMESIS Qualifiers: Nausea presence: unspecified Qualified Code(s): K92.0 - Hematemesis (3) Hiatal hernia Assessment/Plan: -Surgical consult -CTAP large hiatal hernia causing no obstruction Problems reviewed: Yes Code(s): K44.9 - DIAPHRAGMATIC HERNIA WITHOUT OBSTRUCTION OR GANGRENE (4) Accidental fall Assessment/Plan: -Safety precautions -Physical therapy Problems reviewed: Yes Code(s): W19.XXXA - UNSPECIFIED FALL, INITIAL ENCOUNTER Assessment/Plan See problem list
[2020-02-08 11:57] LABS: BASO % 0.4 % (0-2.0); EOS % 0.9 % (0-4.5); HEMATOCRIT 37.1 % (32.4-45.2); HEMOGLOBIN 12.2 GM/dL (10.7-15.3); LYMPH % 21.1 % (8-40); MCH 23.9 pg (25.7-33.7); MEAN CELL VOLUME 72.6 fl (80-96); MEAN PLT VOLUME 7.6 fl (7.5-11.1); MONO % 9.2 % (3.8-10.2); NEUT % 68.4 % (42.8-82.8); PLATELET COUNT 247 K/MM3 (134-434); RBC 5.11 M/mm3 (3.60-5.2); RDW 19.3 % (11.6-15.6); WHITE BLOOD COUNT 6.7 K/mm3 (4.0-10.0)
[2020-02-08] MEDS: CLOPIDOGREL BISULFATE 75 MG TABLET (FP) PO SCH (11:58)
[2020-02-08] MEDS: ONDANSETRON 4 MG/2 ML VIAL IVPUSH PRN (12:07)
[2020-02-08 12:26] LABS: ALBUMIN 3.7 g/dl (3.4-5.0); BILIRUBIN,TOTAL 0.7 mg/dL (0.2-1); BLOOD UREA NITROGEN 8.9 mg/dL (7-18); CALCIUM 9.9 mg/dL (8.5-10.1); POTASSIUM 3.7 mmol/L (3.5-5.1); TOT PROT 8.3 g/dl (6.4-8.2)
[2020-02-08] MEDS ORDERED: MORPHINE SULFATE 2 MG/ML VIAL IVPUSH ONE (12:31)
--- NOTE | 2020-02-08 12:44 | PN ---
Progress Note, Physician Chief Complaint: No sob or chest pain History of Present Illness: 84 F ho ulcers, HTN, CVA. Adm with abd pain and possible hemoptysis. - Current Medication List Current Medications: Active Medications Acetaminophen (Tylenol -) 650 mg PO Q4H PRN PRN Reason: PAIN SCALE 1-3 Last Admin: 02/06/20 22:35 Dose: 650 mg Documented by: Buspirone HCl (Buspar -) 30 mg PO BID [facility] Last Admin: 02/08/20 12:07 Dose: 30 mg Documented by: Clopidogrel Bisulfate (Plavix -) 75 mg PO DAILY [facility] Last Admin: 02/08/20 11:58 Dose: Not Given Documented by: Enoxaparin Sodium (Lovenox -) 100 mg SQ BID [facility] Nebivolol (Bystolic -) 5 mg PO DAILY [facility] Last Admin: 02/08/20 12:08 Dose: 5 mg Documented by: Ondansetron HCl (Zofran Injection) 4 mg IVPUSH Q6H PRN PRN Reason: NAUSEA AND/OR VOMITING Last Admin: 02/08/20 12:07 Dose: 4 mg Documented by: Pantoprazole Sodium (Protonix Iv) 40 mg IVPUSH BID [facility] Last Admin: 02/08/20 12:07 Dose: 40 mg Documented by: Senna (Senna -) 2 tab PO HS PRN PRN Reason: CONSTIPATION Last Admin: 02/07/20 21:47 Dose: 2 tab Documented by: Sertraline HCl (Zoloft -) 100 mg PO DAILY [facility] Last Admin: 02/08/20 12:08 Dose: 100 mg Documented by: Simethicone (Mylicon Liquid -) 80 mg PO QID [facility] Last Admin: 02/08/20 12:08 Dose: 80 mg Documented by: Sucralfate (Carafate Oral Suspension -) 1 gm PO QID [facility] Last Admin: 02/08/20 12:08 Dose: 1 gm Documented by: - Objective Vital Signs: Vital Signs Temperature 98.1 F 02/08/20 10:00 Pulse Rate 68 02/08/20 10:00 Respiratory Rate 18 02/08/20 10:00 Blood Pressure 144/80 02/08/20 10:00 O2 Sat by Pulse Oximetry (%) 97 02/08/20 10:00 Constitutional: Yes: No Distress Neck: Yes: Supple Cardiovascular: Yes: Regular Rate and Rhythm, S1, S2. No: JVD, Murmur Respiratory: Yes: CTA Bilaterally Gastrointestinal: Yes: Soft Edema: No Labs: CBC, BMP 02/08/20 11:45 02/08/20 11:45 INR, PTT INR 1.00 (0.83-1.09) 02/03/20 11:20 Problem List - Problems (1) Hematemesis Code(s): K92.0 - HEMATEMESIS Qualifiers: Nausea presence: unspecified Qualified Code(s): K92.0 - Hematemesis Assessment/Plan 84 F ho ulcers, HTN, CVA. Adm with abd pain and possible hemoptysis. 1) Preop Planned for UGI series/egd Vitals are stable Moderate aortic regurgitation on echo in 2016 but no signs of chf on exam and no chf symptoms EKG sinus with no ischemic changes. No cardiac contraindications to UGI series/egd No further cardiac testing indicated prior to procedure at this time.
[2020-02-08] MEDS: ENOXAPARIN NA (PORCINE) 100 MG/1 ML DISP.SYRIN SQ SCH (21:17)
[2020-02-09 07:28] LABS: BASO % 0.4 % (0-2.0); EOS % 1.8 % (0-4.5); HEMATOCRIT 35.4 % (32.4-45.2); HEMOGLOBIN 11.7 GM/dL (10.7-15.3); LYMPH % 30.8 % (8-40); MCH 24.2 pg (25.7-33.7); MCHC 33.1 g/dl (32.0-36.0); MEAN CELL VOLUME 73.2 fl (80-96); MEAN PLT VOLUME 7.8 fl (7.5-11.1); MONO % 10.6 % (3.8-10.2); NEUT % 56.4 % (42.8-82.8); PLATELET COUNT 246 K/MM3 (134-434); RBC 4.84 M/mm3 (3.60-5.2)
[2020-02-09 07:44] LABS: ALBUMIN 3.6 g/dl (3.4-5.0); BLOOD UREA NITROGEN 10.6 mg/dL (7-18); CALCIUM 9.7 mg/dL (8.5-10.1); POTASSIUM 3.6 mmol/L (3.5-5.1)
[2020-02-09 07:50] LABS: BILIRUBIN,TOTAL 0.8 mg/dL (0.2-1); CREATININE 0.9 mg/dL (0.55-1.3); TOT PROT 7.9 g/dl (6.4-8.2)
--- NOTE | 2020-02-09 08:33 | PN ---
Progress Note (short form) - Note Progress Note: Patient seen and examined today She is comfortable and tolerating diet Upper GI reviewed there is organoaxial rotation but no evidence of mesoaxial volvulus She needs repair of paraesophageal hernia but no need for urgent intervention. In addition it would be in our best interest to get complete surgical history which patient does not recall. Will investigate with family and ideally diaz for semi-elective surgery. Advance to soft diet. Problem List - Problems (1) Hematemesis Code(s): K92.0 - HEMATEMESIS Qualifiers: Nausea presence: unspecified Qualified Code(s): K92.0 - Hematemesis (2) Hiatal hernia Code(s): K44.9 - DIAPHRAGMATIC HERNIA WITHOUT OBSTRUCTION OR GANGRENE
[2020-02-09] MEDS: PANTOPRAZOLE SODIUM 40 MG VIAL IVPUSH SCH ×2 (09:01→22:15)
[2020-02-09] MEDS: SUCRALFATE 1 GM/10 ML UNIT DOSE CUPS PO SCH ×4 (09:01→21:11)
[2020-02-09] MEDS: NEBIVOLOL 5 MG TABLET (FP) PO SCH (09:01)
[2020-02-09] MEDS: SIMETHICONE 40 MG/0.6 ML BOTTLE PO SCH ×4 (09:02→22:19)
[2020-02-09] MEDS: SERTRALINE HCL 50 MG TABLET (FP) PO SCH (09:02)
[2020-02-09] MEDS: ENOXAPARIN NA (PORCINE) 100 MG/1 ML DISP.SYRIN SQ SCH (09:02)
[2020-02-09] MEDS: busPIRone HCL 10 MG TABLET (FP) PO SCH ×2 (09:02→21:11)
--- NOTE | 2020-02-09 12:02 | PN ---
Progress Note, Physician Chief Complaint: Hematemesis Abdominal pain Large hiatal hernia History of Present Illness: NAD, sitting in chair, decreased appetite Upper GI series, no outlet obstruction Seen by surgery for large hiatal hernia-needs repair of paraesophageal hernia but no need for urgent intervention Denies any nausea, vomiting diarrhea today Seen by Surgery this AM, started on soft diet- if tolerated pt can be discharged home with VNS currently c/o epigastric pain even before she has started eating her lunch - Current Medication List Current Medications: Active Medications Acetaminophen (Tylenol -) 650 mg PO Q4H PRN PRN Reason: PAIN SCALE 1-3 Last Admin: 02/06/20 22:35 Dose: 650 mg Documented by: Buspirone HCl (Buspar -) 30 mg PO BID [facility] Last Admin: 02/09/20 09:02 Dose: 30 mg Documented by: Clopidogrel Bisulfate (Plavix -) 75 mg PO DAILY [facility] Last Admin: 02/08/20 11:58 Dose: Not Given Documented by: Nebivolol (Bystolic -) 5 mg PO DAILY [facility] Last Admin: 02/09/20 09:01 Dose: 5 mg Documented by: Ondansetron HCl (Zofran Injection) 4 mg IVPUSH Q6H PRN PRN Reason: NAUSEA AND/OR VOMITING Last Admin: 02/08/20 12:07 Dose: 4 mg Documented by: Pantoprazole Sodium (Protonix Iv) 40 mg IVPUSH BID [facility] Last Admin: 02/09/20 09:01 Dose: 40 mg Documented by: Senna (Senna -) 2 tab PO HS PRN PRN Reason: CONSTIPATION Last Admin: 02/07/20 21:47 Dose: 2 tab Documented by: Sertraline HCl (Zoloft -) 100 mg PO DAILY [facility] Last Admin: 02/09/20 09:02 Dose: 100 mg Documented by: Simethicone (Mylicon Liquid -) 80 mg PO QID [facility] Last Admin: 02/09/20 09:02 Dose: 80 mg Documented by: Sucralfate (Carafate Oral Suspension -) 1 gm PO QID [facility] Last Admin: 02/09/20 09:01 Dose: 1 gm Documented by: - Objective Vital Signs: Vital Signs Temperature 98.5 F 02/09/20 10:00 Pulse Rate 69 02/09/20 10:00 Respiratory Rate 18 02/09/20 10:00 Blood Pressure 153/78 02/09/20 10:00 O2 Sat by Pulse Oximetry (%) 98 02/09/20 10:00 Constitutional: Yes: Well Nourished, No Distress, Calm Cardiovascular: Yes: Regular Rate and Rhythm Respiratory: Yes: Regular, CTA Bilaterally Gastrointestinal: Yes: Normal Bowel Sounds, Soft Genitourinary: Yes: WNL Musculoskeletal: Yes: WNL Extremities: Yes: WNL Edema: No Peripheral Pulses WNL: Yes Neurological: Yes: Alert, Oriented Psychiatric: Yes: Alert, Oriented Labs: CBC, BMP 02/09/20 06:30 02/09/20 06:30 INR, PTT INR 1.00 (0.83-1.09) 02/03/20 11:20 Problem List - Problems (1) Abdominal pain Assessment/Plan: -03/10 pain right now -CTAP unremarkable except large hiatal hernia -GI consult to re-consult -EGD 4 weeks ago showed PUD -PPI BID -Sucralfate 1 gm qid -Soft diet -Upper GI series -no outlet obstruction -Mylanta once Problems reviewed: Yes Code(s): R10.9 - UNSPECIFIED ABDOMINAL PAIN Qualifiers: Abdominal location: unspecified location Qualified Code(s): R10.9 - Unspecified abdominal pain (2) Hematemesis Assessment/Plan: -resolved -No overt bleeding at this time -D/C lovenox -Restart Plavix -Monitor Hg Problems reviewed: Yes Code(s): K92.0 - HEMATEMESIS Qualifiers: Nausea presence: unspecified Qualified Code(s): K92.0 - Hematemesis (3) Hiatal hernia Assessment/Plan: -Surgical consult -CTAP large hiatal hernia causing no obstruction -GI series- large hiatal hernia but no outlet obstruction Problems reviewed: Yes Code(s): K44.9 - DIAPHRAGMATIC HERNIA WITHOUT OBSTRUCTION OR GANGRENE (4) Accidental fall Assessment/Plan: -Safety precautions -Physical therapy Problems reviewed: Yes Code(s): W19.XXXA - UNSPECIFIED FALL, INITIAL ENCOUNTER Assessment/Plan See problem list Spoke to daughter Anh (Leslie), GD- Veronica and son about pt status
[2020-02-09] MEDS ORDERED: MAG HYDROX/AL HYDROX/SIMETH 30 ML UNIT-DOSE CUP PO ONE (12:24)
[2020-02-09] MEDS ORDERED: ACETAMINOPHEN 1000 MG/100 ML VIAL (NON FORMULARY) IVPB ONE (12:42)
[2020-02-09] MEDS ORDERED: ACETAMINOPHEN 325 MG TABLET (FP) PO PRN (12:43)
[2020-02-09] MEDS: ONDANSETRON 4 MG/2 ML VIAL IVPUSH PRN (13:13)
--- NOTE | 2020-02-09 17:01 | DS ---
Physical Examination Vital Signs: Vital Signs Temperature 97.5 F L 02/09/20 15:23 Pulse Rate 70 02/09/20 15:23 Respiratory Rate 18 02/09/20 15:23 Blood Pressure 145/78 02/09/20 15:23 O2 Sat by Pulse Oximetry (%) 95 02/09/20 15:23 Findings/Remarks: The patient is an 84 year old female with a significant PMH of stomach ulcers, HTN and anxiety who presents to the emergency department for evaluation of abdominal pain s/p fall Saturday evening (01/29/20). Per patient's granddaughter on the bedside, the patient fell forward hitting her abdomen and head causing right sided flank bruising and right-sided abdominal pain that has progressively worsened. Patient then notes that she developed a headache. Per granddaughter, this morning patient had an episode of hemoptysis so she was brought into the ED. She also endorses dizziness when turning her head. The patient denies chest pain, shortness of breath. Denies fever, chills, nausea, vomiting, diarrhea and constipation. Denies dysuria, frequency, urgency and hematuria. (1) Abdominal pain Assessment/Plan: -9/10 pain right now -CTAP unremarkable except large hiatal hernia -F/U with GI outpatient -EGD 4 weeks ago showed PUD -pantoprazole BID -Sucralfate 1 gm qid -Soft diet -Upper GI series -no outlet obstruction Problems reviewed: Yes Code(s): R10.9 - UNSPECIFIED ABDOMINAL PAIN Qualifiers: Abdominal location: unspecified location Qualified Code(s): R10.9 - Unspecified abdominal pain (2) Hematemesis Assessment/Plan: -resolved -No overt bleeding at this time -Continue Plavix bid -Monitor Hg Problems reviewed: Yes Code(s): K92.0 - HEMATEMESIS Qualifiers: Nausea presence: unspecified Qualified Code(s): K92.0 - Hematemesis (3) Hiatal hernia Assessment/Plan: -Surgical consult -CTAP large hiatal hernia causing no obstruction -GI series- large hiatal hernia but no outlet obstruction Problems reviewed: Yes Code(s): K44.9 - DIAPHRAGMATIC HERNIA WITHOUT OBSTRUCTION OR GANGRENE (4) Accidental fall Assessment/Plan: -Safety precautions -Physical therapy Problems reviewed: Yes Code(s): W19.XXXA - UNSPECIFIED FALL, INITIAL ENCOUNTER Assessment/Plan See problem list Spoke to daughter Anh (Leslie), GD- Veronica and son about pt status Constitutional: Yes: Well Nourished, No Distress, Calm, Obese Cardiovascular: Yes: Regular Rate and Rhythm Respiratory: Yes: Regular, CTA Bilaterally Gastrointestinal: Yes: Normal Bowel Sounds, Soft Renal/: Yes: WNL Musculoskeletal: Yes: WNL Extremities: Yes: WNL Edema: No Peripheral Pulses WNL: Yes Neurological: Yes: Alert, Oriented Psychiatric: Yes: Alert, Oriented Labs: CBC, BMP 02/09/20 06:30 02/09/20 06:30 Discharge Summary Problems reviewed: Yes Reason For Visit: EPIGASTRIC PAIN HEMATEMESIS Current Active Problems Abdominal pain (Acute) Hematemesis (Acute) Hiatal hernia (Acute) Paraesophageal hernia (Acute) Condition: Stable - Instructions Referrals: Damián Gutierrez MD [Staff Physician] - Amber Barnes MD [Primary Care Provider] - Miguel Ángel Lyle [Staff Physician] - Disposition: HOME - Home Medications Comprehensive Discharge Medication List: Ambulatory Orders Nebivolol [Bystolic -] 5 mg PO DAILY 05/11/16 Clopidogrel Bisulfate [Plavix] 75 mg PO DAILY 03/19/18 Gabapentin 300 mg PO TID 03/19/18 Acetaminophen [Mapap] 1,000 mg PO QID PRN 06/01/19 Buspirone HCl [Buspar -] 30 mg PO BID 06/01/19 Cyclosporine [Restasis] 1 each OP BID 06/01/19 Acetaminophen [Tylenol .Regular Strength -] 1,000 mg PO Q6H PRN tablet 02/09/20 Ondansetron [Zofran *Odt*] 4 mg GT Q6H PRN #120 tab.rapdis 02/09/20 Pantoprazole Sodium [Protonix -] 40 mg PO BID #60 tablet.ec 02/09/20 Sennosides [Senna -] 2 tab PO HS PRN #60 tablet 02/09/20 Sertraline HCl 200 mg PO DAILY #60 tablet 02/09/20 Simethicone Liquid [Mylicon Liquid -] 80 mg PO QID #1 bot 02/09/20 Sucralfate [Carafate -] 1 gm PO QID #120 tablet 02/09/20 Prescription Drug Monitoring Program (I-STOP) results: I-STOP reviewed and no issues identified
[2020-02-09] MEDS ORDERED: amLODIPine BESYLATE 5 MG TABLET (FP) PO ONE (20:33)
--- NOTE | 2020-02-09 20:38 | HOSP ---
Subjective - Review of Symptoms Events since last encounter: Paged by covering RN (Jelena Diego) that patient is scheduled for discharge and [facility] is present to transport patient. vitals check - BP 161/114 on automated machine and 170/90 manually. Pt has no complaints. norvasc 5mg x 1 dose given and pt to be observed overnight. Primary team to determine appropriate addon agent for discharge, in order to improve BP goal. Pt can follow up PCP for routine BP management post discharge. [facility] left prior to provider speaking with Nurse Physical Examination Vital Signs: Vital Signs Temperature 97.9 F 02/09/20 20:25 Pulse Rate 79 02/09/20 20:25 Respiratory Rate 18 02/09/20 20:25 Blood Pressure 170/90 02/09/20 20:25 O2 Sat by Pulse Oximetry (%) 99 02/09/20 20:25 Labs: CBC, BMP 02/09/20 06:30 02/09/20 06:30
--- NOTE | 2020-02-10 04:19 | FALL ---
Fall Exam - Event Witnessed fall: No Location of Fall: Patient Room Fall from: While ambulating - Pre-Fall Mental Status: Oriented Current Medications: Current Medications Generic Name Dose Route Start Last Admin Trade Name Frebassam PRN Reason Stop Dose Admin Acetaminophen 1,000 mg 02/09/20 12:43 Tylenol - PO Q6H PRN PAIN SCALE 1-3 Buspirone HCl 30 mg 02/03/20 22:00 02/09/20 21:11 Buspar - PO 30 mg BID [facility] Administration Clopidogrel Bisulfate 75 mg 02/04/20 20:30 02/08/20 11:58 Plavix - PO Not Given DAILY [facility] Nebivolol 5 mg 02/08/20 10:00 02/09/20 09:01 Bystolic - PO 5 mg DAILY [facility] Administration Ondansetron HCl 4 mg 02/04/20 09:42 02/09/20 13:13 Zofran Injection IVPUSH 4 mg Q6H PRN Administration NAUSEA AND/OR VOMITING Pantoprazole Sodium 40 mg 02/03/20 22:00 02/09/20 22:15 Protonix Iv IVPUSH Not Given BID [facility] Senna 2 tab 02/05/20 20:02 02/07/20 21:47 Senna - PO 2 tab HS PRN Administration CONSTIPATION Sertraline HCl 100 mg 02/04/20 10:00 02/09/20 09:02 Zoloft - PO 100 mg DAILY [facility] Administration Simethicone 80 mg 02/06/20 23:23 02/09/20 22:19 Mylicon Liquid - PO 80 mg QID [facility] Administration Sucralfate 1 gm 02/03/20 18:00 02/09/20 21:11 Carafate Oral Suspension - PO 1 gm QID [facility] Administration - Post-Fall Patient Outcome: No Injury Treatment: None Vital Signs: Vital Signs Temperature 97.5 F L 02/10/20 03:16 Pulse Rate 82 02/10/20 03:16 Respiratory Rate 18 02/10/20 03:16 Blood Pressure 157/73 02/10/20 03:16 O2 Sat by Pulse Oximetry (%) 95 02/10/20 03:16 LOC Post-Fall: Awake Identify factors for HIGH RISK for Head Injury: Pt on anticoagulant (plavix)
--- NOTE | 2020-02-10 08:26 | PN ---
Progress Note (short form) - Note Progress Note: Surgery note: Pt without any nausea or emesis overnight. No, no pain medications overnight. Vital Signs Period Temp Pulse Resp BP Sys/Thakkar Pulse Ox Last 24 Hr 97.5 F-98.5 F 61-82 18-20 145-185/67-90 94-99 GEN: A&0x3, NAd oob to chair ABD: soft. non-distended, Mild RUQ tenderness CBC, BMP 02/09/20 06:30 02/09/20 06:30 A/p: 84 yo female with large paraesphageal hernia D/w Dr. Vizcarra and will plan for semi-elective repair of paraesophageal hernia May advance diet to soft today, she denies pain and not using pain medications, plavix resumed. Follow up with Dr. Escoto in the office
[2020-02-10] MEDS ORDERED: PT OWN MED DRAWER 7, Y5N ONE ×3 (08:54→13:24)
[2020-02-10] MEDS: SERTRALINE HCL 50 MG TABLET (FP) PO SCH (09:08)
[2020-02-10] MEDS: SIMETHICONE 40 MG/0.6 ML BOTTLE PO SCH ×2 (09:08→13:30)
[2020-02-10] MEDS: CLOPIDOGREL BISULFATE 75 MG TABLET (FP) PO SCH (09:08)
[2020-02-10] MEDS: SUCRALFATE 1 GM/10 ML UNIT DOSE CUPS PO SCH ×2 (09:08→13:30)
[2020-02-10] MEDS: NEBIVOLOL 5 MG TABLET (FP) PO SCH (09:08)
[2020-02-10] MEDS: busPIRone HCL 10 MG TABLET (FP) PO SCH (09:11)
--- NOTE | 2020-02-10 09:55 | PN ---
Progress Note, Physician Chief Complaint: Hematemesis Abdominal pain Large hiatal hernia History of Present Illness: NAD, sitting in chair, decreased appetite Upper GI series, no outlet obstruction Seen by surgery for large hiatal hernia-needs repair of paraesophageal hernia but no need for urgent intervention Denies any nausea, vomiting diarrhea today Seen by Surgery this AM, started on soft diet- if tolerated pt can be discharged home with VNS currently c/o epigastric pain even before she has started eating her lunch Discharge cancelled last evening 2/2 to high BP reading, given amlodipine 5 mg once- BP improved Then pt had unwitnessed fall overnight while trying to use bedside commode CT head negative - Current Medication List Current Medications: Active Medications Acetaminophen (Tylenol -) 1,000 mg PO Q6H PRN PRN Reason: PAIN SCALE 1-3 Buspirone HCl (Buspar -) 30 mg PO BID [facility] Last Admin: 02/10/20 09:11 Dose: 30 mg Documented by: Clopidogrel Bisulfate (Plavix -) 75 mg PO DAILY [facility] Last Admin: 02/10/20 09:08 Dose: 75 mg Documented by: Lisinopril (Prinivil) 5 mg PO DAILY [facility] Nebivolol (Bystolic -) 5 mg PO DAILY [facility] Last Admin: 02/10/20 09:08 Dose: 5 mg Documented by: Ondansetron HCl (Zofran Injection) 4 mg IVPUSH Q6H PRN PRN Reason: NAUSEA AND/OR VOMITING Last Admin: 02/09/20 13:13 Dose: 4 mg Documented by: Pantoprazole Sodium (Protonix Iv) 40 mg IVPUSH BID [facility] Last Admin: 02/09/20 22:15 Dose: Not Given Documented by: Senna (Senna -) 2 tab PO HS PRN PRN Reason: CONSTIPATION Last Admin: 02/07/20 21:47 Dose: 2 tab Documented by: Sertraline HCl (Zoloft -) 100 mg PO DAILY [facility] Last Admin: 02/10/20 09:08 Dose: 100 mg Documented by: Simethicone (Mylicon Liquid -) 80 mg PO QID [facility] Last Admin: 02/10/20 09:08 Dose: 80 mg Documented by: Sucralfate (Carafate Oral Suspension -) 1 gm PO QID [facility] Last Admin: 02/10/20 09:08 Dose: 1 gm Documented by: - Objective Vital Signs: Vital Signs Temperature 97.9 F 02/10/20 06:13 Pulse Rate 68 02/10/20 06:13 Respiratory Rate 18 02/10/20 06:13 Blood Pressure 151/80 02/10/20 06:13 O2 Sat by Pulse Oximetry (%) 95 02/10/20 03:16 Constitutional: Yes: Well Nourished, No Distress, Calm, Obese Cardiovascular: Yes: Regular Rate and Rhythm Respiratory: Yes: Regular, CTA Bilaterally Gastrointestinal: Yes: Normal Bowel Sounds, Soft, Abdomen, Obese Genitourinary: Yes: WNL Musculoskeletal: Yes: Muscle Weakness Extremities: Yes: WNL Edema: No Peripheral Pulses WNL: Yes Neurological: Yes: Alert, Oriented Psychiatric: Yes: Alert, Oriented Labs: CBC, BMP 02/09/20 06:30 02/09/20 06:30 INR, PTT INR 1.00 (0.83-1.09) 02/03/20 11:20 Problem List - Problems (1) Abdominal pain Assessment/Plan: -9/10 pain right now -CTAP unremarkable except large hiatal hernia -GI consult to re-consult -EGD 4 weeks ago showed PUD -PPI BID -Sucralfate 1 gm qid -Soft diet -Upper GI series -no outlet obstruction -Mylanta once Problems reviewed: Yes Code(s): R10.9 - UNSPECIFIED ABDOMINAL PAIN Qualifiers: Abdominal location: unspecified location Qualified Code(s): R10.9 - Unspecified abdominal pain (2) Hematemesis Assessment/Plan: -resolved -No overt bleeding at this time -D/C lovenox -Restart Plavix -Monitor Hg Problems reviewed: Yes Code(s): K92.0 - HEMATEMESIS Qualifiers: Nausea presence: unspecified Qualified Code(s): K92.0 - Hematemesis (3) Hiatal hernia Assessment/Plan: -Surgical consult -CTAP large hiatal hernia causing no obstruction -GI series- large hiatal hernia but no outlet obstruction Problems reviewed: Yes Code(s): K44.9 - DIAPHRAGMATIC HERNIA WITHOUT OBSTRUCTION OR GANGRENE (4) Accidental fall Assessment/Plan: -Safety precautions -Physical therapy at home Problems reviewed: Yes Code(s): W19.XXXA - UNSPECIFIED FALL, INITIAL ENCOUNTER (5) Hypertension Assessment/Plan: -Continue bystolic 5 mg po daily -Add Lisinopril 5 mg po daily in AM Problems reviewed: Yes Code(s): I10 - ESSENTIAL (PRIMARY) HYPERTENSION (6) Anxiety Assessment/Plan: -Increase sertraline to 200 mg po daily Problems reviewed: Yes Code(s): F41.9 - ANXIETY DISORDER, UNSPECIFIED Assessment/Plan See problem list Spoke to Veronica (Grandadaughter) at [phone], that pt is okay to be discharged today.
[2020-02-10] MEDS ORDERED: LISINOPRIL 5 MG TABLET (FP) PO SCH (10:00)
[2020-02-10] MEDS: PANTOPRAZOLE SODIUM 40 MG VIAL IVPUSH SCH (10:09)
[2020-02-10 11:18] VITALS: TEMP 97.5
[2020-02-10 12:25] VITALS: BP 160/77; PULSE 69
== END 2020-02-10 14:17 | disposition home health service (06) | DRG 392 ==
LOC: JER 09:53 → JERBED 15:15 → J7W 22:13
PROVIDERS: ADMIT Family Medicine; ATTEND Family Medicine
DX: K44.9 Diaphragmatic hernia without obstruction or gangrene (principal); K92.0 Hematemesis; I10 Essential (primary) hypertension; F41.9 Anxiety disorder, unspecified; Z88.0 Allergy status to penicillin; Z86.73 Personal history of transient ischemic attack (TIA), and cerebral infarction without residual deficits; E66.9 Obesity, unspecified; Z68.38 Body mass index [BMI] 38.0-38.9, adult
CPT/HCPCS: 36415; 70450-TC; 71045-TC-FY; 74176-TC; 74246-TC-FY; 80053; 81003; 82272; 82550; 83690; 84484; 85025; 85610; 87086; 87186; 93005; 93010; 97116-GP; 97162-GP; 99285-25; J0131; U0003

== ENCOUNTER 2021-04-24 13:23 | Emergency (ER) | payer OTHER ==
[2021-04-24] MEDS ORDERED: LACTATED RINGERS SOLUTION 1,000 ML IV STA (15:24)
[2021-04-24] MEDS ORDERED: ACETAMINOPHEN 1000 MG/100 ML VIAL IVPB ONE (15:24)
[2021-04-24] MEDS ORDERED: SODIUM CHLORIDE 0.9% 500 ML INFUS.BAG IV ONE (15:26)
[2021-04-24] MEDS ORDERED: LIDOCAINE VISCOUS 2% ORAL/TOP 15 ML UNIT-DOSE CUP MM ONE (15:27)
[2021-04-24] MEDS ORDERED: MAG HYDROX/AL HYDROX/SIMETH 30 ML UNIT-DOSE CUP PO ONE (15:27)
[2021-04-24] MEDS ORDERED: FAMOTIDINE 20 MG TABLET PO ONE (15:27)
[2021-04-24] MEDS ORDERED: ONDANSETRON 4 MG TABLET PO ONE (15:30)
[2021-04-24] MEDS ORDERED: SUCRALFATE 1 GM/10 ML UNIT DOSE CUPS PO ONE (15:35)
[2021-04-24 15:38] LABS: EPI CELLS 12 /uL (0-25.1); HYALINE CASTS 12 /uL (0-3.1); PH,URINE 8.5 (5.0-8.0); URINE APPEARANCE CLOUDY; URINE BACTERIA 1743 /uL (0-1359); URINE BILIRUBIN NEGATIVE (NEGATIVE); URINE COLOR YELLOW; URINE GLUCOSE (UA) NEGATIVE (NEGATIVE); URINE KETONE NEGATIVE (NEGATIVE); URINE LEUK ESTERASE 3+ (NEGATIVE); URINE NITRITE NEGATIVE (NEGATIVE); URINE PROTEIN 1+ (NEGATIVE); URINE RBC 43 /uL (0-23.9); URINE UROBILINOGEN 0.2 mg/dL (0.2-1.0); URINE WBC 875 /uL (0-25.8)
[2021-04-24] MEDS ORDERED: CEFTRIAXONE 1 GM in DEXTROSE 5%-WATER - 100 ML IVPB ONE (16:06)
[2021-04-24] MEDS ORDERED: MAG HYDROX/AL HYDROX/SIMETH 30 ML UNIT-DOSE CUP ONE (16:31)
[2021-04-24] MEDS ORDERED: FAMOTIDINE 20 MG TABLET ONE (16:31)
[2021-04-24] MEDS ORDERED: LIDOCAINE VISCOUS 2% ORAL/TOP 15 ML UNIT-DOSE CUP ONE (16:31)
[2021-04-24] MEDS ORDERED: ONDANSETRON *ODT* 4 MG TABLET ONE (16:31)
[2021-04-24] MEDS ORDERED: SUCRALFATE 1 GM TABLET (FP) ONE (16:31)
[2021-04-24 17:16] VITALS: TEMP 98.4; BMI 41.1
[2021-04-24] MEDS ORDERED: CEFTRIAXONE 1 GM/50 ML BAG ONE (17:16)
[2021-04-24] MEDS ORDERED: ACETAMINOPHEN INJECTION 100 ML IVPB ONE (17:29)
[2021-04-24 17:39] LABS: BASO % 0.4 % (0-2.0); EOS % 0.8 % (0-4.5); HEMATOCRIT 37.5 % (32.4-45.2); HEMOGLOBIN 12.7 GM/dL (10.7-15.3); LYMPH % 28.4 % (8-40); MCH 25.8 pg (25.7-33.7); MCHC 33.7 g/dl (32.0-36.0); MEAN CELL VOLUME 76.5 fl (80-96); MEAN PLT VOLUME 7.8 fl (7.5-11.1); MONO % 10.1 % (3.8-10.2); NEUT % 60.3 % (42.8-82.8); PLATELET COUNT 239 10^3/uL (134-434); RBC 4.91 M/mm3 (3.60-5.2); RDW 17.6 % (11.6-15.6); WHITE BLOOD COUNT 8.5 K/mm3 (4.0-10.0)
[2021-04-24 18:05] LABS: BLOOD UREA NITROGEN 14.1 mg/dL (7-18); CALCIUM 10.3 mg/dL (8.5-10.1)
[2021-04-24 18:06] LABS: ALBUMIN 3.9 g/dl (3.4-5.0)
[2021-04-24 18:09] LABS: CREATININE 0.9 mg/dL (0.55-1.3)
[2021-04-24 18:10] LABS: BILIRUBIN,TOTAL 0.6 mg/dL (0.2-1); TOT PROT 9.1 g/dl (6.4-8.2)
[2021-04-24 20:30] VITALS: BP 142/70; PULSE 70
== END 2021-04-24 20:30 | disposition home or self-care (01) ==
LOC: JER 13:23
PROC: 3E0333Z Introduction of Anti-inflammatory into Peripheral Vein, Percutaneous Approach (ICD-10-PCS; principal; 2021-04-24)
PROC: 3E03329 Introduction of Other Anti-infective into Peripheral Vein, Percutaneous Approach (ICD-10-PCS; 2021-04-24)
DX: N39.0 Urinary tract infection, site not specified (principal)
CPT/HCPCS: 36415; 71045-TC-FY; 74177-TC; 80053; 81003; 82550; 83605; 83690; 84484; 85025; 87086; 87186; 93005; 93010; 96374; 96375; 99285-25; J0131; Q9967

== ENCOUNTER 2021-09-13 19:24 | Observation (INO) | payer OTHER ==
[2021-09-13 19:51] VITALS: BMI 59.4
[2021-09-13] MEDS ORDERED: FAMOTIDINE 20 MG/50 ML IVPB 20 MG/50 ML MG IVPB ONE ×2 (19:55→20:07)
[2021-09-13] MEDS ORDERED: SODIUM CHLORIDE 0.9% 500 ML INFUS.BAG IV ONE (19:55)
[2021-09-13] MEDS ORDERED: MAG HYDROX/AL HYDROX/SIMETH 30 ML UNIT-DOSE CUP PO ONE (19:55)
[2021-09-13] MEDS ORDERED: ACETAMINOPHEN 1000 MG/100 ML BAG IVPB ONE (19:56)
[2021-09-13] MEDS ORDERED: ACETAMINOPHEN INJECTION 100 ML IVPB ONE (20:07)
[2021-09-13] MEDS ORDERED: MAG HYDROX/AL HYDROX/SIMETH 30 ML UNIT-DOSE CUP ONE (20:07)
[2021-09-13 20:46] LABS: BASO % 0.4 % (0-2.0); EOS % 0.8 % (0-4.5); HEMATOCRIT 36.9 % (32.4-45.2); HEMOGLOBIN 12.4 GM/dL (10.7-15.3); LYMPH % 9.4 % (8-40); MCH 25.5 pg (25.7-33.7); MCHC 33.5 g/dl (32.0-36.0); MEAN PLT VOLUME 8.3 fl (7.5-11.1); MONO % 7.7 % (3.8-10.2); NEUT % 81.7 % (42.8-82.8); PLATELET COUNT 232 10^3/uL (134-434); RBC 4.86 M/mm3 (3.60-5.2); RDW 16.2 % (11.6-15.6); WHITE BLOOD COUNT 9.4 K/mm3 (4.0-10.0)
[2021-09-13 20:54] LABS: INR 1.09 (0.83-1.09); PROTHROMBIN TIME (PATIENT) 12.6 SEC (9.7-13.0)
[2021-09-13 20:56] LABS: ACTIVATED PTT 27.3 SECONDS (25.2-36.5)
[2021-09-13 21:04] LABS: CHLORIDE 104 mmol/L (98-107); SODIUM 135 mmol/L (136-145)
[2021-09-13 21:07] LABS: ALBUMIN 3.5 g/dl (3.4-5.0); CALCIUM 9.2 mg/dL (8.5-10.1); CO2 27 mmol/L (21-32); LIPASE 63 U/L (73-393)
[2021-09-13 21:08] LABS: BLOOD UREA NITROGEN 21.8 mg/dL (7-18); GLUCOSE,RANDOM 85 mg/dL (74-106); MAGNESIUM 2.7 mg/dL (1.8-2.4)
[2021-09-13 21:10] LABS: SGOT/AST 89 U/L (15-37)
[2021-09-13 21:12] LABS: BILIRUBIN,TOTAL 0.7 mg/dL (0.2-1); TOT PROT 8.2 g/dl (6.4-8.2)
[2021-09-13 21:13] LABS: ALK PHOS 129 U/L (45-117)
[2021-09-13 21:43] LABS: ANION GAP 3 MMOL/L (8-16); SGPT/ALT 30 U/L (13-61)
[2021-09-13] MEDS ORDERED: ONDANSETRON 4 MG/2 ML VIAL IVPUSH ONE (22:24)
[2021-09-13] MEDS ORDERED: ONDANSETRON 4 MG/2 ML VIAL ONE (23:48)
[2021-09-14 00:17] LABS: CALCIUM 8.2 mg/dL (8.5-10.1)
[2021-09-14 00:18] LABS: BLOOD UREA NITROGEN 21.5 mg/dL (7-18)
[2021-09-14] MEDS ORDERED: ONDANSETRON 4 MG/2 ML VIAL IVPUSH PRN (01:07)
[2021-09-14 01:55] LABS: EPI CELLS 27 /uL (0-25.1); HYALINE CASTS 2 /uL (0-3.1); URINE APPEARANCE CLOUDY; URINE BACTERIA >9,000 /uL (0-1359); URINE BILIRUBIN NEGATIVE (NEGATIVE); URINE COLOR YELLOW; URINE GLUCOSE (UA) NEGATIVE (NEGATIVE); URINE KETONE NEGATIVE (NEGATIVE); URINE LEUK ESTERASE 2+ (NEGATIVE); URINE NITRITE POSITIVE (NEGATIVE); URINE PROTEIN TRACE (NEGATIVE); URINE RBC 153 /uL (0-23.9); URINE UROBILINOGEN 0.2 mg/dL (0.2-1.0); URINE WBC 1345 /uL (0-25.8)
[2021-09-14] MEDS ORDERED: CEFTRIAXONE 1 GM in DEXTROSE 5%-WATER - 50 ML IVPB ONE (03:51)
[2021-09-14] MEDS ORDERED: CEFTRIAXONE 1 GM/50 ML BAG ONE (05:42)
[2021-09-14 07:16] LABS: HEMATOCRIT 32.4 % (32.4-45.2); HEMOGLOBIN 11.2 GM/dL (10.7-15.3); MCHC 34.7 g/dl (32.0-36.0); MEAN CELL VOLUME 74.8 fl (80-96); MEAN PLT VOLUME 7.6 fl (7.5-11.1); PLATELET COUNT 191 10^3/uL (134-434); RBC 4.33 M/mm3 (3.60-5.2); RDW 15.8 % (11.6-15.6); WHITE BLOOD COUNT 7.5 K/mm3 (4.0-10.0)
[2021-09-14 07:43] LABS: CALCIUM 8.8 mg/dL (8.5-10.1)
[2021-09-14 07:44] LABS: ALBUMIN 3.2 g/dl (3.4-5.0); BLOOD UREA NITROGEN 21.9 mg/dL (7-18)
[2021-09-14 07:48] LABS: BILIRUBIN,TOTAL 0.4 mg/dL (0.2-1); TOT PROT 6.9 g/dl (6.4-8.2)
[2021-09-14 10:44] LABS: ANISOCYTOSIS 2+; MACROCYTOSIS 0; OVALOCYTE 1+; TARGET CELLS 2+; TEAR DROP CELLS 1+
[2021-09-14] MEDS: busPIRone HCL 10 MG TABLET (FP) PO SCH ×2 (14:18→22:03)
[2021-09-14] MEDS: FAMOTIDINE 20 MG/50 ML IVPB 20 MG/50 ML MG IVPB SCH ×2 (14:25→22:04)
[2021-09-15] MEDS ORDERED: DEXTROSE 5%-WATER - 50 ML IVPB ONE (09:20)
[2021-09-15] MEDS ORDERED: cefTRIAXone SODIUM 1 GM VIAL ONE (09:20)
[2021-09-15] MEDS: FAMOTIDINE 20 MG/50 ML IVPB 20 MG/50 ML MG IVPB SCH (09:24)
[2021-09-15] MEDS: busPIRone HCL 10 MG TABLET (FP) PO SCH (09:25)
[2021-09-15] MEDS ORDERED: CEFTRIAXONE 1 GM in DEXTROSE 5%-WATER - 50 ML IVPB SCH (10:00)
[2021-09-15] MEDS ORDERED: HALOPERIDOL LACTATE 5 MG/ML IM ONE (15:34)
[2021-09-15] MEDS ORDERED: HALOPERIDOL LACTATE 5 MG/ML ONE (15:37)
[2021-09-15 17:24] VITALS: BP 149/58; PULSE 78; TEMP 98.4
== END 2021-09-15 16:20 | disposition left against medical advice (07) ==
LOC: JER 19:24 → JERBED 09-14 00:28 → J4S 09-14 09:46
PROVIDERS: ADMIT Internal Medicine; ATTEND Family Medicine
PROC: 3E0337Z Introduction of Electrolytic and Water Balance Substance into Peripheral Vein, Percutaneous Approach (ICD-10-PCS; principal; 2021-09-14)
PROC: 3E033GC Introduction of Other Therapeutic Substance into Peripheral Vein, Percutaneous Approach (ICD-10-PCS; 2021-09-14)
PROC: 3E023GC Introduction of Other Therapeutic Substance into Muscle, Percutaneous Approach (ICD-10-PCS; 2021-09-14)
PROC: 3E03329 Introduction of Other Anti-infective into Peripheral Vein, Percutaneous Approach (ICD-10-PCS; 2021-09-14)
DX: I25.10 Atherosclerotic heart disease of native coronary artery without angina pectoris (principal); R56.9 Unspecified convulsions; F99 Mental disorder, not otherwise specified; I11.9 Hypertensive heart disease without heart failure; R10.13 Epigastric pain; F41.8 Other specified anxiety disorders; G89.29 Other chronic pain; M54.9 Dorsalgia, unspecified; J40 Bronchitis, not specified as acute or chronic; K21.9 Gastro-esophageal reflux disease without esophagitis; E66.01 Morbid (severe) obesity due to excess calories; Z68.43 Body mass index [BMI] 50.0-59.9, adult; I24.9 Acute ischemic heart disease, unspecified; R11.2 Nausea with vomiting, unspecified; N39.0 Urinary tract infection, site not specified; Z98.84 Bariatric surgery status; Z88.0 Allergy status to penicillin; Z96.652 Presence of left artificial knee joint; Z86.73 Personal history of transient ischemic attack (TIA), and cerebral infarction without residual deficits; Z88.8 Allergy status to other drugs, medicaments and biological substances
CPT/HCPCS: 36415; 71045-TC-FY; 74177-TC; 80048; 80053; 80061; 81003; 82550; 82553; 83605; 83690; 83735; 84443; 84484; 85025; 85610; 85730; 87086; 87186; 87340; 93005; 93010; 96365; 96366; 96367; 96372; 96375; 99285-25; C9803-CS; G0378; Q9967; U0003; U0005

== ENCOUNTER 2023-09-08 15:50 | Inpatient (IN) | payer OTHER ==
[2023-09-08] MEDS ORDERED: PANTOPRAZOLE SODIUM 40 MG VIAL ONE (18:04)
[2023-09-08 18:08] LABS: BASO % 0.3 % (0-2.0); EOS % 0.6 % (0-4.5); HEMATOCRIT 33.9 % (32.4-45.2); HEMOGLOBIN 11.4 GM/dL (10.7-15.3); LYMPH % 21.3 % (8-40); MCHC 33.5 g/dl (32.0-36.0); MEAN CELL VOLUME 77.5 fl (80-96); MEAN PLT VOLUME 7.1 fl (7.5-11.1); MONO % 7.6 % (3.8-10.2); NEUT % 70.2 % (42.8-82.8); PLATELET COUNT 272 10^3/uL (134-434); RBC 4.37 M/mm3 (3.60-5.2); WHITE BLOOD COUNT 11.7 K/mm3 (4.0-10.0)
[2023-09-08] MEDS: PANTOPRAZOLE SODIUM 40 MG VIAL IVPUSH ONE (18:12)
[2023-09-08] MEDS: DEXTROSE 5%-NORMAL SALINE 1,000 ML IV SCH (18:12)
[2023-09-08 18:15] LABS: INR 1.1 (0.83-1.09); PROTHROMBIN TIME (PATIENT) 12.7 SEC (9.7-13.0)
[2023-09-08 18:18] LABS: ACTIVATED PTT 31.8 SECONDS (25.2-36.5)
[2023-09-08 18:40] LABS: POTASSIUM 3.8 mmol/L (3.5-5.1)
[2023-09-08 18:45] LABS: BLOOD UREA NITROGEN 31.7 mg/dL (7-18); CALCIUM 10.6 mg/dL (8.5-10.1)
[2023-09-08 18:46] LABS: ALBUMIN 3.6 g/dl (3.4-5.0)
[2023-09-08 18:49] LABS: CREATININE 1.9 mg/dL (0.55-1.3)
[2023-09-08 18:50] LABS: BILIRUBIN,TOTAL 0.9 mg/dL (0.2-1); TOT PROT 8.1 g/dl (6.4-8.2)
[2023-09-08] MEDS ORDERED: ONDANSETRON 4 MG/2 ML VIAL ONE (19:12)
[2023-09-08] MEDS: ONDANSETRON 4 MG/2 ML VIAL IVPUSH ONE (19:19)
[2023-09-08] MEDS: SODIUM CHLORIDE 0.9% 500 ML INFUS.BAG IV ONE (19:19)
[2023-09-09] MEDS: DEXTROSE 5%-0.45% SALINE 1,000 ML IV SCH (03:00)
[2023-09-09 05:32] LABS: EPI CELLS 28 /uL (0-25.1); HYALINE CASTS 0 /uL (0-3.1); URINE APPEARANCE CLOUDY; URINE BACTERIA >9,000 /uL (0-1359); URINE BILIRUBIN NEGATIVE (NEGATIVE); URINE COLOR YELLOW; URINE GLUCOSE (UA) NEGATIVE (NEGATIVE); URINE KETONE 1+ (NEGATIVE); URINE LEUK ESTERASE 2+ (NEGATIVE); URINE NITRITE NEGATIVE (NEGATIVE); URINE PROTEIN 1+ (NEGATIVE); URINE RBC 20 /uL (0-23.9); URINE WBC 806 /uL (0-25.8)
[2023-09-09 06:46] LABS: URINE CRYSTALS FEW /hpf
[2023-09-09 07:24] LABS: BASO % 0.5 % (0-2.0); HEMATOCRIT 29.3 % (32.4-45.2); HEMOGLOBIN 10.1 GM/dL (10.7-15.3); LYMPH % 19.4 % (8-40); MCHC 34.5 g/dl (32.0-36.0); MEAN CELL VOLUME 78.2 fl (80-96); MEAN PLT VOLUME 7.7 fl (7.5-11.1); NEUT % 69.1 % (42.8-82.8); PLATELET COUNT 218 10^3/uL (134-434); RBC 3.75 M/mm3 (3.60-5.2); RDW 18.3 % (11.6-15.6)
[2023-09-09 07:37] LABS: POTASSIUM 3.6 mmol/L (3.5-5.1)
[2023-09-09 08:00] LABS: CALCIUM 9.5 mg/dL (8.5-10.1)
[2023-09-09 08:01] LABS: BLOOD UREA NITROGEN 29.4 mg/dL (7-18)
[2023-09-09 08:03] LABS: CREATININE 1.4 mg/dL (0.55-1.3)
[2023-09-09] MEDS: PANTOPRAZOLE SODIUM 40 MG VIAL IVPUSH SCH (10:12)
[2023-09-09] MEDS: GABAPENTIN 300 MG CAPSULE PO SCH (21:22)
[2023-09-09] MEDS: busPIRone HCL 10 MG TABLET (FP) PO SCH (21:22)
[2023-09-10 06:49] LABS: BASO % 0.6 % (0-2.0); EOS % 4.4 % (0-4.5); HEMATOCRIT 29.9 % (32.4-45.2); HEMOGLOBIN 9.8 GM/dL (10.7-15.3); LYMPH % 23.6 % (8-40); MCH 26.1 pg (25.7-33.7); MCHC 32.9 g/dl (32.0-36.0); MEAN CELL VOLUME 79.4 fl (80-96); MEAN PLT VOLUME 7.8 fl (7.5-11.1); MONO % 9.2 % (3.8-10.2); NEUT % 62.2 % (42.8-82.8); PLATELET COUNT 203 10^3/uL (134-434); RBC 3.77 M/mm3 (3.60-5.2); RDW 18.3 % (11.6-15.6); WHITE BLOOD COUNT 6.1 K/mm3 (4.0-10.0)
[2023-09-10 07:10] LABS: POTASSIUM 3.4 mmol/L (3.5-5.1)
[2023-09-10 07:15] LABS: BLOOD UREA NITROGEN 16.4 mg/dL (7-18)
[2023-09-10 07:18] LABS: CREATININE 0.9 mg/dL (0.55-1.3)
[2023-09-10 07:19] LABS: BILIRUBIN,TOTAL 0.9 mg/dL (0.2-1)
[2023-09-10 07:29] LABS: ALBUMIN 2.6 g/dl (3.4-5.0)
[2023-09-10] MEDS: KCL 10 MEQ IVPB 10 MEQ/100 ML INFUS.BAG IVPB SCH ×2 (12:31→16:12)
[2023-09-11 07:14] LABS: BASO % 0.6 % (0-2.0); EOS % 3.5 % (0-4.5); HEMATOCRIT 30.5 % (32.4-45.2); LYMPH % 26.2 % (8-40); MCH 26.3 pg (25.7-33.7); MCHC 32.7 g/dl (32.0-36.0); MEAN CELL VOLUME 80.3 fl (80-96); MEAN PLT VOLUME 7.7 fl (7.5-11.1); NEUT % 57.7 % (42.8-82.8); PLATELET COUNT 191 10^3/uL (134-434); RDW 18.4 % (11.6-15.6); WHITE BLOOD COUNT 7.3 K/mm3 (4.0-10.0)
[2023-09-11 07:43] LABS: POTASSIUM 3.9 mmol/L (3.5-5.1)
[2023-09-11 07:52] LABS: CALCIUM 9.5 mg/dL (8.5-10.1)
[2023-09-11 07:54] LABS: ALBUMIN 2.8 g/dl (3.4-5.0); BLOOD UREA NITROGEN 10.2 mg/dL (7-18)
[2023-09-11 07:57] LABS: CREATININE 0.8 mg/dL (0.55-1.3)
[2023-09-11 07:58] LABS: TOT PROT 6.4 g/dl (6.4-8.2)
[2023-09-11] MEDS: DEXTROSE 5%-0.45% SALINE 1,000 ML IV SCH (12:18)
[2023-09-12] MEDS: ACETAMINOPHEN 1000 MG/100 ML BAG IVPB ONE (00:27)
[2023-09-12 07:47] LABS: BASO % 0.4 % (0-2.0); EOS % 1.9 % (0-4.5); HEMATOCRIT 27.7 % (32.4-45.2); HEMOGLOBIN 9.6 GM/dL (10.7-15.3); LYMPH % 27.4 % (8-40); MCH 27.2 pg (25.7-33.7); MCHC 34.6 g/dl (32.0-36.0); MEAN CELL VOLUME 78.6 fl (80-96); MEAN PLT VOLUME 7.7 fl (7.5-11.1); MONO % 10.6 % (3.8-10.2); NEUT % 59.7 % (42.8-82.8); PLATELET COUNT 168 10^3/uL (134-434); RBC 3.52 M/mm3 (3.60-5.2); RDW 17.7 % (11.6-15.6); WHITE BLOOD COUNT 6.8 K/mm3 (4.0-10.0)
[2023-09-12 08:11] LABS: POTASSIUM 3.4 mmol/L (3.5-5.1)
[2023-09-12 08:16] LABS: ALBUMIN 2.5 g/dl (3.4-5.0); BLOOD UREA NITROGEN 10.3 mg/dL (7-18); CALCIUM 8.9 mg/dL (8.5-10.1)
[2023-09-12 08:19] LABS: CREATININE 0.8 mg/dL (0.55-1.3)
[2023-09-12 08:20] LABS: BILIRUBIN,TOTAL 0.9 mg/dL (0.2-1); TOT PROT 6.1 g/dl (6.4-8.2)
[2023-09-12] MEDS: POTASSIUM CHLORIDE ORAL LIQUID 20 MEQ/15 ML PO ONE (14:27)
[2023-09-12] MEDS: ONDANSETRON 4 MG/2 ML VIAL IVPUSH PRN (14:32)
[2023-09-12] MEDS: ACETAMINOPHEN 1000 MG/100 ML BAG IVPB PRN (14:32)
[2023-09-12 15:30] VITALS: BMI 37.5
[2023-09-13 08:22] LABS: POTASSIUM 3.9 mmol/L (3.5-5.1)
[2023-09-13 08:27] LABS: CALCIUM 8.8 mg/dL (8.5-10.1)
[2023-09-13 08:28] LABS: ALBUMIN 2.3 g/dl (3.4-5.0); BLOOD UREA NITROGEN 10.5 mg/dL (7-18)
[2023-09-13 08:31] LABS: CREATININE 0.7 mg/dL (0.55-1.3)
[2023-09-13 08:33] LABS: TOT PROT 6.1 g/dl (6.4-8.2)
[2023-09-14 05:55] VITALS: RESP 18
[2023-09-14] MEDS ORDERED: PANTOPRAZOLE 40 MG TABLET PO SCH (10:00)
[2023-09-15 07:51] LABS: POTASSIUM 3.3 mmol/L (3.5-5.1)
[2023-09-15 07:56] LABS: CALCIUM 8.5 mg/dL (8.5-10.1)
[2023-09-15 07:58] LABS: BLOOD UREA NITROGEN 16.8 mg/dL (7-18)
[2023-09-15 08:00] LABS: CREATININE 0.9 mg/dL (0.55-1.3)
[2023-09-15 08:01] LABS: BILIRUBIN,TOTAL 0.9 mg/dL (0.2-1); TOT PROT 5.5 g/dl (6.4-8.2)
[2023-09-15 08:29] LABS: BASO % 0.3 % (0-2.0); EOS % 2.7 % (0-4.5); HEMATOCRIT 24.9 % (32.4-45.2); HEMOGLOBIN 8.4 GM/dL (10.7-15.3); LYMPH % 23.5 % (8-40); MCH 26.7 pg (25.7-33.7); MCHC 33.7 g/dl (32.0-36.0); MEAN CELL VOLUME 79.3 fl (80-96); MEAN PLT VOLUME 7.9 fl (7.5-11.1); MONO % 10.7 % (3.8-10.2); NEUT % 62.8 % (42.8-82.8); PLATELET COUNT 163 10^3/uL (134-434); RBC 3.14 M/mm3 (3.60-5.2); RDW 17.4 % (11.6-15.6)
[2023-09-15 14:38] VITALS: BP 102/51; PULSE 87; TEMP 98.5
[2023-09-15] MEDS: KCL 10 MEQ IVPB 10 MEQ/100 ML INFUS.BAG IVPB SCH (16:10)
== END 2023-09-15 17:30 | disposition short-term general hospital (02) | DRG 378 ==
LOC: JER 15:50 → JERBED 23:06 → J4S 09-09 20:12 → OBSVTOIN 09-10 09:53
PROVIDERS: ADMIT Internal Medicine; ATTEND Internal Medicine
PROC: 0DB68ZX Excision of Stomach, Via Natural or Artificial Opening Endoscopic, Diagnostic (ICD-10-PCS; 2023-09-09)
PROC: 0DB58ZX Excision of Esophagus, Via Natural or Artificial Opening Endoscopic, Diagnostic (ICD-10-PCS; principal; 2023-09-09 13:30)
DX: K92.2 Gastrointestinal hemorrhage, unspecified (principal); D62 Acute posthemorrhagic anemia; N17.9 Acute kidney failure, unspecified; R04.2 Hemoptysis; K44.9 Diaphragmatic hernia without obstruction or gangrene; K92.0 Hematemesis; F32.9 Major depressive disorder, single episode, unspecified; I10 Essential (primary) hypertension; I25.10 Atherosclerotic heart disease of native coronary artery without angina pectoris; K21.9 Gastro-esophageal reflux disease without esophagitis; K29.70 Gastritis, unspecified, without bleeding; D64.9 Anemia, unspecified; K20.90 Esophagitis, unspecified without bleeding; E66.9 Obesity, unspecified; Z68.37 Body mass index [BMI] 37.0-37.9, adult
CPT/HCPCS: 0241U-QW; 36415; 71046-TC-FY; 74176-TC; 74220-TC-FY; 80048; 80053; 81003; 82272; 83690; 84484; 85025; 85610; 85730; 86850; 86900; 86901; 87086; 87186; 87635; 88305-TC; 88342-TC; 93005; 93010; 93306-TC; 99285-25; G0378; J0131